=== PATIENT | female | born 1940 | race Caucasian/White ===

== ENCOUNTER → 2019-09-23 13:08 | Outpatient (BNVA) | payer MEDICARE, SELFPAY | PROVIDERS: Family Provider Internal Medicine; PCP Internal Medicine; Visit Provider Orthopaedic Surgery | DX: M25.561 Pain in right knee (principal); M25.571 Pain in right ankle and joints of right foot; M17.11 Unilateral primary osteoarthritis, right knee | CPT/HCPCS: 73560; 73565; 73610 ==

== ENCOUNTER 2019-10-11 11:00 | Day surgery (SDC) | payer MEDICARE, SELFPAY ==
--- NOTE | 2019-10-11 11:35 | ECG_ITS ---
Measurements Intervals [place] Rate: 61 P: 46 WV: 127 QRS: 59 QRSD: 82 T: 72 QT: 400 QTc: [address] DEPRESSION [0.05+ mV ST DEPRESSION] Compared to ECG 04/18/2017 11:00:30 ST (T wave) deviation now present Sinus bradycardia no longer present Electronically Signed On 10-11-2019 15:46:14 CDT by Alta Ballard M.D. [email or web address]
--- NOTE | 2019-10-11 11:45 | ANES.PREANE2 ---
Pre-Anesthetic Assessment Pre-Anesthetic Assessment: Height/Weight: Height 1.55 m Preop Diagnosis: DJD Right Knee Proposed Procedure: Operation Date: 10/14/19 08:10 Proposed Procedures p Right Total Knee Arthroplasty 55284/M17.12 osteoarthritis of right knee(Right) - Dakota Hernandez MD Familial anesthetic complications: Angry upon awakening Social: Social History: No alcohol and No tobacco Exam: Pre-Anes Outpt Exam: alert, oriented x 3, clear to auscultation bilaterally and regular rate & rhythm Airway: Cervical ROM: WNL MP: 3 Additional comments: dentures Pulmonary: Pulmonary: Asthma CV/HEM: CV/HEM: Arrythmia and HTN Comments: lasix is for unilateral ankle swelling and is caused by knee : : None reported Hepatic: Hepatic: None reported GI: GI: None reported Metabolic: Metabolic: DM and Thyroid Musc/skel: Musc/skel: Lower Back Pain Neuropsych: Neuropsych: None reported Anesthetic Plan: ASA status: 2 Anesthesia: General and Regional (specify below) Risk of > 500 ml blood loss (7ml/kg in children): No PFSH Anesthesia PFSH: Social History (Updated 09/23/19 @ 13:29 by Glen Castro LPN) Smoking and tobacco status: never smoked Alcohol intake: never Data Anesthesia Cardiac Studies: No Data to Display
== END 2019-10-11 12:00 | disposition home or self-care (01) ==
LOC: OPS 01-30 10:07
PROVIDERS: PCP Internal Medicine; Visit Provider Orthopaedic Surgery
DX: Z01.818 Encounter for other preprocedural examination (principal); R94.31 Abnormal electrocardiogram [ECG] [EKG]; M17.11 Unilateral primary osteoarthritis, right knee
CPT/HCPCS: 93005

== ENCOUNTER 2019-10-28 12:42 | Observation (INO) | payer MEDICARE, SELFPAY ==
[2019-10-25 12:01] VITALS: BMI 26.4
[2019-10-28] VITALS (13 sets, daily range): BP systolic 90–145; BP diastolic 55–97; PULSE 66–101; RESP 16–20; TEMP 36.1–37.1; O2SAT 94–100
[2019-10-28 07:47] LABS: Glucose Point of Care 102 mg/dL (70-110)
[2019-10-28] MEDS: sodium chloride 0.9% 1,000 ML 30 ML IV (07:58)
--- NOTE | 2019-10-28 08:11 | P.ANESUD_ITS ---
Pre-Anesthetic Update Pre-Anesthetic Assessment: Date of Surgery/Procedure: 10/28/19 Preop Cecily gnosis: DJD Right Knee Proposed Procedure: Operation Date: 10/28/19 09:30 Proposed Procedures p Total Knee Arthroplasty 48319 M17.12(Right) - Dakota Hernandez MD Any changes to Pre-Anesthetic Assessment?: No Last Intake: Intake Last Liquid Date 10/27/19 Last Liquid Time 22:30 Last Solid Date 10/27/19 Last Solid Time 22:30 Labs Last 48hrs: Laboratory Results - last 48 hr 10/28/19 07:45 POC Glucose 102 Vitals: Temperature 96.9 F L 10/28/19 07:37 Temperature Source Temporal Artery S can 10/28/19 07:37 Pulse Rate 66 10/28/19 07:37 Pulse Rhythm 10/28/19 07:37 Pulse Strength 3+ Normal 10/28/19 07:37 Respiratory Rate 18 10/28/19 07:37 Blood Pressure 129/97 10/28/19 07:37 Blood Pressure Leda n 107 10/28/19 07:37 Pulse Oximetry 96 10/28/19 07:37 Oxygen Delivery Me thod 10/28/19 07:37 Exam: Pre-Anes Outpt Exam: alert, oriented x 3, clear to auscultation bilaterally and regular rate & rhythm Cardiac Studies: No Data to Display
--- NOTE | 2019-10-28 08:26 | ANES.PROC ---
Anesthesia Procedures Procedure/Date: 10/28/19 Nerve Block ^: Nerve Block 1: Main Anesthesia: general anesthesia Time Out Performed: Yes Consent: requested by attending/covering physician, from patient, risks and benefits reviewed and patient agrees to proceed Nerve block location: adductor canal (R) Anesthesia monitors applied: pulse oximetry, BP cuff and oxygen Nerve block position: supine Anesthetic Used: ropivicaine 0.5% and with decadron (4 mg) Amount of anesthesia used (mL): 30 Ultrasound used to: recognize landmarks and visualize and ID femerol nerve Interscalene/Femoral BLK: 4 stimuplex 21 g needle used for position and inplane approach, visualize local anesthetic spread and no vascular puncture identified Injection: neg aspiration of heme Patient Tolerated Procedure: well Complications: none
[2019-10-28] MEDS: midazolam 1 mg/mL INJ 2 mL 2 MG IVP (08:28)
--- NOTE | 2019-10-28 10:03 | W.PM.OPSFHP ---
Same Day Surgery H&P Indication for Procedure/HPI DATE OF PROCEDURE: October 28, 2019 CHIEF COMPLAINT/INDICATIONFOR SURGICAL PROCEDURE: Osteoarthritis right knee PREOP DIAGNOSIS: DJD Right Knee PLANNED PROCEDRUE: Operation Date: 10/28/19 09:30 Proposed Procedures p Total Knee Arthroplasty 35572 M17.12(Right) - Dakota Hernandez MD Medications/Allergies* Home Medications Medication Instructions Recorded Confirmed Type acetaminophen 500 mg tablet 1,000 mg PO Q6H PRN tab 09/23/19 10/28/19 History anastrozole 1 mg tablet 1 mg PO DAILY 09/23/19 10/28/19 History aspirin 81 mg tablet,delayed 81 mg PO DAILY 09/23/19 10/28/19 History release atorvastatin 20 mg tablet 20 mg PO DAILY 09/23/19 10/28/19 History calcium carbonate 600 mg calcium 600 mg PO DAILY 09/23/19 10/28/19 History (1,500 mg) tablet furosemide 20 mg tablet 10 mg PO QAM PRN 09/23/19 10/28/19 History levothyroxine 75 mcg capsule 75 mcg PO DAILY 09/23/19 10/28/19 History losartan 25 mg tablet 25 mg PO DAILY 09/23/19 10/28/19 History meloxicam 15 mg tablet 15 mg PO DAILY 09/23/19 10/28/19 History metformin 500 mg tablet 500 mg PO BID 09/23/19 10/28/19 History metoprolol tartrate 50 mg tablet 50 mg PO BID 09/23/19 10/28/19 History montelukast 10 mg tablet 10 mg PO DAILY 09/23/19 10/28/19 History multivitamin 1 tab PO DAILY 09/23/19 10/28/19 History sennosides 8.6 mg capsule 8.6 mg PO BID PRN 09/23/19 10/28/19 History Allergies/Adverse Reactions Allergy/AdvReac Type Severity Reaction Status Date / Time No Known Allergies Allergy Verified 10/25/19 10:35 Current Medications: Generic Name Dose Route Start Last Admin Trade Name Freq PRN Reason Stop Dose Admin Sodium Chloride 1,000 mls @ 30 mls/hr 10/28/19 06:15 10/28/19 07:58 Sodium Chloride 0.9% IV 10/29/19 06:14 30 mls/hr .Q24H ELIAN Administration Pertinent History/Comorbid Conditions* Social History Smoking and tobacco status: never smoked Alcohol intake: never Pertinent Exam Findings alert, oriented x 3 and clear to auscultation bilaterally Recommendations Surgery/Procedure today Coding Level of Care Code Acute Heating And Ventilating Drafter for Giovanni Cabello
[2019-10-28] MEDS: EPINEPHrine 1 mg/mL INJ XX (11:45)
[2019-10-28] MEDS: ketorolac 30 mg/mL INJ XX (11:46)
[2019-10-28] MEDS: tranexamic acid 1,000 mg/10mL SDV 1000 MG IRRIGATION (11:47)
--- NOTE | 2019-10-28 12:26 | XR_ITS ---
WS: [id number] Right knee, 2 views, 10/28/2019 Clinical Data: Right TKA Comparison: Standing knees, 09/23/2019 Findings: A right knee arthroplasty is in position. The components are in good apposition. Anterior surgical st aples are seen. There is air in the joint from the recent surgery. XR/XR knee RT 1-2V 40031 Impression: Right knee arthroplasty.
--- NOTE | 2019-10-28 12:26 | PM.OP ---
Operative Report Date of procedure: October 28, 2019 Pre-op Diagnosis: DJD Right Knee Post-op diagnosis: same Post-op Findings: Same Procedure Done: Right total knee arthroplasty Implants: [place] total knee arthroplasty components were used includin) Size 1 triathalon cruciate retaining femoral component 2) Size 1 Tritanium tibial component 3) 29 mm /9 mm thickness Tritanium asymetric patella 4) Size 1/11 mm thickness CR tibial bearing insert Pathology: none sent Surgeon: Dakota Hernandez Anesthesia: General and Nerve Block (Adductor canal block) Estimated blood loss (mL): 200 Findings: Patient had severe eburnation of the medial femoral condyle medial tibial plateau with bone loss about the far medial tibia. Condition: stable Disposition: PACU Procedure: The patient was taken to the operating room. Patient was given 1 g of tranexamic acid . The above anesthesia provided by the anesthesia service. A timeout was performed. The patient was prepped and draped in the usual fashion with the lower extremity exposed. A anterior incision was made, midline, from a point proximal to the patella to the distal tibial tubercle. Dissection was accomplished through the subcutaneous fat to the extensor mechanism. The vastus medialis oblique is musculature was elevated with a retractor and a capsular incision made from the medial patella along the patellar tendon up into the superior capsule. The patella could be displaced laterally and the knee flexed. The patellar fat pad was resected to provide better visibility. Retractors were placed medially and laterally adjacent to the tibial plateau. The femoral canal was drilled in line with the longitudinal axis of the femur. Intramedullary femoral guide for used to make a distal femoral cut in 5 degrees of valgus, resecting 8 mm from the more prominent condyle. Next the extra medullary tibial guide was placed in alignment with the longitudinal axis of the tibia. The cutting guides were set to remove just over 9 mm from the high tibial plateau. The proximal tibia was then cut. The femoral measuring guide was then placed over the distal femur. Rotation was verified checking the relationship of the guide to the condyle and the trochlear groove. The femur was measured and cut for the desired femoral component. The desired tibial baseplate was then chosen. A trial reduction with the femur tibial baseplate and polyethylene was done, assuring that the knee was stable throughout full motion. Ligament balancing involved release only deep medial collateral ligament and removal of small medial osteophytes.The tibia was prepared for the tibial baseplate. Patellar thickness was then measured. The patella was cut removing articular cartilage and prepared for appropriate size patellar button. All surfaces were cleaned with pulsatile lavage. The femur tibia and patella were then press-fit into place. The posterior capsule and collateral ligaments were then injected with a solution of 100 mL of 0.2% ropivacaine, 1 mL of a 1:1000 epinephrine solution, and 30 mg of Toradol. Final polyethylene component was then snapped into place into the tibia. 2 grams of tranexamic acid were applied to the wound. The tourniquet was deflated. The tranxanemic acid was left contact with the knee for 5 minutes before the knee was irrigated with saline. The extensor retinaculum was closed with 1 Ethibond. The subcutaneous tissues were closed with 2-0 Vicryl and the skin was closed with skin jovana. A compressive dressing was applied. The patient was taken to recovery room in stable condition.
--- NOTE | 2019-10-28 12:27 | SUR.PHASEI ---
1221- ORAL AIRWAY REMOVED, SIMPLE MASK IN PLACE AT 8LPM, SAT 99%
[2019-10-28] MEDS: chlorhexidine gluconate 0.12% Btl 473 mL 30 ML MUCOUS MEM ×3 (15:40→20:10)
[2019-10-28] MEDS: oxyCODONE 5 mg IR Tab/Cap PO ×2 (16:01→20:09)
[2019-10-28 17:52] LABS: Glucose Point of Care 147 mg/dL (70-110)
[2019-10-28] MEDS: sennosides-docusate Tablet 2 TAB PO (18:17)
[2019-10-28] MEDS: metoprolol tartrate 50 mg Tablet PO (18:18)
[2019-10-28] MEDS: atorvastatin 40 mg Tablet 20 MG PO (20:09)
[2019-10-28] MEDS: sodium chloride 0.9% 1,000 ML 100 ML IV (20:10)
[2019-10-28 22:18] LABS: Glucose Point of Care 179 mg/dL (70-110)
[2019-10-29 04:00] VITALS: BP 102/67; PULSE 72; RESP 16; TEMP 36.6; O2SAT 96
[2019-10-29 06:36] VITALS: RESP 16
[2019-10-29] MEDS: oxyCODONE 5 mg IR Tab/Cap PO (06:36)
[2019-10-29 06:38] LABS: Glucose Point of Care 118 mg/dL (70-110)
[2019-10-29 07:18] VITALS: BP 157/76; PULSE 86; RESP 16; TEMP 36.9; O2SAT 97
[2019-10-29] MEDS: aspirin 81 mg EC Tablet PO (08:00)
[2019-10-29 08:01] VITALS: BP 157/76
[2019-10-29] MEDS: multivitamin therapeutic Tablet 1 TAB PO (08:01)
[2019-10-29] MEDS: meloxicam 7.5 mg tablet 15 MG PO (08:01)
[2019-10-29] MEDS: metoprolol tartrate 50 mg Tablet PO (08:01)
[2019-10-29] MEDS: levothyroxine 150 mcg Tablet 75 MCG PO (08:01)
[2019-10-29] MEDS: losartan 50 mg Tablet 25 MG PO (08:01)
[2019-10-29] MEDS: chlorhexidine gluconate 0.12% Btl 473 mL 30 ML MUCOUS MEM (08:02)
[2019-10-29] MEDS: sennosides-docusate Tablet 2 TAB PO (08:02)
[2019-10-29] MEDS: anastrozole 1 mg Tablet PO (08:06)
--- NOTE | 2019-10-29 08:06 | P.DS_ITS ---
Discharge Providers Date of Admission: 10/28/19 12:42 Date of Discharge: October 29, 2019 Attending Provider at Admission: Dakota Hernandez MD Attending Provider at Discharge: Dakota Hernandez MD Primary Care Provider: Balaji Angulo MD Diagnoses at Discharge Discharge Diagnosis (1) Osteoarthritis of right knee: Status: Resolved (2) Status post right knee replacement: Status: Acute Reason for Visit Reason for Visit: Reason For Visit: Primary ostoarthrists of right knee Hospital Course Discharge Summary: Patient underwent elective right total knee arthroplasty on 10/28/2019. Postoperatively she did very well. Her pain was well controlled with oral medications. She made excellent progress with therapy. Her diabetes is initially managed with a sliding scale insulin. She was placed on metformin on her first postoperative day. On that day she was independent with her walker and thought stable for discharge. Physical Exam Narrative: EXAM NARRATIVE: On the day of discharge her incision revealed only trace drainage as expected. She has no calf swelling. Her motion was from 10 d egrees to 90 degrees. She had no distal neurovascular deficit Urinary Catheter Management^: Tejeda: Cath Placed During This Visit: yes, but has since been removed by the nurse Reason for Continuing Indwelling Catheter: Perioperative Use in Selected Surgeries Urinary Catheter Date of Insertion: 10/28/19 Urinary Catheter Time of Insertion: 10:35 Date Urinary Catheter Removed: 10/29/19 Time Urinary Catheter Discontinued: 06:00 Discharge Data Data Completed and Pending: Completed Studies During Hospitalization Category Date Time Status XR knee RT 1-2V 7 3560 Routine Exams 10/28/19 12:26 Completed Pending at discharge Category Date Time Status Hemoglobin AM LAB S Lab 10/30/19 04:00 Ordered Labs from last 24 hours 10/29/19 10/28/19 10/28/19 06:15 22:10 17:19 POC Glucose 118 179 147 Vitals: Last Vital Signs Temp 98.4 F 10/29/19 07:18 Pulse 86 10/29/19 07:18 Resp 16 10/29/19 07:18 BP 157/76 10/29/19 07:18 Pulse Ox 97 10/29/19 07:18 Discharge Plan Discharge Patient Disposition: Home, Self-Care Condition: Stable Prescriptions: New oxycodone 5 mg Tablet 5 mg PO Q4H PRN (Reason: Moderate Pain) Qty: 30 RF: 0 Continued acetaminophen [Tylenol Extra Strength] 500 mg tablet 1,000 mg PO Q6H PRN (Reason: Pain) RF: 0 anastrozole 1 mg tablet 1 mg PO DAILY RF: 0 aspirin 81 mg tablet,delayed release (DR/EC) 81 mg PO DAILY RF: 0 atorvastatin 20 mg tablet 20 mg PO DAILY RF: 0 calcium carbonate [Calcium 600] 600 mg calcium (1,500 mg) tablet 600 mg PO DAILY RF: 0 levothyroxine 75 mcg capsule 75 mcg PO DAILY RF: 0 losartan 25 mg tablet 25 mg PO DAILY RF: 0 meloxicam 15 mg tablet 15 mg PO DAILY RF: 0 metformin 500 mg tablet 500 mg PO BID RF: 0 metoprolol tartrate 50 mg tablet 50 mg PO BID RF: 0 montelukast 10 mg tablet 10 mg PO DAILY RF: 0 multivitamin [Daily Multi-Vitamin] Tablet 1 tab PO DAILY RF: 0 senna 8.6 mg capsule 8.6 mg PO BID PRN (Reason: Constipation) RF: 0 furosemide [Lasix] 20 mg tablet 10 mg PO QAM PRN (Reason: Abdominal Discomfort) RF: 0 mupirocin 2 % ointment 1 applic TOPICAL BID Qty: 30 RF: 0 Discharge Orders: Discharge Order (Routine); Ordered 10/29/19 Ordered By: Dakota Hernandez Other Ambulatory Orders: DME: Ro[facility] (Order) Location: None Selected Ordered By: Dakota Hernandez Referrals: [facility] ([facility]) [Outside] Dakota Hernandez MD [Physician] - 2 weeks Discharge Diet: Advance as tolerated Discharge Activity: Limit activity as instructed Activity Restrictions/Additional Instructions: May shower once incisions completely free of drainage. Replaced dressings as needed for drainage.. Take Meloxicam as before surgery Take oxycodone for breakthrough pain. Exercises per physical therapy. Ice and elevate knees as needed for pain and swelling.. Discharge Attestations Time Spent in Discharge Care*: other Quality Metrics Clinical Quality Measures During this hospital stay, did patient experience: None Coding Level of Care Code Acute Diagnostic Sales Specialist for Giovanni Fwlady Diagnoses Osteoarthritis of right knee M17.11 Status post right knee replacement Z96.651
[2019-10-29 08:56] VITALS: RESP 16
[2019-10-29] MEDS: morphine 4 mg/mL SDV 1 mL 2 MG IVP (08:56)
[2019-10-29 09:49] VITALS: BP 157/76; PULSE 86; RESP 16; TEMP 36.9; O2SAT 97
== END 2019-10-29 10:35 | disposition home or self-care (01) ==
LOC: MEDSURG 14:40
PROVIDERS: Admitting Provider Orthopaedic Surgery; Family Provider Internal Medicine; PCP Internal Medicine; Visit Provider Orthopaedic Surgery
PROC: (CPT 27447; principal; 2019-10-28 09:20)
DX: M17.11 Unilateral primary osteoarthritis, right knee (principal); Z79.82 Long term (current) use of aspirin
CPT/HCPCS: 27447; 12345; 36416; 51702; 73560; 82962; 96361; 96365; 96374; 96375; 97110; 97116; 97161; 97166; C1776; G0378; J0171; J0690; J1100; J1580; J1815; J1885; J2250; J2270; J2405; J2704; J2795; J3010; J3490; J7030; J8999

== ENCOUNTER 2019-11-20 06:00 | Outpatient (RCR) | payer MEDICARE, SELFPAY | END 2019-12-10 23:59 | disposition home or self-care (01) | LOC: WPT 06:00 | PROVIDERS: PCP Internal Medicine; Referring Provider Orthopaedic Surgery; Visit Provider Orthopaedic Surgery | DX: Z47.89 Encounter for other orthopedic aftercare (principal); Z96.651 Presence of right artificial knee joint | CPT/HCPCS: 97110; 97140; 97150; 97162; 97530 ==

== ENCOUNTER 2019-11-29 08:53 | Outpatient (CLI) | payer MEDICARE, SELFPAY ==
[2019-11-29 09:36] LABS: Basophils % 0.6 %; Eosinophils # 0.3 10^3/uL (0.0-0.8); Eosinophils % 4.9 %; Hematocrit 40.1 % (37.0-47.0); Hemoglobin 12.2 g/dL (11.5-15.3); Lymphocytes # 1.9 10^3/uL (0.8-4.8); Lymphocytes % 35.3 %; Mean Corpuscular HGB Conc 30.4 g/dL (30.0-36.0); Mean Corpuscular Hemoglobin 30.1 pg (28.0-34.0); Mean Platelet Volume 9.6 fL (7.4-10.4); Monocytes # 0.6 10^3/uL (0.2-0.9); Monocytes % 10.6 %; Neutrophils # 2.6 10^3/uL (1.8-7.7); Neutrophils % 48.4 %; Nucleated Red Blood Cells % 0 %; Platelet Count 230 10^3/cmm (130-400); Red Blood Count 4.05 10^6/uL (4.1-5.3); Red Cell Distribution Width 14.7 % (12.1-15.1); White Blood Count 5.3 10^3/uL (4.0-10.0)
[2019-11-29 10:11] LABS: Alanine Aminotransferase 9 U/L (0-33); Albumin Level 4.4 g/dL (3.5-5.2); Alkaline Phosphatase 104 IU/L (35-105); Anion Gap 13.4 (5-19); Aspartate Amino Transferase 15 U/L (0-32); Blood Urea Nitrogen 23 mg/dL (8-23); Carbon Dioxide 26 mmol/L (22-29); Chloride 104 mmol/L (98-107); Globulin 2.2 g/dL (1.3-4.6); Glucose 88 mg/dL (65-115); Osmolality Calculated 284 mOsm/kg (285-295); Potassium 4.4 mmol/L (3.5-5.1); Sodium 139 mmol/L (136-145); Total Bilirubin 0.4 mg/dL (0.15-1.2); Total Protein 6.6 g/dL (6.6-8.7)
--- NOTE | 2019-11-29 10:43 | ONC FU_ITS ---
Dr. 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 , patient recently underwent left breast mass excision with sentinel lymph node biopsy on 04/20/2017, tolerated procedure very well final pathology report showed DCIS with medial margin DCIS within 1 mm of inked margin rest was clear and no invasive component was seen but DCIS 2.5 x 1.5 cm lymph node was negative ER 100% NH 99% HER-2/te negative on 05/11/2017 she underwent reexcision and it shows residual DCIS DCIS within 2 mm of posterior inked margin. s/p postlumpectomy radiation therapy. started On Arimidex/vitamin D/calcium on 06/19 2017 , tolerating well Follow-up mammogram done on 05/22/2019 showed BI-RADS 2, benign Came for follow-up, denies any specific complaint today, no fever chills, no nausea or vomiting, no diarrhea or constipation, no new musculoskeletal pain. Since her last visit she underwent right knee replacement on October 28, 2019, now healing well. Tolerating Arimidex/vitamin D/calcium well otherwise Medications: Acetaminophen PM Ex St 1 Tablet (of 500-25 mg) Oral at bedtime, Arimidex 1 (1 mg) Tablet Oral daily, Aspirin 1 (81 mg) Tablet Oral daily, Budesonide-Formoterol Fumarate 1 (160-4.5 mcg/act) Aerosol Inhalation b.i.d., Docusate Sodium 1 Tablet (of 100 mg) Oral daily, Levothyroxine Sodium 1 Tablet (of 88 mcg) Oral daily, Lipitor 1 Tablet (of 20 mg) Oral daily, Lisinopril 1 Tablet (of 5 mg) Oral daily, Losartan Potassium 1 Tablet (of 25 mg) Oral daily, MetFORMIN HCl 1 Tablet (of 500 mg) Oral daily, Metoprolol Tartrate 1 Tablet (of 50 mg) Oral b.i.d., Montelukast Sodium 1 Tablet (of 10 mg) Oral daily, Naproxen 1 Tablet (of 500 mg) Oral b.i.d. Allergies: No Known Allergies. Review of Systems: Constitutional - Appetite is fair and weight is stable. No fever, chills, hot flashes, or night sweats. Energy level is poor, ENMT - Patient denies sinus congestion/drainage. No mouth sores. No sore throat or difficulty swallowing, Hematologic/Lymphatic - No abnormal bruising or bleeding, Respiratory - Some shortness of breath with exertion. No cough. No pleuritic pain or hemoptysis, Cardiovascular - No angina pain. No palpitations, Gastrointestinal - No nausea or vomiting. No heartburn or acid reflux. No diarrhea or constipation. No blood in the stool or black stools, Genitourinary (F) - No dysuria or hematuria. No urinary frequency. No urgency or incontinence, Musculoskeletal - Chronic joint pain , Neurologic - Occasional headache, no dizziness. No numbness/paresthesias or other focal neurologic symptoms, Psychiatric - No anxiety or depression. No insomnia. Vital Signs: Performed on Nov 29, 2019 10:28 Height - 62.00 in Weight - 138.0 lbs (LOW) BSA - 1.63 sq.m BMI - 25.24 Temperature - 98.1 F (LOW) Pulse - 67 /min Respiration - 18 /min BP - 131/84 mm(hg) O2 Sat - 96 % Pain - 0 Performance Status: 0 - Fully active, able to carry on all predisease activities without restrictions. (ECOG) Physical Examination: Respiratory - Lungs are clear, Cardiovascular - Regular rate and rhythm of heart, Gastrointestinal - Abdomen soft, bowel sounds present, Extremities - No visible edema. Lab/Imaging: Most recent lab results are not available for this patient. Impression: DCIS with no invasive component. Involving left breast status post lumpectomy with sentinel lymph node on 04/20/2017, status post reexcision for positive surgical margin on 05/11/2017 showed residual DCIS. 2.5 x 1.5 cm in size, grade 3 pTis (DCIS) sentinel lymph node negative for metastatic disease pN0 ER 100% NH 99% HER-2/te negative Status post postlumpectomy radiation therapy Started on Arimidex 1 mg vittamin D/calcium supplements daily 06/20/17 Persistent Left breast retroareolar mass questionable etiology, postradiation changes versus recurrence/progression of disease Repeat mammogram on 11/01/2017 showed at 11:00 position complex 1.8 x 1.1 x 1.2 cystic complex fluid collection with a few internal septations. No internal vascularity could be due to postoperative changes but indeterminate so aspiration/sampling was recommended. Left breast nodule excisional biopsy done on 12/22/2017 showed no atypia or malignancy identified but compatible with lipoma Plan: Discussed with patient regarding her labs white blood count 5.3 hemoglobin 12.2 hematocrit 40.1 platelets 230,000 CMP within normal limits Clinically, patient is doing well with no signs symptoms suggestive of recurrence of disease, tolerating adjuvant Arimidex/vitamin D/calcium well. She will return to clinic in 6 months with follow-up mammogram. Signed By: Bertha Dumont M.D. <<Signature on File>>
== END 2019-11-29 08:54 | disposition home or self-care (01) ==
PROVIDERS: PCP Internal Medicine; Visit Provider Internal Medicine Hematology & Oncology
DX: Z08 Encounter for follow-up examination after completed treatment for malignant neoplasm (principal); Z86.000 Personal history of in-situ neoplasm of breast; Z79.811 Long term (current) use of aromatase inhibitors; Z92.3 Personal history of irradiation
CPT/HCPCS: 36415; 80053; 85025; G0463

== ENCOUNTER 2019-12-11 06:00 | Outpatient (RCR) | payer MEDICARE, SELFPAY | END 2020-01-10 23:59 | disposition home or self-care (01) | LOC: WPT 06:00 | PROVIDERS: PCP Internal Medicine; Referring Provider Orthopaedic Surgery; Visit Provider Orthopaedic Surgery | DX: Z47.1 Aftercare following joint replacement surgery (principal); Z96.651 Presence of right artificial knee joint | CPT/HCPCS: 97110 ==

== ENCOUNTER 2020-05-26 09:32 | Outpatient (CLI) | payer MEDICARE, SELFPAY ==
--- NOTE | 2020-05-26 09:42 | MM_ITS ---
WS: [id number] Bilateral diagnostic digital mammogram, 05/26/2020 Clinical Data: HX OF BREAST CA Comparison: 05/22/2019, 11/01/2017, 01/09/2017, 04/27/2016, 09/29/2015, 09/18/2014. Findings: The breasts are heterogeneously dense. There is skin retraction and thickening in the left breast unc hanged from surgery and radiation therapy. There are vascular calcifications in both breasts. The rig ht breast shows no spiculated masses or clustered calcifications. MM/[id number] Impression: 1. Negative right breast unchanged. 2. Postsurgical and treatment changes in the left breast unchanged. 3. Recommend annual mammograms. BIRADS: 2-Benign FOLLOW UP: 1 Year Follow-up The CAD color checker roving or yarn was used.
== END 2020-05-26 09:33 | disposition home or self-care (01) ==
LOC: RADSHAW 09:35
PROVIDERS: PCP Internal Medicine; Visit Provider Internal Medicine Hematology & Oncology
DX: Z85.3 Personal history of malignant neoplasm of breast (principal)
CPT/HCPCS: 77066

== ENCOUNTER 2020-05-29 08:29 | Outpatient (CLI) | payer MEDICARE, SELFPAY ==
--- NOTE | 2020-05-29 09:12 | ONC FU_ITS ---
Dr. 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 , patient recently underwent left breast mass excision with sentinel lymph node biopsy on 04/20/2017, tolerated procedure very well final pathology report showed DCIS with medial margin DCIS within 1 mm of inked margin rest was clear and no invasive component was seen but DCIS 2.5 x 1.5 cm lymph node was negative ER 100% [place] 99% HER-2/te negative on 05/11/2017 she underwent reexcision and it shows residual DCIS DCIS within 2 mm of posterior inked margin. s/p postlumpectomy radiation therapy. started On Arimidex/vitamin D/calcium on 06/19 2017 , tolerating well Follow-up mammogram done on 05/22/2019 showed BI-RADS 2, benign Follow-up mammogram done on May 26, 2020 showed postsurgical changes in left breast, negative right breast, BI-RADS 2, benign Came for follow-up, denies any specific complaints, no fever chills, no nausea or vomiting, no diarrhea or constipation, no hot flashes, no worsening of chronic mild musculoskeletal discomfort especially involving left shoulder and right hand. Tolerating Arimidex/vitamin D/calcium well Medications: Acetaminophen PM Ex St 1 Tablet (of 500-25 mg) Oral at bedtime, Arimidex 1 (1 mg) Tablet Oral daily, Aspirin 1 (81 mg) Tablet Oral daily, Budesonide-Formoterol Fumarate 1 (160-4.5 mcg/act) Aerosol Inhalation b.i.d., Docusate Sodium 1 Tablet (of 100 mg) Oral daily, Levothyroxine Sodium 1 Tablet (of 88 mcg) Oral daily, Lipitor 1 Tablet (of 20 mg) Oral daily, Lisinopril 1 Tablet (of 5 mg) Oral daily, Losartan Potassium 1 Tablet (of 25 mg) Oral daily, MetFORMIN HCl 1 Tablet (of 500 mg) Oral b.i.d., Metoprolol Tartrate 1 Tablet (of 50 mg) Oral b.i.d., Montelukast Sodium 1 Tablet (of 10 mg) Oral daily, Naproxen 1 Tablet (of 500 mg) Oral b.i.d. Allergies: No Known Allergies. Review of Systems: Constitutional - Appetite is fair and weight is stable. No fever, chills, hot flashes, or night sweats. Energy level is poor, ENMT - Patient denies sinus congestion/drainage. No mouth sores. No sore throat or difficulty swallowing, Hematologic/Lymphatic - No abnormal bruising or bleeding, Respiratory - Some shortness of breath with exertion. No cough. No pleuritic pain or hemoptysis, Cardiovascular - No angina pain. No palpitations, Gastrointestinal - No nausea or vomiting. No heartburn or acid reflux. No diarrhea or constipation. No blood in the stool or black stools, Genitourinary (F) - No dysuria or hematuria. No urinary frequency. No urgency or incontinence, Musculoskeletal - Chronic joint pain, Pt also reports muscle aches, specifically in shoulder , Neurologic - Occasional headache, no dizziness. No numbness/paresthesias or other focal neurologic symptoms, Psychiatric - No anxiety or depression. No insomnia. Vital Signs: Performed on May 29, 2020 08:43 Height - 62.00 in Weight - 137.4 lbs (LOW) BSA - 1.63 sq.m BMI - 25.13 Temperature - 97.2 F (LOW) Pulse - 64 /min Respiration - 20 /min BP - 155/90 mm(hg) (HIGH) O2 Sat - 98 % Pain - 0 Performance Status: 1 - No physically strenuous activity, but ambulatory and able to carry out light or sedentary work (e.g. office work, light house work). (ECOG) Physical Examination: Respiratory - Lungs are clear to auscultation, Cardiovascular - Regular rate and rhythm of heart, Gastrointestinal - Soft, bowel sounds present, Extremities - No visible edema or rash. Lab/Imaging: Most recent lab results are not available for this patient. Impression: DCIS with no invasive component. Involving left breast status post lumpectomy with sentinel lymph node on 04/20/2017, status post reexcision for positive surgical margin on 05/11/2017 showed residual DCIS. 2.5 x 1.5 cm in size, grade 3 pTis (DCIS) sentinel lymph node negative for metastatic disease pN0 ER 100% [place] 99% HER-2/te negative Status post postlumpectomy radiation therapy Started on Arimidex 1 mg vittamin D/calcium supplements daily 06/20/17 Persistent Left breast retroareolar mass questionable etiology, postradiation changes versus recurrence/progression of disease Repeat mammogram on 11/01/2017 showed at 11:00 position complex 1.8 x 1.1 x 1.2 cystic complex fluid collection with a few internal septations. No internal vascularity could be due to postoperative changes but indeterminate so aspiration/sampling was recommended. Left breast nodule excisional biopsy done on 12/22/2017 showed no atypia or malignancy identified but compatible with lipoma Plan: Discussed with patient regarding her labs white blood count 5.3 hemoglobin 12.2 hematocrit 40.1 platelets 230,000 CMP within normal limits Clinically, patient is doing well with no signs symptoms suggestive of recurrence of disease, tolerating adjuvant Arimidex/vitamin D/calcium well. She will return to clinic in 6 months with follow-up mammogram. Signed By: Bertha Dumont M.D. <<Signature on File>>
--- NOTE | 2020-05-29 09:17 | ONC FU_ITS ---
Dr. 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 , patient recently underwent left breast mass excision with sentinel lymph node biopsy on 04/20/2017, tolerated procedure very well final pathology report showed DCIS with medial margin DCIS within 1 mm of inked margin rest was clear and no invasive component was seen but DCIS 2.5 x 1.5 cm lymph node was negative ER 100% [place] 99% HER-2/te negative on 05/11/2017 she underwent reexcision and it shows residual DCIS DCIS within 2 mm of posterior inked margin. s/p postlumpectomy radiation therapy. started On Arimidex/vitamin D/calcium on 06/19 2017 , tolerating well Follow-up mammogram done on 05/22/2019 showed BI-RADS 2, benign Follow-up mammogram done on May 26, 2020 showed postsurgical changes in left breast, negative right breast, BI-RADS 2, benign Came for follow-up, denies any specific complaints, no fever chills, no nausea or vomiting, no diarrhea or constipation, no hot flashes, no worsening of chronic mild musculoskeletal discomfort especially involving left shoulder and right hand. Tolerating Arimidex/vitamin D/calcium well Medications: Acetaminophen PM Ex St 1 Tablet (of 500-25 mg) Oral at bedtime, Arimidex 1 (1 mg) Tablet Oral daily, Aspirin 1 (81 mg) Tablet Oral daily, Budesonide-Formoterol Fumarate 1 (160-4.5 mcg/act) Aerosol Inhalation b.i.d., Docusate Sodium 1 Tablet (of 100 mg) Oral daily, Levothyroxine Sodium 1 Tablet (of 88 mcg) Oral daily, Lipitor 1 Tablet (of 20 mg) Oral daily, Lisinopril 1 Tablet (of 5 mg) Oral daily, Losartan Potassium 1 Tablet (of 25 mg) Oral daily, MetFORMIN HCl 1 Tablet (of 500 mg) Oral b.i.d., Metoprolol Tartrate 1 Tablet (of 50 mg) Oral b.i.d., Montelukast Sodium 1 Tablet (of 10 mg) Oral daily, Naproxen 1 Tablet (of 500 mg) Oral b.i.d. Allergies: No Known Allergies. Review of Systems: Constitutional - Appetite is fair and weight is stable. No fever, chills, hot flashes, or night sweats. Energy level is poor, ENMT - Patient denies sinus congestion/drainage. No mouth sores. No sore throat or difficulty swallowing, Hematologic/Lymphatic - No abnormal bruising or bleeding, Respiratory - Some shortness of breath with exertion. No cough. No pleuritic pain or hemoptysis, Cardiovascular - No angina pain. No palpitations, Gastrointestinal - No nausea or vomiting. No heartburn or acid reflux. No diarrhea or constipation. No blood in the stool or black stools, Genitourinary (F) - No dysuria or hematuria. No urinary frequency. No urgency or incontinence, Musculoskeletal - Chronic joint pain, Pt also reports muscle aches, specifically in shoulder , Neurologic - Occasional headache, no dizziness. No numbness/paresthesias or other focal neurologic symptoms, Psychiatric - No anxiety or depression. No insomnia. Vital Signs: Performed on May 29, 2020 08:43 Height - 62.00 in Weight - 137.4 lbs (LOW) BSA - 1.63 sq.m BMI - 25.13 Temperature - 97.2 F (LOW) Pulse - 64 /min Respiration - 20 /min BP - 155/90 mm(hg) (HIGH) O2 Sat - 98 % Pain - 0 Performance Status: 1 - No physically strenuous activity, but ambulatory and able to carry out light or sedentary work (e.g. office work, light house work). (ECOG) Physical Examination: Respiratory - Lungs are clear to auscultation, Cardiovascular - Regular rate and rhythm of heart, Gastrointestinal - Soft, bowel sounds present, Extremities - No visible edema or rash. Lab/Imaging: Most recent lab results are not available for this patient. Impression: DCIS with no invasive component. Involving left breast status post lumpectomy with sentinel lymph node on 04/20/2017, status post reexcision for positive surgical margin on 05/11/2017 showed residual DCIS. 2.5 x 1.5 cm in size, grade 3 pTis (DCIS) sentinel lymph node negative for metastatic disease pN0 ER 100% [place] 99% HER-2/te negative Status post postlumpectomy radiation therapy Started on Arimidex 1 mg vittamin D/calcium supplements daily 06/20/17 Persistent Left breast retroareolar mass questionable etiology, postradiation changes versus recurrence/progression of disease Repeat mammogram on 11/01/2017 showed at 11:00 position complex 1.8 x 1.1 x 1.2 cystic complex fluid collection with a few internal septations. No internal vascularity could be due to postoperative changes but indeterminate so aspiration/sampling was recommended. Left breast nodule excisional biopsy done on 12/22/2017 showed no atypia or malignancy identified but compatible with lipoma Follow-up mammogram done on May 26, 2020 showed BI-RADS 2, benign Plan: .Discussed with patient regarding her mammogram findings which shows no evidence of recurrence of disease, clinically, she is doing well with no new signs symptoms suggestive of recurrence of disease,, tolerating Arimidex/vitamin D/calcium well considering her age and now on aromatase inhibitor, patient is high risk for osteoporosis, we will consider DEXA scan to assess bone health prior to her next visit Signed By: Bertha Dumont M.D. <<Signature on File>>
== END 2020-05-29 08:30 | disposition home or self-care (01) ==
LOC: ONCMED 08:31
PROVIDERS: PCP Internal Medicine; Visit Provider Internal Medicine Hematology & Oncology
DX: D05.12 Intraductal carcinoma in situ of left breast (principal); E55.9 Vitamin D deficiency, unspecified; E83.51 Hypocalcemia; Z79.818 Long term (current) use of other agents affecting estrogen receptors and estrogen levels
CPT/HCPCS: 99214

== ENCOUNTER → 2020-07-10 07:56 | Outpatient (BNVA) | payer MEDICARE, SELFPAY | PROVIDERS: PCP Internal Medicine; Visit Provider Orthopaedic Surgery | DX: Z47.1 Aftercare following joint replacement surgery (principal); Z96.651 Presence of right artificial knee joint | CPT/HCPCS: 73560; 73565 ==

== ENCOUNTER 2020-11-19 13:34 | Outpatient (CLI) | payer MEDICARE, SELFPAY ==
--- NOTE | 2020-11-19 13:47 | XR_ITS ---
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 FINDINGS: The L1-L4 bone mineral density measures 1.210 g/cm2. This corresponds to a T score score of 0.2 and Z score of 2.1. Left femoral neck bone mineral density measures 0.918 g/cm2. This corresponds to a T score of -0.7 an d Z score of 1.2. Right femoral neck bone mineral density measures 0.984 g/cm2. This corresponds to a T score -0.2of an d Z score of 1.7. Mean femoral neck bone mineral density measures 0.951 g/cm2. This corresponds to a T score of -0.5 an d Z score of 1.5. XR/XR DEXA axial skeleton* [id number] IMPRESSION: Normal bone mineralization. Patient's FRAX calculated 10 year probability for major osteoporotic fracture i s 18.6 % and osteoporotic hip fracture is 3.8%.
== END 2020-11-19 13:35 | disposition home or self-care (01) ==
PROVIDERS: PCP Internal Medicine; Visit Provider Internal Medicine Hematology & Oncology
DX: Z78.0 Asymptomatic menopausal state (principal); Z79.811 Long term (current) use of aromatase inhibitors
CPT/HCPCS: 77080

== ENCOUNTER 2020-11-27 08:40 | Outpatient (CLI) | payer MEDICARE, SELFPAY ==
[2020-11-27 09:31] LABS: Basophils # 0.1 10^3/uL (0.0-0.1); Basophils % 0.5 %; Eosinophils # 0.3 10^3/uL (0.0-0.8); Eosinophils % 3.5 %; Hematocrit 42.7 % (37.0-47.0); Hemoglobin 13.6 g/dL (11.5-15.3); Lymphocytes # 2.1 10^3/uL (0.8-4.8); Lymphocytes % 21.8 %; Mean Corpuscular HGB Conc 31.9 g/dL (30.0-36.0); Mean Corpuscular Volume 94.3 fL (81-99); Mean Platelet Volume 9.5 fL (7.4-10.4); Monocytes # 0.8 10^3/uL (0.2-0.9); Monocytes % 8.1 %; Neutrophils # 6.26 10^3/uL (1.8-7.7); Neutrophils % 65.6 %; Nucleated Red Blood Cells % 0 %; Platelet Count 235 10^3/cmm (130-400); Red Blood Count 4.53 10^6/uL (4.1-5.3); Red Cell Distribution Width 13.2 % (12.1-15.1); White Blood Count 9.5 10^3/uL (4.0-10.0)
[2020-11-27 09:39] LABS: Alanine Aminotransferase 14 U/L (0-33); Albumin Level 4.1 g/dL (3.5-5.2); Alkaline Phosphatase 78 IU/L (35-105); Anion Gap 15.3 (5-19); Aspartate Amino Transferase 16 U/L (0-32); Blood Urea Nitrogen 40 mg/dL (8-23); Calcium 9.3 mg/dL (8.5-10.5); Carbon Dioxide 28 mmol/L (22-29); Chloride 104 mmol/L (98-107); Globulin 2.3 g/dL (1.3-4.6); Glucose 111 mg/dL (65-115); Osmolality Calculated 306 mOsm/kg (285-295); Potassium 4.3 mmol/L (3.5-5.1); Sodium 143 mmol/L (136-145); Total Bilirubin 0.5 mg/dL (0.15-1.2); Total Protein 6.4 g/dL (6.6-8.7)
--- NOTE | 2020-11-27 11:44 | ONC FU_ITS ---
Dr. 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 , patient recently underwent left breast mass excision with sentinel lymph node biopsy on 04/20/2017, tolerated procedure very well final pathology report showed DCIS with medial margin DCIS within 1 mm of inked margin rest was clear and no invasive component was seen but DCIS 2.5 x 1.5 cm lymph node was negative ER 100% [place] 99% HER-2/te negative on 05/11/2017 she underwent reexcision and it shows residual DCIS DCIS within 2 mm of posterior inked margin. s/p postlumpectomy radiation therapy. started On Arimidex/vitamin D/calcium on 06/19 2017 , tolerating well Follow-up mammogram done on 05/22/2019 showed BI-RADS 2, benign Follow-up mammogram done on May 26, 2020 showed postsurgical changes in left breast, negative right breast, BI-RADS 2, benign Tolerating Arimidex/vitamin D/calcium well DEXA scan done on November 20, 2019 shows normal bone mineralization Came for follow-up, denies any specific complaints, no fever chills, no nausea or vomiting no diarrhea constipation, no bony pain except chronic left shoulder and hip pain, as per patient she had steroid injection to her left shoulder but lasted only 2 weeks and now left shoulder replacement is under consideration. Otherwise, denies any heart flashes or new bony pains, tolerating Arimidex/vitamin D/calcium well her follow-up DEXA scan shows normal bone mineralization Medications: Acetaminophen PM Ex St 1 Tablet (of 500-25 mg) Oral at bedtime, Arimidex 1 (1 mg) Tablet Oral daily, Budesonide-Formoterol Fumarate 1 (160-4.5 mcg/act) Aerosol Inhalation b.i.d., Furosemide (20 mg) Tablet Oral daily, Levothyroxine Sodium 1 Tablet (of 75 mcg) Oral daily, Lipitor 1 Tablet (of 20 mg) Oral daily, Losartan Potassium 1 Tablet (of 25 mg) Oral daily, Meloxicam 1 Tablet (of 15 mg) Oral b.i.d., MetFORMIN HCl 1 Tablet (of 500 mg) Oral b.i.d., Metoprolol Tartrate 1 Tablet (of 50 mg) Oral b.i.d., Montelukast Sodium 1 Tablet (of 10 mg) Oral daily Allergies: No Known Allergies. Review of Systems: Review of Systems is not available for this patient. Vital Signs: Performed on Nov 27, 2020 10:35 Height - 62.00 in Weight - 138 lbs (HIGH) BSA - 1.63 sq.m BMI - 25.24 Temperature - 97.9 F (LOW) Pulse - 73 /min Respiration - 18 /min BP - 102/67 mm(hg) O2 Sat - 96 % Pain - 0 Fatigue - 0 Performance Status: 0 - Fully active, able to carry on all predisease activities without restrictions. (ECOG) Physical Examination: Respiratory - Lungs are clear to auscultation, Cardiovascular - Regular rate and rhythm of heart, Gastrointestinal - Soft, bowel sounds present, Extremities - No visible edema. Lab/Imaging: Most recent lab results are not available for this patient. Impression: DCIS with no invasive component. Involving left breast status post lumpectomy with sentinel lymph node on 04/20/2017, status post reexcision for positive surgical margin on 05/11/2017 showed residual DCIS. 2.5 x 1.5 cm in size, grade 3 pTis (DCIS) sentinel lymph node negative for metastatic disease pN0 ER 100% [place] 99% HER-2/te negative Status post postlumpectomy radiation therapy Started on Arimidex 1 mg vittamin D/calcium supplements daily 06/20/17 Persistent Left breast retroareolar mass questionable etiology, postradiation changes versus recurrence/progression of disease Repeat mammogram on 11/01/2017 showed at 11:00 position complex 1.8 x 1.1 x 1.2 cystic complex fluid collection with a few internal septations. No internal vascularity could be due to postoperative changes but indeterminate so aspiration/sampling was recommended. Left breast nodule excisional biopsy done on 12/22/2017 showed no atypia or malignancy identified but compatible with lipoma Follow-up mammogram done on May 26, 2020 showed BI-RADS 2, benign DEXA scan done on November 19, 2020 showed normal bone mineralization Plan: Discussed with patient regarding her labs white blood count 9.5 hemoglobin 13.6 hematocrit 42.7 platelets 235,000 CMP within normal limits except creatinine 1.3 and BUN 40 and her DEXA scan shows normal bone mineralization Clinically, patient doing well with no new signs symptoms history of recurrence of disease, tolerating Arimidex/vitamin D/calcium well her follow-up DEXA scan shows a normal bone mineralization, her lab work-up also shows mildly elevated BUN/creatinine, probably due to mild dehydration, patient was advised to maintain good hydration Return to clinic in 6 months with mammogram Signed By: Bertha Dumont M.D. <<Signature on File>>
== END 2020-11-27 08:41 | disposition home or self-care (01) ==
PROVIDERS: PCP Internal Medicine; Visit Provider Internal Medicine Hematology & Oncology
DX: D05.12 Intraductal carcinoma in situ of left breast (principal); Z17.0 Estrogen receptor positive status [ER+]; Z90.12 Acquired absence of left breast and nipple; Z79.899 Other long term (current) drug therapy; Z79.811 Long term (current) use of aromatase inhibitors; Z92.21 Personal history of antineoplastic chemotherapy
CPT/HCPCS: 80053; 85025; 99214

== ENCOUNTER → 2021-03-04 09:27 | Outpatient (BNVA) | payer MEDICARE, SELFPAY | PROVIDERS: PCP Internal Medicine; Referring Provider Internal Medicine; Visit Provider Anesthesiology | DX: G89.29 Other chronic pain (principal); M54.5 Low back pain; Z79.891 Long term (current) use of opiate analgesic | CPT/HCPCS: 99204; 99213 ==

== ENCOUNTER → 2021-04-05 09:50 | Outpatient (BNVA) | payer MEDICARE, SELFPAY | PROVIDERS: PCP Internal Medicine; Referring Provider Internal Medicine; Visit Provider Orthopaedic Surgery | DX: M25.512 Pain in left shoulder (principal) | CPT/HCPCS: 73030 ==

== ENCOUNTER 2021-06-23 13:36 | Outpatient (CLI) | payer MEDICARE, SELFPAY ==
--- NOTE | 2021-06-23 14:16 | ONC FU_ITS ---
Dr. 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 , patient recently underwent left breast mass excision with sentinel lymph node biopsy on 04/20/2017, tolerated procedure very well final pathology report showed DCIS with medial margin DCIS within 1 mm of inked margin rest was clear and no invasive component was seen but DCIS 2.5 x 1.5 cm lymph node was negative ER 100% [place] 99% HER-2/te negative on 05/11/2017 she underwent reexcision and it shows residual DCIS DCIS within 2 mm of posterior inked margin. s/p postlumpectomy radiation therapy. started On Arimidex/vitamin D/calcium on 06/19 2017 , tolerating well Follow-up mammogram done on 05/22/2019 showed BI-RADS 2, benign Follow-up mammogram done on May 26, 2020 showed postsurgical changes in left breast, negative right breast, BI-RADS 2, benign Tolerating Arimidex/vitamin D/calcium well DEXA scan done on November 20, 2019 shows normal bone mineralization Came for follow-up, denies any specific complaints, no fever or chills, no nausea or vomiting, no diarrhea or constipation, no new bony pains except chronic left shoulder pain for which she received corticosteroid shot from her PMD, which is helping. Otherwise tolerating Arimidex along with vitamin D and calcium well Medications: Acetaminophen PM Ex St 1 Tablet (of 500-25 mg) Oral at bedtime, Arimidex 1 (1 mg) Tablet Oral daily, Budesonide-Formoterol Fumarate 1 (160-4.5 mcg/act) Aerosol Inhalation b.i.d., Furosemide (20 mg) Tablet Oral daily, Levothyroxine Sodium 1 Tablet (of 75 mcg) Oral daily, Lipitor 1 Tablet (of 20 mg) Oral daily, Losartan Potassium 1 Tablet (of 25 mg) Oral daily, Meloxicam 1 Tablet (of 15 mg) Oral b.i.d., MetFORMIN HCl 1 Tablet (of 500 mg) Oral b.i.d., Metoprolol Tartrate 1 Tablet (of 50 mg) Oral b.i.d., Montelukast Sodium 1 Tablet (of 10 mg) Oral daily Allergies: No Known Allergies. Review of Systems: Review of Systems is not available for this patient. Vital Signs: Vitals are not available for this patient. Performance Status: 0 - Fully active, able to carry on all predisease activities without restrictions. (ECOG) Physical Examination: Respiratory - Lungs are clear to auscultation, Cardiovascular - Regular rate and rhythm of heart, Gastrointestinal - Soft, bowel sounds present, Extremities - No visible edema. Lab/Imaging: Most recent lab results are not available for this patient. Impression: DCIS with no invasive component. Involving left breast status post lumpectomy with sentinel lymph node on 04/20/2017, status post reexcision for positive surgical margin on 05/11/2017 showed residual DCIS. 2.5 x 1.5 cm in size, grade 3 pTis (DCIS) sentinel lymph node negative for metastatic disease pN0 ER 100% [place] 99% HER-2/te negative Status post postlumpectomy radiation therapy Started on Arimidex 1 mg vittamin D/calcium supplements daily 06/20/17 Persistent Left breast retroareolar mass questionable etiology, postradiation changes versus recurrence/progression of disease Repeat mammogram on 11/01/2017 showed at 11:00 position complex 1.8 x 1.1 x 1.2 cystic complex fluid collection with a few internal septations. No internal vascularity could be due to postoperative changes but indeterminate so aspiration/sampling was recommended. Left breast nodule excisional biopsy done on 12/22/2017 showed no atypia or malignancy identified but compatible with lipoma Follow-up mammogram done on May 26, 2020 showed BI-RADS 2, benign DEXA scan done on November 19, 2020 showed normal bone mineralization Plan: Discussed with patient regarding her disease status, question concerns, she is tolerating Arimidex 1 mg p.o. daily along with vitamin D and calcium, patient is due for her follow-up mammogram as per patient she is scheduled for July 05, 2021, in that case we will review her mammogram and give her a call if there is any abnormality otherwise she return to clinic in 6 months, in the meantime continue with daily Arimidex along with vitamin D and calcium Signed By: Bertha Dumont M.D. <<Signature on File>>
== END 2021-06-23 13:37 | disposition home or self-care (01) ==
LOC: ONCMED 13:40
PROVIDERS: PCP Internal Medicine; Visit Provider Internal Medicine Hematology & Oncology
DX: Z85.3 Personal history of malignant neoplasm of breast (principal)
CPT/HCPCS: 99215

== ENCOUNTER 2021-07-05 12:10 | Outpatient (CLI) | payer MEDICARE, SELFPAY ==
--- NOTE | 2021-07-05 12:33 | MM_ITS ---
WS: [id number] BILATERAL DIGITAL DIAGNOSTIC MAMMOGRAM MAMMOGRAPHY WITH CAD CLINICAL INFORMATION: HX OF BREAST CANCER HISTORY: History of left breast cancer with radiation therapy left lumpectomies. COMPARISON: May 26, 2020 TECHNIQUE: Bilateral CC, MLO, and ML views. FINDINGS: Scattered fibroglandular densities bilaterally. Postoperative changes left breast lumpectomy with par enchymal fibrosis. Vascular calcification. Dystrophic calcification right breast. No suspicious focal mass, asymmetry, calcifications, or architectural distortion. No evidence of alcon gnancy. MM/[place] [id number] IMPRESSION: BI-RADS: 2-Benign FOLLOW UP: 1 Year Follow-up Recommend return to annual diagnostic mammography.
== END 2021-07-05 12:11 | disposition home or self-care (01) ==
PROVIDERS: PCP Internal Medicine; Visit Provider Internal Medicine
DX: Z85.3 Personal history of malignant neoplasm of breast (principal)
CPT/HCPCS: 77066

== ENCOUNTER → 2021-09-21 13:37 | Outpatient (BNVA) | payer MEDICARE, SELFPAY | PROVIDERS: PCP Internal Medicine; Visit Provider Orthopaedic Surgery | DX: M19.012 Primary osteoarthritis, left shoulder (principal); Z87.891 Personal history of nicotine dependence | CPT/HCPCS: 20610; 99213; 99215; J0702; J3490 ==

== ENCOUNTER → 2021-11-03 10:56 | Outpatient (BNVA) | payer MEDICARE, SELFPAY | PROVIDERS: PCP Internal Medicine; Visit Provider Orthopaedic Surgery | DX: M19.012 Primary osteoarthritis, left shoulder (principal) | CPT/HCPCS: 99213; 99214 ==

== ENCOUNTER 2021-12-16 08:36 | Outpatient (CLI) | payer MEDICARE, SELFPAY ==
--- NOTE | 2021-12-16 09:00 | CT_ITS ---
WS: [id number] CT LEFT SHOULDER HISTORY: Preop, chronic pain. Technique: All CT scans at [facility] use at least one of these dose optimization techniques: automated exposure control; mA and/or kV adjustment per patient size (includes targeted exams where dose is matched to clinical indication); or iterative reconstruction. DLP: 437.53 mGy.cm COMPARISON: LEFT shoulder radiograph 04/05/2021 Severe narrowing of the glenohumeral joint. There is bone upon bone. Sclerotic changes and subchondra l cysts on both sides of the glenohumeral joint. Osteophytic ridging around the humeral head. There a re a few tiny calcific or osseous densities surrounding the humeral head. There is a calcification in the rotator cuff interval. Probably due to calcific tendinitis. No acute fracture. Moderate narrowing of the AC joint with mild osteophytic ridging. Moderate atrophy of the supraspinatus muscle. There is a small amount of fluid along the subscapulari s tendon. 5 mm noncalcified nodule LEFT apex. CT/CT shoulder LT wo con* [id number] IMPRESSION: 1. Severe LEFT glenohumeral joint osteoarthritis with bone upon bone and bone remodeling. 2. Calcific tendinitis. 3. Moderate AC joint arthritis. 4. Noncalcified 5 mm nodule LEFT upper lobe. Recommend follow-up chest CT with IV contrast.
== END 2021-12-16 08:37 | disposition home or self-care (01) ==
LOC: RAD 08:36
PROVIDERS: PCP Internal Medicine; Visit Provider Orthopaedic Surgery
DX: M19.012 Primary osteoarthritis, left shoulder (principal); M75.32 Calcific tendinitis of left shoulder
CPT/HCPCS: 73200

== ENCOUNTER 2021-12-23 14:50 | Observation (INO) | payer MEDICARE, SELFPAY ==
--- NOTE | 2021-12-15 11:16 | ECG_ITS ---
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 Measurements Intervals [place] Rate: 66 P: 53 VA: 124 QRS: 27 QRSD: 78 T: 73 QT: 391 QTc: 412 Interpretive Statements SINUS RHYTHM MODERATE ST DEPRESSION [0.05+ mV ST DEPRESSION] Compared to ECG 10/11/2019 11:45:26 No significant changes Electronically Signed On 12-15-2021 17:59:30 CDT by Manny Alvarez M.D. [id number]
[2021-12-15 11:27] VITALS: BMI 25.4
[2021-12-15 12:01] LABS: Anion Gap 16.9 (5-19); Blood Urea Nitrogen 27 mg/dL (8-23); Calcium 9.2 mg/dL (8.5-10.5); Carbon Dioxide 24 mmol/L (22-29); Chloride 102 mmol/L (98-107); Glucose 147 mg/dL (65-115); Osmolality Calculated 296 mOsm/kg (285-295); Potassium 3.9 mmol/L (3.5-5.1); Sodium 139 mmol/L (136-145)
--- NOTE | 2021-12-15 13:46 | ANES.PREANE2 ---
Pre-Anesthetic Assessment Height/Weight: Height 1.55 m Weight 61.235 kg Preop Diagnosis: DJD Right Knee Operation Date: 12/20/21 15:50 Proposed Procedures p left Total Reverse Shoulder Arthroplasty 26194?M19.012(Left) - Dakota Hernandez MD Familial anesthetic complications: None Was Beta Edu taken within 24 hours: Yes Was Clonidine taken within 24 hours: N/A Social No alcohol and No tobacco Exam alert, oriented x 3, clear to auscultation bilaterally and regular rate & rhythm Airway Submandibular: within normal limits Cervical ROM: within normal limits Mallampati: Class II Dentition: false Pulmonary Asthma CV/HEM Hypertension Metabolic Diabetes Mellitus, Hyperlipidemia and Thyroid Disease Musc/skel Lower Back Pain and Osteoarthritis/DJD Anesthetic Plan ASA status: 3 Anesthesia: General and Regional (specify below) (Interscalene nerve blk) Medications/Allergies Home Medications Medication Instructions Recorded Confirmed Last Taken Type acetaminophen 500 mg tablet 1,000 mg PO Q6H PRN tab 09/23/19 12/15/21 10/27/19 History (Tylenol Extra Strength) atorvastatin 20 mg tablet 20 mg PO DAILY 09/23/19 12/15/21 10/27/19 History calcium carbonate 600 mg calcium 600 mg PO DAILY 09/23/19 12/15/21 10/27/19 History (1,500 mg) tablet (Calcium) metformin 500 mg tablet 500 mg PO BID 09/23/19 12/15/21 10/27/19 History metoprolol tartrate 50 mg tablet 50 mg PO BID 09/23/19 12/15/21 10/28/19 06:00 History montelukast 10 mg tablet 10 mg PO DAILY 09/23/19 12/15/21 10/28/19 06:00 History multivitamin (Daily Multi-Vitamin) 1 tab PO DAILY 09/23/19 12/15/21 10/27/19 History sennosides 8.6 mg capsule (senna) 8.6 mg PO BID PRN 09/23/19 12/15/21 10/27/19 History budesonide-formoterol HFA 160 2 puff INHALATION BID 03/04/21 12/15/21 Unknown History mcg-4.5 mcg/actuation aerosol inhaler (Symbicort) levothyroxine 75 mcg capsule 88 mcg PO DAILY cap 04/05/21 12/15/21 Unknown History losartan 25 mg tablet 100 mg PO DAILY tab 04/05/21 12/15/21 Unknown History anastrozole 1 mg tablet See Rx Instructions .ROUTE 12/15/21 12/15/21 Unknown Rx .COMPLEX #90 tab cetirizine 10 mg tablet 10 mg PO DAILY PRN 12/15/21 12/15/21 Unknown History Allergies Allergy/AdvReac Type Severity Reaction Status Date / Time No Known Allergies Allergy Verified 11/03/21 11:01 [facility] Anesthesia Medical History Chronic low back pain Diabetes Encounter for long-term (current) use of NSAIDs Encounter for opiate analgesic use agreement Social History Smoking and tobacco status: former smoker Second hand smoke exposure: No Alcohol intake: never History of recent travel: No Data Anesthesia : 12/15/21 11:35 BMP 12/15/21 11:35 Sodium 139 Potassium 3.9 Chloride 102 Carbon Dioxide 24 BUN 27 H Creatinine 1.0 H Glucose 147 H Calcium 9.2 Cardiac Studies: No Data to Display
[2021-12-23] VITALS (17 sets, daily range): BP systolic 106–179; BP diastolic 67–90; PULSE 58–78; RESP 12–20; TEMP 36.3–36.8; O2SAT 90–100; BMI 25.4
[2021-12-23 10:40] LABS: Glucose Point of Care 98 mg/dL (70-110)
[2021-12-23] MEDS: sodium chloride 0.9% 1,000 ML 30 ML IV (10:41)
[2021-12-23] MEDS: acetaminophen 500 mg Tablet 1000 MG PO ×3 (10:42→23:59)
[2021-12-23] MEDS: CELEcoxib 200 mg Capsule 400 MG PO (10:43)
[2021-12-23] MEDS: oxyCODONE 20 mg ER (12 HR) Tablet PO (10:43)
[2021-12-23] MEDS: gabapentin 300 mg Capsule PO (10:44)
[2021-12-23] MEDS: fentaNYL 50 mcg/mL INJ 2mL IVP (12:01)
--- NOTE | 2021-12-23 12:46 | P.ANESUD_ITS ---
Pre-Anesthetic Update Pre-Anesthetic Assessment: Date of Surgery/Procedure: 12/23/21 Preop Cecily gnosis: Osteoarthritis Left shoulder Proposed Procedure: Operation Date: 12/23/21 12:05 Proposed Procedures p left Total Reverse Shoulder Arthroplasty 55501?M19.012(Left) - Dakota Hernandez MD Any changes to Pre-Anesthetic Assessment?: No Last Intake: Intake Last Liquid Date 12/22/21 Last Liquid Time 23:00 Last Solid Date 12/22/21 Last Solid Time 23:00 Vitals: Temperature 97.9 F 12/23/21 10:28 Temperature Source Temporal Artery S can 12/23/21 10:28 Pulse Rate 77 12/23/21 10:28 Respiratory Rate 18 12/23/21 10:43 Respiratory Effort Non-Labored 12/23/21 10:43 Respiratory Depth Normal 12/23/21 10:43 Respiratory Patter n 12/23/21 10:43 Blood Pressure 153/90 12/23/21 10:28 Blood Pressure Leda n 111 12/23/21 10:28 Pulse Oximetry 94 12/23/21 10:28 Oxygen Delivery Me thod 12/23/21 10:28 Exam: Pre-Anes Outpt Exam: alert, oriented x 3, clear to auscultation bilaterally and regular rate & rhythm Cardiac Studies: 2 No Data to Display Anesthesia Procedures Nerve Block: Nerve Block 1: Main Anesthesia: general anesthesia Time Out Performed: Yes Consent: requested by attending/covering physician, from patient, risks and benefits reviewed and patient agrees to proceed Nerve block location: interscalene (left) Anesthesia monitors applied: pulse oximetry, EKG, BP cuff and oxygen Nerve block position: semi sitting Anesthetic Used: ropivicaine 0.5% Amount of anesthesia used (mL): 20 Ultrasound used to: recognize landmarks and visualize and ID brachial plexus Nerve Stimulator Used?: No Interscalene/Femoral BLK: 2 stimuplex 22 g needle used for position and inplane approach Injection: neg aspiration of heme Patient Tolerated Procedure: well Complications: none
[2021-12-23] MEDS: ceFAZolin 2,000 MG in sodium chloride 0.9% (plus) 50 ML 100 MG IV ×2 (12:58→21:56)
--- NOTE | 2021-12-23 13:03 | P.HP_ITS ---
Same Day Surgery H&P Indication for Procedure/HPI DATE OF PROCEDURE: December 23, 2021 CHIEF COMPLAINT/INDICATIONFOR SURGICAL PROCEDURE: Osteoarthritis left shoulder here for shoulder arthroplasty PREOP DIAGNOSIS: Osteoarthritis Left shoulder PLANNED PROCEDURE: Operation Date: 12/23/21 12:05 Proposed Procedures p left Total Reverse Shoulder Arthroplasty 44957?M19.012(Left) - Dakota Hernandez MD Cheyenne is a 81-year-old female with chronic progressive left shoulder pain and loss of functional use due to osteoarthritis. She has been treated with anti- inflammatories and injections without improvement. She is here for elective reverse total shoulder arthroplasty Medications/Allergies* Home Medications Medication Instructions Recorded Confirmed Type acetaminophen 500 mg tablet 1,000 mg PO Q6H PRN tab 09/23/19 12/23/21 History (Tylenol Extra Strength) atorvastatin 20 mg tablet 20 mg PO DAILY 09/23/19 12/23/21 History calcium carbonate 600 mg calcium 600 mg PO DAILY 09/23/19 12/23/21 History (1,500 mg) tablet (Calcium) metformin 500 mg tablet 500 mg PO BID 09/23/19 12/23/21 History metoprolol tartrate 50 mg tablet 50 mg PO BID 09/23/19 12/23/21 History montelukast 10 mg tablet 10 mg PO DAILY 09/23/19 12/23/21 History multivitamin (Daily Multi-Vitamin) 1 tab PO DAILY 09/23/19 12/23/21 History sennosides 8.6 mg capsule (senna) 8.6 mg PO BID PRN 09/23/19 12/23/21 History budesonide-formoterol HFA 160 2 puff INHALATION BID 03/04/21 12/23/21 History mcg-4.5 mcg/actuation aerosol inhaler (Symbicort) levothyroxine 75 mcg capsule 88 mcg PO DAILY cap 04/05/21 12/23/21 History losartan 25 mg tablet 100 mg PO DAILY tab 04/05/21 12/23/21 History cetirizine 10 mg tablet 10 mg PO DAILY PRN 12/15/21 12/23/21 History anastrozole 1 mg tablet (Arimidex) See Rx Instructions .ROUTE .COMPLEX 12/23/21 12/23/21 History Allergies/Adverse Reactions Allergy/AdvReac Type Severity Reaction Status Date / Time No Known Allergies Allergy Verified 12/23/21 10:20 Current Medications: Generic Name Dose Route Start Last Admin Trade Name Alfonzo PRN Reason Stop Dose Admin Fentanyl 50 mcg 12/23/21 10:24 12/23/21 12:01 Fentanyl 50 Mcg/Ml Inj 2ml IVP 50 mcg Q10M PRN Administration Preop Pain Sodium Chloride 1,000 mls @ 30 mls/hr 12/23/21 10:30 12/23/21 10:41 Sodium Chloride 0.9% IV 12/24/21 10:29 30 mls/hr .Q24H ELIAN Administration Pertinent History/Comorbid Conditions* Medical History (Updated 04/05/21 @ 11:11 by Dakota Hernandez MD) Chronic low back pain Diabetes Encounter for long-term (current) use of NSAIDs Encounter for opiate analgesic use agreement Social History Smoking and tobacco status: former smoker Second hand smoke exposure: No Alcohol intake: never History of recent travel: No Pertinent Exam Findings alert, oriented x 3, clear to auscultation bilaterally, regular rate & rhythm and procedure specific exam findings Cheyenne is left shoulder can be flexed to 90 degrees and externally rotated 30 degrees. She can abduct her arm away from her body but has diminished strength of the pain. She has better external rotator strength. 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 She has significant motion loss. I think the most reliable option would be a reverse total shoulder. I again discussed the procedure with her and her family. Agree to proceed. Coding Level of Care Code Acute [facility] S[facility] for Giovanni Cabello
[2021-12-23] MEDS: tranexamic acid 1,000 mg/10mL SDV 1000 MG IV (13:15)
[2021-12-23] MEDS: tobramycin 40 mg/mL SDV 2mL 160 MG IRRIGATION (13:57)
--- NOTE | 2021-12-23 14:56 | PM.OP ---
Operative Report Date of procedure: December 23, 2021 Pre-op diagnosis: Preop Diagnosis Osteoarthritis Left shoulder Post-op diagnosis: same Post-op findings: Osteoarthritis left shoulder Procedure done: Right reverse total shoulder Implants: 1) Tornier Aequalis Ascend Flex to be mm stem 2) Flex Shoulder System reversed tray +0mm 3) Flex Shoulder System 36 mm +6 mm reversed insert 4) Aequalis PerForm Reversed 36 mm standard glenosphere 5) Perform Reversed [place] [id number] mm glenoid baseplate Pathology: none sent Surgeon: Dakota Hernandez Anesthesia: General and Nerve Block (Interscalene block) Estimated blood loss (mL): 200 Findings: The patient had severe degenerative changes of the glenohumeral joint with peripheral humeral head osteophytes and flattening of the head. Of the rotator cuff is intact. The biceps tendon was not visible consistent with a prior rupture Brief History: Cheyenne had left shoulder pain for years with progressive pain and functional loss. She failed a program of anti-inflammatories and corticosteroid injections. She had significant motion loss. Reverse total shoulder was performed to minimize the risk of future cuff failure and for more reliable motion improvements. Procedure: An intrascalene blocks provided the holding area. The patient was taken to the operating room and given a general anesthesia. They were given 2 g of Ancef. A Cruz stand was covered and use to support support the arm A timeout was performed. A 10 cm long incision was made over the deltopectoral groove and dissection carried out with a scalpel blade to the deltopectoral interval. The cephalic vein was identified and retracted laterally. Digital dissection was accomplished to free lesions beneath the deltoid and beneath the coracobrachialis musculature. An Kirill medium tissue protector was used to retract the pectoralis major and the deltoid. [The biceps was released and the proximal bicipital groove and secured with 2 Ethibond sutures to the pectoralis muscle]. The subscapularis and a capsule was then peeled off of the lesser tuberosity and fixed with 3 tape sutures in a locking Krak?w fashion from superior to inferior. Capsular release was accomplished across the inferior capsule from the glenoid. Utilizing electrocautery the glenoid was exposed circumferentially. The centering guide was used to place the central guidepin at a 10 degrees inferior slope in accordance with our preoperative plan to bring the glenoid down to neutral tilt. Glenoid reaming entailedremoving slightly more inferior bone. A 25 mm Aequalis PerForm baseplate was secured with a 35mm cnetral crew, a superior locking 22 mm screw, an inferior locking 26 mm screw. A standard 36 mm Aequalis perFORM ReversedGlenosphere was then placed. Attention was then focused on the humerus. Sequential and broaching of the canal was accomplished up to a size 2B stem with satisfactory stability.. A trial reduction with the 36 mm +6 mm mm reversed insert provided adequate stability. The final humeral stem, reverse tray and insert were press-fit into place and the shoulder reduced with a stable reduction. 4 drill holes were then made in the bicipital groove. Sutures through the subscapularis were then passed through tunnels at the most superior suture through the most proximal hole. The second pair of sutures through the second hole, the third pair of sutures to the third hole in the fourth suture through the fourth hole. They were tied over a small [place] 4-hole mini plate. The wound was irrigated with a solution of 100 cc of saline with 1 g of tranexamic acid and 80 mg of gentamicin. The deltopectoral interval was closed with 0 Vicryl. The subcutaneous tissues were closed with 2-0 Stratafix. The skin was closed with a running 4-0 Stratafix. Sterile dressings were applied. The patient was placed in a sling, extubated and taken to recovery room in stable condition.
--- NOTE | 2021-12-23 15:23 | XRR_ITS ---
PROCEDURE INFORMATION: Exam: XR Left Shoulder Exam date and time: 12/23/2021 3:30 PM Age: 81 years old Clinical indication: Device placement; Other: Status post reverse total shoulder; Prior surgery; Surgery date: Post-operative (0-2 days) TECHNIQUE: Imaging protocol: Radiologic exam of the Left shoulder. Views: 2 or more views. COMPARISON: CT shoulder LT wo con* [id number] 12/16/2021 8:44 AM FINDINGS: Bones/joints: Status post recent reversed shoulder prosthesis placement in good alignment. Regional soft tissue swelling and air is noted consistent with postop status. Osteopenia. No acute fracture or dislocation. The AC joint is obscured by external metallic object. Lungs: It should also be noted that recent shoulder CT exam demonstrated 5 mm noncalcified left upper lobe lung nodule. Additional assessment may be obtained if clinically indicated. Heart/Mediastinum: Somewhat prominent cardiac silhouette and vascularity which may be related to poor lung expansion. However CHF should be excluded clinically. Correlation with chest radiograph with upright positioning and good inspiration may be obtained if clinically indicated. Soft tissues: See Bones/joints finding. Other findings: Two views postop submitted. XR/XR shoulder LT min 2V* [id number] IMPRESSION: Postop reverse shoulder prosthesis placement in good alignment. Other findings as above.
--- NOTE | 2021-12-23 15:44 | ANE.PACU2 ---
Inpatient post-anesthesia follow up: Airway intact: Yes Vital signs: Temperature 97.6 F Pulse Rate 72 Respiratory Rate 18 Blood Pressure 155/84 Pulse Oximetry 97 Oxygen Delivery Me thod Room Air Oxygen Flow Rate 8 Fraction of Inspir ed Oxygen Hydration adequate: Yes Nausea and vomiting: No Pain level: 1 Mental status: Baseline
--- NOTE | 2021-12-23 15:44 | SUR.PHASEI ---
1523 PT TO PACU 5 PT SLEEPS WITH NO DISTRESS , GOOD RESP EFFORT MONITOR SR NO ECTOPY NOTED IV TO RT WRIST #20 WITH 175ML NS UP AT KVO RATE PER GRAVITY, LT SHOULDER DRESSING D/I FIRST ICE TO SITE, SLING INPLACE DISTA LT FINGERS PINK WARM WITH CAP REFILL LESS THAN 3 SECONDS, ID BRACELET TO RT WRIST , PT ID'D WITH 2 IDENTIFIERS.
--- NOTE | 2021-12-23 16:00 | SUR.PHASEI ---
REPORT CALLED TO FLOOR PT FAMILY IN TO SEE PT THEN HOME,PT TO FLOOR PER CART WITH RN, LT SHOULDER DRESSING D/I AND UNCHANGED.
[2021-12-23] MEDS: sennosides 8.6 mg Tablet PO (17:25)
[2021-12-23] MEDS: CELEcoxib 200 mg Capsule PO (17:25)
[2021-12-23] MEDS: sodium chloride 0.9% 1,000 ML 60 ML IV (17:26)
[2021-12-23 20:53] LABS: Glucose Point of Care 158 mg/dL (70-110)
--- NOTE | 2021-12-23 20:56 | PC.NURSE ---
Received telephone order from Dr Hernandez to begin patient on medium insulin sliding scale actid and at bedtime. Rbvo.
[2021-12-23 21:40] LABS: Anion Gap 13.6 (5-19); Blood Urea Nitrogen 21 mg/dL (8-23); Calcium 8.3 mg/dL (8.5-10.5); Carbon Dioxide 25 mmol/L (22-29); Chloride 108 mmol/L (98-107); Glucose 179 mg/dL (65-115); Osmolality Calculated 301 mOsm/kg (285-295); Potassium 4.6 mmol/L (3.5-5.1); Sodium 142 mmol/L (136-145)
[2021-12-23] MEDS: insulin lispro 100 unit/1 mL SUBCUT (21:56)
[2021-12-23] MEDS: oxyCODONE 5 mg IR Tab/Cap PO (23:59)
[2021-12-24] VITALS: BP 98/65; PULSE 67; RESP 16; TEMP 36.8; O2SAT 93
[2021-12-24 04:00] VITALS: BP 102/66; PULSE 58; RESP 17; TEMP 36.7; O2SAT 96
[2021-12-24] MEDS: CELEcoxib 200 mg Capsule PO (04:34)
[2021-12-24] MEDS: ceFAZolin 2,000 MG in sodium chloride 0.9% (plus) 50 ML 100 MG IV (04:35)
[2021-12-24 06:19] VITALS: RESP 17; O2SAT 96
[2021-12-24] MEDS: oxyCODONE 5 mg IR Tab/Cap PO ×2 (06:19→10:24)
[2021-12-24 06:22] LABS: Glucose Point of Care 129 mg/dL (70-110)
[2021-12-24 07:47] VITALS: BP 124/80; PULSE 61; RESP 16; TEMP 36.5; O2SAT 98
[2021-12-24 09:22] VITALS: BP 124/80
[2021-12-24] MEDS: losartan 50 mg Tablet 100 MG PO (09:22)
[2021-12-24] MEDS: montelukast sodium 10 mg Tablet PO (09:23)
[2021-12-24] MEDS: acetaminophen 500 mg Tablet 1000 MG PO (09:23)
[2021-12-24] MEDS: aspirin 325 mg EC Tablet PO (09:23)
[2021-12-24] MEDS: atorvastatin 40 mg Tablet 20 MG PO (09:24)
[2021-12-24] MEDS: levothyroxine 88 mcg Tablet PO (09:24)
[2021-12-24 10:24] VITALS: RESP 16
--- NOTE | 2021-12-24 11:19 | PM.DCS ---
Discharge Providers Date of Admission: 12/23/21 14:50 Date of Discharge: December 24, 2021 Attending Provider at Admission: Dakota Hernandez MD Attending Provider at Discharge: Dakota Hernandez MD Primary Care Provider: Balaji Angulo MD Diagnoses at Discharge Discharge Diagnosis (1) Status post replacement of left shoulder joint: Status: Acute (2) Osteoarthritis of left shoulder: Status: Resolved (3) Diabetes: Status: Acute Hospital Course Hospital Course The patient tolerated surgery well. They remained hemodynamically stable. They was begun on aspirin and sequential compression dressing for DVT prophylaxis. The patient was mobilized with therapy beginning the day of surgery and by the first postoperative day independent with the walker. As the pain was adequately controlled and they were fully mobile they were discharged home. Physical Exam Narrative: On the day of discharge the patient's dressing was clean and dry. The patient's would fire their deltoid and his biceps. No distal neurovascular deficits were noted. Discharge Data Studies Completed and Pending Completed Studies During Hospitalization Category Date Time Status XR shoulder LT min 2V* [id number] Routine Exams 12/23/21 15:23 Completed Radiology Impressions Shoulder X-Ray 12/23/21 15:23 IMPRESSION: Postop reverse shoulder prosthesis placement in good alignment. Other findings as above. Laboratory Results Sodium 142 mmol/L (136-145) 12/23/21 20:52 Potassium 4.6 mmol/L (3.5-5.1) 12/23/21 20:52 Chloride 108 mmol/L (98-107) H 12/23/21 20:52 Carbon Dioxide 25 mmol/L (22-29) 12/23/21 20:52 Anion Gap 13.6 (5-19) 12/23/21 20:52 BUN 21 mg/dL (8-23) 12/23/21 20:52 Creatinine 0.9 mg/dL (0.5-0.9) 12/23/21 20:52 GFR Calculation Not Reportable 12/23/21 20:52 Glucose 179 mg/dL (65-115) H 12/23/21 20:52 POC Glucose 129 mg/dL (70-110) H 12/24/21 06:15 Calculated Osmolality 301 mOsm/kg (285-295) H 12/23/21 20:52 Calcium 8.3 mg/dL (8.5-10.5) L 12/23/21 20:52 Vitals Last Vital Signs Temp 97.7 F 12/24/21 07:47 Pulse 61 12/24/21 07:47 Resp 16 12/24/21 10:24 BP 124/80 12/24/21 09:22 Pulse Ox 98 12/24/21 07:47 Discharge Plan Discharge Patient Disposition: Home Condition: Stable Prescriptions: New celecoxib 200 mg Capsule 200 mg PO Q12H 14 Days Qty: 28 0RF aspirin 325 mg Tablet,Delayed Release (Dr/Ec) 325 mg PO DAILY 30 Days Qty: 30 0RF oxycodone 5 mg Tablet 5 mg PO Q4H PRN (Reason: Moderate Pain) 7 Days Qty: 30 0RF Continued acetaminophen [Tylenol Extra Strength] 500 mg tablet 1,000 mg PO Q6H PRN (Reason: Pain) 0RF atorvastatin 20 mg tablet 20 mg PO DAILY 0RF calcium carbonate [Calcium 600] 600 mg calcium (1,500 mg) tablet 600 mg PO DAILY 0RF metformin 500 mg tablet 500 mg PO BID 0RF metoprolol tartrate 50 mg tablet 50 mg PO BID 0RF montelukast 10 mg tablet 10 mg PO DAILY 0RF multivitamin [Daily Multi-Vitamin] Tablet 1 tab PO DAILY 0RF senna 8.6 mg capsule 8.6 mg PO BID PRN (Reason: Constipation) 0RF losartan 25 mg tablet 100 mg PO DAILY 0RF levothyroxine 75 mcg capsule 88 mcg PO DAILY 0RF budesonide-formoterol [Symbicort] 160-4.5 mcg/actuation HFA aerosol inhaler 2 puff inhalation BID 0RF cetirizine 10 mg tablet 10 mg PO DAILY PRN (Reason: Allergy Symptoms) 0RF Arimidex 1 mg tablet See Rx Instructions .ROUTE .COMPLEX 0RF Rx Instructions: Take 1 tablet by mouth once daily Discharge Orders: Discharge Order (Routine); Ordered 12/24/21 Ordered By: Dakota Hernandez Referrals: Oleg Hagen FNP [Physician [facility]] - 01/07/22 9:30 am Discharge Diet: Advance as tolerated Discharge Activity: Limit activity as instructed Patient Instructions: Oxycodone/Acetaminophen (By mouth), Aspirin (By mouth), Celecoxib (By mouth), Shoulder Arthroplasty (GEN), Opioid Safety Activity Restrictions/Additional Instructions: Okay to shower. No soaking incision in tub Apply FirstIce up to 20 min/hr for pain and swelling Take Celebrex twice a day for the next 15 days for pain , discontinue other anti-inflammatories Take Tylenol 500mg (up to 2 tabs) 3 times a day for mild pain take oxycodone for breakthrough pain. Exercises per Occupational Therapy IF HAVE ANY PROBLEMS OR QUESTIONS CALL [facility] REPA[facility] AT AND ASK TO HAVE DR. SITA ACOSTA. Discharge Attestations Time Spent in Discharge Care*: other Quality Metrics Clinical Quality Measures [ No reported AMI, CVA or VTE this stay] Coding Level of Care Code Acute [facility] [place] note Diagnoses Status post replacement of left shoulder joint Z96.612 Osteoarthritis of left shoulder M19.012 Diabetes E11.9
== END 2021-12-24 10:20 | disposition home or self-care (01) ==
LOC: MEDSURG 14:52
PROVIDERS: Anesthesiology; Admitting Provider Orthopaedic Surgery; PCP Internal Medicine; Visit Provider Orthopaedic Surgery
PROC: (CPT 23472; principal; 2021-12-23 12:05)
DX: M19.012 Primary osteoarthritis, left shoulder (principal); I10 Essential (primary) hypertension; E11.9 Type 2 diabetes mellitus without complications; E78.5 Hyperlipidemia, unspecified; Z79.84 Long term (current) use of oral hypoglycemic drugs; Z87.891 Personal history of nicotine dependence
CPT/HCPCS: 23472; 36415; 36416; 73030; 80048; 82962; 93005; 96372; 97161; 97165; C1713; C1776; G0378; J1100; J1815; J2405; J2704; J2710; J2795; J3010; J3260; J3490; J7030

== ENCOUNTER → 2022-01-06 08:51 | Outpatient (BNVA) | payer MEDICARE, SELFPAY | PROVIDERS: PCP Internal Medicine; Visit Provider Nurse Practitioner Family | DX: Z96.612 Presence of left artificial shoulder joint (principal) | CPT/HCPCS: 99024 ==

== ENCOUNTER → 2022-02-03 09:49 | Outpatient (BNVA) | payer MEDICARE, SELFPAY | PROVIDERS: PCP Internal Medicine; Visit Provider Nurse Practitioner Family | DX: R06.02 Shortness of breath (principal); R07.89 Other chest pain; E11.9 Type 2 diabetes mellitus without complications; E78.5 Hyperlipidemia, unspecified; E05.90 Thyrotoxicosis, unspecified without thyrotoxic crisis or storm; Z87.891 Personal history of nicotine dependence; Z96.612 Presence of left artificial shoulder joint; Z79.84 Long term (current) use of oral hypoglycemic drugs; I11.9 Hypertensive heart disease without heart failure | CPT/HCPCS: 73030; 99024; 99204 ==

== ENCOUNTER 2022-02-08 06:00 | Outpatient (RCR) | payer MEDICARE, SELFPAY | END 2022-02-09 23:59 | disposition home or self-care (01) | LOC: SPT 06:00 | PROVIDERS: PCP Internal Medicine; Visit Provider Nurse Practitioner Family | DX: Z96.612 Presence of left artificial shoulder joint (principal) | CPT/HCPCS: 97110; 97161 ==

== ENCOUNTER 2022-02-09 13:49 | Oncology outpatient (recurring) (ONCR) | payer MEDICARE, SELFPAY | END 2022-02-09 23:59 | disposition home or self-care (01) | PROVIDERS: PCP Internal Medicine; Visit Provider Internal Medicine Hematology & Oncology | DX: D05.12 Intraductal carcinoma in situ of left breast (principal); Z17.1 Estrogen receptor negative status [ER-]; Z79.818 Long term (current) use of other agents affecting estrogen receptors and estrogen levels; Z79.899 Other long term (current) drug therapy; Z87.891 Personal history of nicotine dependence | CPT/HCPCS: 99214 ==

== ENCOUNTER 2022-03-07 09:44 | Outpatient (CLI) | payer MEDICARE, SELFPAY ==
--- NOTE | 2022-03-07 10:00 | CT_ITS ---
WS: [id number] CT CHEST TECHNIQUE: Contrast enhanced CT of the chest with coronal and sagittal reformatted images. CLINICAL INFORMATION: LEFT UPPER LOBE NODULE COMPARISON: CT shoulder December 16, 2021 DLP: 577.[address] scans at [facility] use at least one of these dose optimization techniques: automated e xposure control; mA and/or kV adjustment per patient size (includes targeted exams where dose is matc hed to clinical indication); or iterative reconstruction. FINDINGS: Stable noncalcified nodule LEFT upper lobe measuring 5 mm. This is unchanged since December 16, 2021. Add itional suspicious opacity subpleural RIGHT upper lobe anteriorly measuring 2.0 x 1.1 x 1.2 cm AP by transverse by craniocaudal. Recommend further evaluation with PET/CT. This lesion is slightly spicul ated and has a suspicious appearance. Calcified granulomas. Noncalcified nodule RIGHT middle lobe anteriorly measuring 4 to 5 mm. Hazy atel ectasis in the lung bases. A few chronic appearing hazy opacities in the LEFT upper lobe anteriorly l ikely inflammatory or fibrosis. Slight prominent ascending thoracic aorta measuring 3.1 CM. Normal descending thoracic aorta. No mediastinal or hilar lymphadenopathy. No axillary lymphadenopathy. Moderate esophageal hiatal hernia. Splenic granulomas. LEFT adrenal gland is normal. Thoracolumbar sc oliosis. CT/CT chest w con* [id number] IMPRESSION: 1. Stable noncalcified nodule LEFT upper lobe measuring 5 mm. Recommend 12 mon th follow-up. 2. Suspicious slightly spiculated subpleural opacity RIGHT upper lobe anterior ly at the lung apex measuring 2.0 x 1.1 x 1.2 cm AP by transverse by craniocaud al. Recommend further evaluation with PET/CT. Neoplasm is not excluded. 3. 5 mm noncalcified RIGHT middle lobe pulmonary nodule. Recommend 12 month fo llow-up. 4. Calcified granulomas. 5. Thoracolumbar scoliosis. 6. Moderate esophageal hiatal hernia.
[2022-03-07 11:11] LABS: Blood Urea Nitrogen 22 mg/dL (8-23)
[2022-03-07] MEDS: iohexol 350 mg/mL 100 mL Btl IV (11:14)
== END 2022-03-07 09:45 | disposition home or self-care (01) ==
PROVIDERS: Radiology Neuroradiology; PCP Internal Medicine; Visit Provider Internal Medicine
DX: R91.1 Solitary pulmonary nodule (principal); M41.85 Other forms of scoliosis, thoracolumbar region; L92.9 Granulomatous disorder of the skin and subcutaneous tissue, unspecified
CPT/HCPCS: 71260; 82565; 84520

== ENCOUNTER 2022-05-23 14:49 | Outpatient (CLI) | payer MEDICARE, MEDICAID, SELFPAY ==
--- NOTE | 2022-05-23 15:00 | USCV_ITS ---
Cheyenne Pete Age: 81 Gender: F : 1940 Exam Date: 05/23/2022 15:04 Ordering Phys: Richa Terrell MD ([email or web address]) Technologist: Jimmie Flores [place] [facility] [place]: ? enlarged heart BP: 140 / 82 HR: 63 Rhythm: Sinus Technical Quality: Adequate MEASUREMENTS (Male / Female) Normal Values 2D ECHO LV Diastolic Diameter PLAX 4.4 cm 4.2 - 5.9 / 3.9 - 5.3 cm LV Systolic Diameter PLAX 2.4 cm IVS Diastolic Thickness 0.9 cm 0.6 - 1.0 / 0.6 - 0.9 cm IVS Systolic Thickness 1.6 cm LVPW Diastolic Thickness 1.0 cm 0.6 - 1.0 / 0.6 - 0.9 cm LVPW Systolic Thickness 1.6 cm LVOT Diameter 2.0 cm LV Ejection Fraction 2D Teich 77.0 % LV Ejection Fraction MOD 2C 73.3 % LV Ejection Fraction 2C AL 76.0 % LA Diameter 3.2 cm IVC Diameter 1.3 cm M-MODE Aortic Annulus Diameter 3.3 cm LA Ao Ratio MM 1.1 DOPPLER AV Peak Velocity 122.0 cm/s LVOT Peak Velocity 96.0 cm/s AV Area Cont Eq vti 2.1 cm squared AV Area Cont Eq pk 2.5 cm squared MV Area PHT 5.0 cm squared Mitral E to A Ratio 1.2 MV E' Velocity 48.0 cm/s Mitral E to MV E' Ratio 9.4 Mitral E to LV E' Lateral Ratio 8.4 Mitral E to LV E' Septal Ratio 10.7 TR Peak Velocity 251.3 cm/s TR Peak Gradient 25.3 mmHg TV Peak E Velocity 66.0 cm/s Right Atrial Pressure 3.0 mmHg Pulmonary Artery Systolic Pressu 28.3 mmHg RV Acceleration Time 0.1 s FINDINGS Left Ventricle Normal left ventricular size and systolic function, EF 72 %. No regional wall motion abnormalities. Right Ventricle The right ventricle is normal in size and function. Right Atrium The right atrium is normal in size. Left Atrium The left atrium is normal in size. Mitral Valve Mild mitral annular calcification. Mild mitral valve regurgitation. Aortic Valve Thickened aortic valve. Tricuspid Valve Trace tricuspid valve regurgitation. Pulmonic Valve No gross abnormalities noted Pericardium No pericardial effusion. Aorta Normal ascending aorta dimension. IVC The inferior vena cava appears normal. CONCLUSIONS Normal left ventricular size and systolic function, EF 72 %. No regional wall motion abnormalities. Mild mitral annular calcification. Mild mitral valve regurgitation. Thickened aortic valve. Trace tricuspid valve regurgitation. There is no pericardial effusion. There are no intracardiac masses. No similar previous studies are available for comparison Dr Richa Terrell MD FAC (Electronically Signed) Final Date: 23 May 2022 20:39 S
== END 2022-05-23 14:50 | disposition home or self-care (01) ==
PROVIDERS: PCP Internal Medicine; Visit Provider Internal Medicine Cardiovascular Disease
DX: I08.1 Rheumatic disorders of both mitral and tricuspid valves (principal); R06.09 Other forms of dyspnea
CPT/HCPCS: 93306

== ENCOUNTER → 2022-06-23 10:30 | Outpatient (BNVA) | payer MEDICARE, MEDICAID, SELFPAY | PROVIDERS: PCP Internal Medicine; Visit Provider Internal Medicine Cardiovascular Disease | DX: D05.12 Intraductal carcinoma in situ of left breast (principal); I10 Essential (primary) hypertension; E78.5 Hyperlipidemia, unspecified; E11.9 Type 2 diabetes mellitus without complications; G89.29 Other chronic pain; M54.50 Low back pain, unspecified; Z87.891 Personal history of nicotine dependence; Z79.84 Long term (current) use of oral hypoglycemic drugs | CPT/HCPCS: 99214 ==

== ENCOUNTER 2022-07-08 14:35 | Oncology outpatient (recurring) (ONCR) | payer MEDICARE, MEDICAID, SELFPAY ==
--- NOTE | 2022-07-08 14:56 | MM_ITS ---
WS: [id number] BILATERAL 3D TOMOSYNTHESIS DIGITAL DIAGNOSTIC MAMMOGRAPHY WITH CAD CLINICAL INFORMATION: Annual follow up; HX OF BREAST CA HISTORY: LEFT white nipple discharge. History of LEFT breast cancer with lumpectomy COMPARISON: 2021 weeks TECHNIQUE: Bilateral CC, MLO, and ML views. FINDINGS: The breasts are composed of heterogeneous fibroglandular density, which can limit the detection of sm all underlying mass lesions. Prior postoperative changes LEFT breast with lumpectomy and parenchymal fibrosis. Spot compression views demonstrate architectural distortion in the area of prior lumpectomy with inverted nipple. This is stable in appearance since 2019. Associated skin thickening compatible with post therapeutic changes. Dense parenchymal tissue. This is similar in appearance to 202. Ultr asound of the areola described below. RIGHT breast is unchanged in appearance. Incidental dystrophic calcification RIGHT breast. A few inci dental punctate calcifications. Vascular calcification. ULTRASOUND BREAST LEFT TECHNIQUE: Ultrasound left breast focused area of concern. CLINICAL INFORMATION: Annual follow up; HX OF BREAST CA FINDINGS: Ultrasound LEFT breast about the areola. Dense underlying parenchymal tissue. No cystic or solid lesi ons about the areola. No suspicious lesions to target for biopsy. No other significant findings. MM/[place] [id number] IMPRESSION: BI-RADS: 2-Benign FOLLOW UP: 1 Year Follow-up Recommend return to annual diagnostic mammography.
--- NOTE | 2022-07-08 16:06 | US_ITS ---
WS: [id number] BILATERAL 3D TOMOSYNTHESIS DIGITAL DIAGNOSTIC MAMMOGRAPHY WITH CAD CLINICAL INFORMATION: Annual follow up; HX OF BREAST CA HISTORY: LEFT white nipple discharge. History of LEFT breast cancer with lumpectomy COMPARISON: 2021 weeks TECHNIQUE: Bilateral CC, MLO, and ML views. FINDINGS: The breasts are composed of heterogeneous fibroglandular density, which can limit the detection of sm all underlying mass lesions. Prior postoperative changes LEFT breast with lumpectomy and parenchymal fibrosis. Spot compression views demonstrate architectural distortion in the area of prior lumpectomy with inverted nipple. This is stable in appearance since 2019. Associated skin thickening compatible with post therapeutic changes. Dense parenchymal tissue. This is similar in appearance to 202. Ultr asound of the areola described below. RIGHT breast is unchanged in appearance. Incidental dystrophic calcification RIGHT breast. A few inci dental punctate calcifications. Vascular calcification. ULTRASOUND BREAST LEFT TECHNIQUE: Ultrasound left breast focused area of concern. CLINICAL INFORMATION: Annual follow up; HX OF BREAST CA FINDINGS: Ultrasound LEFT breast about the areola. Dense underlying parenchymal tissue. No cystic or solid lesi ons about the areola. No suspicious lesions to target for biopsy. No other significant findings. US/US breast LT limited* [id number] IMPRESSION: BI-RADS: 2-Benign FOLLOW UP: 1 Year Follow-up Recommend return to annual diagnostic mammography.
== END 2022-07-12 23:59 | disposition home or self-care (01) ==
LOC: RAD 15:37 → ONCMED 07-13 12:16
PROVIDERS: PCP Internal Medicine; Visit Provider Internal Medicine Hematology & Oncology
DX: D05.12 Intraductal carcinoma in situ of left breast (principal); N64.52 Nipple discharge
CPT/HCPCS: 76642; 77062; G0279

== ENCOUNTER → 2022-07-28 11:57 | Outpatient (BNVA) | payer MEDICARE, MEDICAID, SELFPAY | PROVIDERS: PCP Internal Medicine; Visit Provider Family Medicine | DX: E11.9 Type 2 diabetes mellitus without complications (principal); I51.7 Cardiomegaly; E03.9 Hypothyroidism, unspecified; E78.5 Hyperlipidemia, unspecified; E04.2 Nontoxic multinodular goiter | CPT/HCPCS: 80053; 80061; 83036; 84443; 85025 ==

== ENCOUNTER 2022-08-12 09:06 | Oncology outpatient (recurring) (ONCR) | payer MEDICARE, MEDICAID, SELFPAY ==
[2022-08-12 09:41] LABS: Basophils % 0.5 %; Eosinophils # 0.3 10^3/uL (0.0-0.8); Eosinophils % 3.1 %; Hematocrit 44.7 % (37.0-47.0); Hemoglobin 14.1 g/dL (11.5-15.3); Lymphocytes # 2.1 10^3/uL (0.8-4.8); Mean Corpuscular HGB Conc 31.5 g/dL (30.0-36.0); Mean Corpuscular Hemoglobin 29.5 pg (28.0-34.0); Mean Corpuscular Volume 93.5 fl (81-99); Mean Platelet Volume 9.6 fL (7.4-10.4); Monocytes # 0.6 10^3/uL (0.2-0.9); Monocytes % 7.5 %; Neutrophils % 63.7 %; Nucleated Red Blood Cells % 0 %; Platelet Count 255 10^3/cmm (130-400); Red Blood Count 4.78 10^6/uL (4.1-5.3); Red Cell Distribution Width 13.6 % (12.1-15.1); White Blood Count 8.3 10^3/uL (4.0-10.0)
[2022-08-12 09:58] LABS: Albumin Level 4.1 g/dL (3.5-5.2); Alkaline Phosphatase 93 U/L (35-105); Anion Gap 15.7 (5-19); Aspartate Amino Transferase 42 U/L (0-32); Blood Urea Nitrogen 17 mg/dL (8-23); Calcium 9.8 mg/dL (8.5-10.5); Carbon Dioxide 28 mmol/L (22-29); Chloride 104 mmol/L (98-107); Globulin 2.6 g/dL (1.3-4.6); Glucose 94 mg/dL (65-115); Osmolality Calculated 297 mOsm/kg (285-295); Potassium 4.7 mmol/L (3.5-5.1); Sodium 143 mmol/L (136-145); Total Bilirubin 0.4 mg/dL (0.15-1.2); Total Protein 6.7 g/dL (6.6-8.7)
[2022-08-12 10:09] LABS: Alanine Aminotransferase 44 U/L (0-33)
== END 2022-09-09 23:59 | disposition home or self-care (01) ==
PROVIDERS: PCP Internal Medicine; Visit Provider Internal Medicine Hematology & Oncology
DX: Z08 Encounter for follow-up examination after completed treatment for malignant neoplasm (principal); Z85.3 Personal history of malignant neoplasm of breast; Z92.21 Personal history of antineoplastic chemotherapy; Z92.23 Personal history of estrogen therapy; Z87.891 Personal history of nicotine dependence
CPT/HCPCS: 36415; 80053; 85025; 99213; 99214

== ENCOUNTER → 2022-08-22 10:16 | Outpatient (BNVA) | payer MEDICARE, MEDICAID, SELFPAY | PROVIDERS: PCP Internal Medicine; Visit Provider Internal Medicine Hematology & Oncology | DX: D05.12 Intraductal carcinoma in situ of left breast (principal); Z79.899 Other long term (current) drug therapy | CPT/HCPCS: 80053; 85025 ==

== ENCOUNTER 2022-08-25 12:47 | Outpatient (CLI) | payer MEDICARE, MEDICAID, SELFPAY ==
--- NOTE | 2022-08-25 13:30 | US_ITS ---
WS: [id number] THYROID ULTRASOUND HISTORY: E04.2 - Nontoxic multinodular goiter COMPARISON: None available. Right lobe: 1.7 cm x 1.4 cm x 3.8 cm (w x ap x l). Volume: 4.7 cm3. Normal size gland. Very coarse diffuse echotexture throughout the gland. No nodules. No increased vas cularity. Left lobe: 1.0 cm x 1.7 cm x 4.0 cm (w x ap x l). Volume: 3.4 cm3. Normal size gland. Very coarse diffuse echotexture throughout the gland. No increased vascularity. Isthmus: 0.3 cm. US/US thyroid [id number] IMPRESSION: Coarse echotexture throughout the gland. May be due to resolved thyroiditis. No mass or nodule is identified.
== END 2022-08-25 12:48 | disposition home or self-care (01) ==
LOC: RAD 12:52
PROVIDERS: PCP Family Medicine; Visit Provider Family Medicine
DX: E04.2 Nontoxic multinodular goiter (principal)
CPT/HCPCS: 76536

== ENCOUNTER 2022-09-07 09:17 | Outpatient (CLI) | payer MEDICARE, MEDICAID, SELFPAY ==
[2022-09-07 09:35] VITALS: BMI 24.1
--- NOTE | 2022-09-07 09:39 | ECG_ITS ---
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 Interpretive Statements NAME OF STUDY: LEXISCAN SESTAMIBI STRESS TEST INDICATION: [Chest Pain] Procedure: At the baseline, the blood pressure was 130/81 mmHg with a heart rate of 72 bpm. The electrocardiogram showed normal sinus rhythm, normal axis with normal ST and T's. The Lexiscan was infused over a period of 20 seconds. A total of 0.4 mg of Lexiscan was infused. The stress phase was continued for a total of 5 minutes. Heart rate was at the end of stress phase was 120 bpm and a blood pressure of 139/86 mmHg. The EKG at the peak infusion revealed normal sinus rhythm with no significant ST-T wave changes. Sestamibi was injected 20 seconds after the Lexiscan infusion. Blood pressure at the end of recovery phase was 142/80 mmHg with a heart rate of 88 bpm. PVCs are seen Conclusion: 1. Normal EKG response to Lexiscan infusion 2. No Lexiscan induced chest pain or cardiac arrhythmia. 3. Normal blood pressure and heart rate response. 4. Sestamibi/sestamibi perfusion scan pending; see separate report. Electronically Signed On 09-18-2022 14:26:57 CDT by Manny Alvraez M.D. [id number]
--- NOTE | 2022-09-07 09:39 | NMCV_ITS ---
NM dominique perf SPECT r/s* [id number] Cheyenne Pete Age: 81 Gender: F : 1940 Exam Date: 09/07/2022 10:22 Ordering Phys: Saurabh Turpin MD ([email or web address]) Technologist: JIGAR Barney Exam Location: [facility] Indications: CORONARY ANGIOPLASTY STATUS; CHEST PAIN STRESS TEST Please see separate stress test report in [facility] for full findings IMAGE PROTOCOL Rest/Stress 1 Lexiscan Day Radiopharmaceutical Dose (mCi) Administration Site Administered by Rest: Tc-99m 10.6 IV JIGAR Barney Sestamibi Stress:Tc-99m 32.6 IV JIGAR Soto Sestamibi Rest: 07-Sep-2022 60 Discovery 630 Stress: 07-Sep-2022 30 Discovery 630 0.4mg Lexiscan. Supine position only as patient was unable to lay prone. SPECT RESULTS Technical Quality: Excellent Raw Data Analysis: Normal Image Corrections: No attenuation or motion correction applied Summed Stress Score: 1 Summed Rest Score: 0 Summed Difference Score: 1 PERFUSION FINDINGS A small area of slightly decreased tracer uptake was noted in the mid inferolateral region. No significant reversibility was noted with the quality perfusion imaging. However the quantitative perfusion imaging minimal ischemic burden was noted in this region FUNCTIONAL RESULTS (calculated via Gated SPECT) Stress Image LV EF (%): 73 Stress EDV (mL):62 TID: 0.97 Stress ESV (mL):17 FUNCTIONAL FINDINGS: Segmental wall motion analysis revealing no gross wall motion abnormalities IMPRESSIONS 1. Myocardial perfusion imaging revealing a small area of ischemia in the mid inferolateral region. No significant reversible defects were noted with the qualitative imaging. 2. Normal LV ejection fraction 73%. 3. LV wall motion analysis revealing no gross wall motion abnormalities. 4. Normal LV volume. In view of the inconsistency, the reliability of this finding is questionable No similar previous studies are available for comparison Dr Richa Terrell MD [facility] (Electronically Signed) Final Date: 07 September 2022 14:10 S
[2022-09-07] MEDS: regadenoson 0.4 Mg/5 ml Syringe IVP (11:15)
[2022-09-07] MEDS: aminophylline 25 mg/mL SDV 10 mL IVP (11:21)
[2022-09-07 11:28] VITALS: BP 136/84; PULSE 72
== END 2022-09-07 09:18 | disposition home or self-care (01) ==
LOC: CDL 09:21
PROVIDERS: PCP Family Medicine; Visit Provider Internal Medicine Cardiovascular Disease
DX: I25.9 Chronic ischemic heart disease, unspecified (principal)
CPT/HCPCS: 36415; 78452; 93017; 96374; 96375; A9500; J0280; J2785

== ENCOUNTER → 2022-12-28 13:54 | Outpatient (BNVA) | payer MEDICARE, MEDICAID, SELFPAY | PROVIDERS: PCP Family Medicine; Visit Provider Internal Medicine Cardiovascular Disease | DX: R06.02 Shortness of breath (principal); R07.89 Other chest pain; I10 Essential (primary) hypertension; E78.5 Hyperlipidemia, unspecified; Z87.891 Personal history of nicotine dependence | CPT/HCPCS: 99214 ==

== ENCOUNTER → 2023-04-26 11:36 | Outpatient (BNVA) | payer MEDICARE, MEDICAID, SELFPAY | PROVIDERS: PCP Family Medicine; Visit Provider Nurse Practitioner Family | DX: E11.9 Type 2 diabetes mellitus without complications (principal); G89.29 Other chronic pain; K13.0 Diseases of lips; I10 Essential (primary) hypertension | CPT/HCPCS: 80048; 83036 ==

== ENCOUNTER → 2023-06-22 08:48 | Outpatient (BNVA) | payer MEDICARE, MEDICAID, SELFPAY | PROVIDERS: PCP Nurse Practitioner Family; Referring Provider Nurse Practitioner Family; Visit Provider Anesthesiology Pain Medicine | DX: G89.29 Other chronic pain (principal); M54.50 Low back pain, unspecified | CPT/HCPCS: 99203 ==

== ENCOUNTER 2023-07-31 09:46 | Outpatient (CLI) | payer MEDICARE, SELFPAY ==
--- NOTE | 2023-07-31 10:15 | MR_ITS ---
WS: [id number] MRI LUMBAR SPINE NONCONTRAST HISTORY: M54.5 - Low back pain COMPARISON: None available. TECHNIQUE: Sagittal and axial multisequence imaging is submitted. Marked degenerative rotary scoliosis throughout the spine. The entire spine is not been included to n umber accurately from the cervical level. Advanced curvature with degenerative disc disease in the th oracic spine. There are disc and osteophyte encroachment upon the ventral cervical and thoracic cord. Moderate LEFT curvature lumbar spine. Increase in the lumbar lordosis. Severe degenerative disc disease throughout the lumbar spine. There is a small amount of marrow edema at L3, L4 and L5. No acute fracture in the lumbar spine. Conus terminates normally at L1-2 disc level. L1-L2: Bilateral facet arthritis, LEFT greater than RIGHT very slight disc bulging. Shallow LEFT fora ritesh disc protrusion. No stenosis.. L2-L3: Diffuse asymmetric disc bulging to the LEFT. Moderate ligamentum flavum and bilateral facet annamarie int arthritis. Mild central, bilateral subarticular recess and moderate bilateral foraminal stenosis. L3-L4: Marked annular disc bulging, osteophytic ridging with facet arthritis. Ligamentum flavum hyper trophy. Moderate central with severe bilateral subarticular recess and foraminal stenosis. There is d isc encroachment upon the L3 and L4 nerve roots. L4-L5: Marked annular disc bulging with severe facet and ligamentum flavum arthritis. Disc and osteop hyte causing severe central, bilateral subarticular recess and foraminal stenosis. Slightly greater f oraminal stenosis on the RIGHT. Significant encroachment upon the L4 and L5 nerve roots. L5-S1: Diffuse annular disc bulging with severe facet and ligamentum flavum hypertrophy. Severe LEFT and moderate RIGHT foraminal stenosis. Disc contacts the exiting L5 nerve roots. Bilateral renal cysts. Largest cyst within the RIGHT kidney measures 5.9 cm. Low signal mass in the f undal RIGHT uterus measures 2.7 cm consistent with a fibroid. IMPRESSION: 1. Advanced degenerative rotary scoliosis throughout the spine. 2. L3-4: Moderate central with severe bilateral subarticular recess and foraminal stenosis. 3. L4-5: Severe central, bilateral subarticular recess and foraminal stenosis with significant encroa chment upon the L4 and L5 nerve roots. 4. Severe LEFT and moderate RIGHT foraminal stenosis. Disc osteophyte contacts the exiting L5 nerve r oots. 5. L2-3: Mild central, bilateral subarticular recess and moderate foraminal stenosis. 6. Bilateral renal cysts. 7. RIGHT uterine fibroid 2.7 cm.
[2023-07-31] MEDS: gadobenate dimeglumine 20 mL vial IV (11:22)
== END 2023-07-31 09:47 | disposition home or self-care (01) ==
LOC: RAD 09:46
PROVIDERS: PCP Nurse Practitioner Family; Visit Provider Anesthesiology Pain Medicine
DX: M47.816 Spondylosis without myelopathy or radiculopathy, lumbar region (principal); M41.57 Other secondary scoliosis, lumbosacral region; G89.29 Other chronic pain; M48.07 Spinal stenosis, lumbosacral region; M25.78 Osteophyte, vertebrae
CPT/HCPCS: 72158; A9577

== ENCOUNTER 2023-08-07 11:38 | Outpatient (CLI) | payer MEDICARE, SELFPAY ==
--- NOTE | 2023-08-07 11:42 | MM_ITS ---
WS: [id number] VIEWS: MLO, CC, and ML views both breasts. 3D digital tomosynthesis is also included in this exam. Comparison made with prior exam of 11/01/2017, 05/22/2019, 05/26/2020, 07/05/2021, 07/08/2022.. Findings: Post operative architectural distortion seen in the anterior LEFT breast which is stable in appearanc e. No new suspicious finding in either breast. The breasts are heterogeneously dense which may obscur e small masses. Impression: MM/[place] [id number] BI-RADS: 2-Benign finding. FOLLOW-UP: 1 Year Follow-up This mammogram was also analyzed by the Computer Aided Detection System R2 Imag e Principle Software Engineer.
== END 2023-08-07 11:39 | disposition home or self-care (01) ==
LOC: RAD 11:38
PROVIDERS: PCP Nurse Practitioner Family; Visit Provider Nurse Practitioner Family
DX: D05.12 Intraductal carcinoma in situ of left breast (principal)
CPT/HCPCS: 77062; 99214; G0279

== ENCOUNTER → 2023-08-17 13:43 | Outpatient (BNVA) | payer MEDICARE, SELFPAY | PROVIDERS: PCP Nurse Practitioner Family; Visit Provider Anesthesiology Pain Medicine | DX: M47.816 Spondylosis without myelopathy or radiculopathy, lumbar region (principal); G89.29 Other chronic pain | CPT/HCPCS: 64493; 64494; 64495; J3490 ==

== ENCOUNTER 2023-08-18 08:47 | Oncology outpatient (recurring) (ONCR) | payer MEDICARE, SELFPAY ==
[2023-08-18 09:49] LABS: Basophils % 0.6 %; Eosinophils # 0.3 10^3/uL (0.0-0.8); Hematocrit 43.8 % (36-47); Lymphocytes # 2.2 10^3/uL (0.8-4.8); Lymphocytes % 34.6 %; Mean Corpuscular Hemoglobin 30.5 pg (27-33); Mean Corpuscular Volume 95.4 fl (85-98); Mean Platelet Volume 9.2 fL (7.4-10.4); Monocytes # 0.7 10^3/uL (0.2-0.9); Monocytes % 10.8 %; Neutrophils # 3.21 10^3/uL (1.8-7.7); Neutrophils % 49.7 %; Nucleated Red Blood Cells % 0 %; Platelet Count 215 10^3/cmm (157-399); Red Blood Count 4.59 10^6/uL (3.85-5.65); Red Cell Distribution Width 13.1 % (12.1-15.1); White Blood Count 6.47 10^3/uL (3.29-11.43)
[2023-08-18 10:09] LABS: Alanine Aminotransferase 27 U/L (0-33); Albumin Level 4.1 g/dL (3.5-5.2); Alkaline Phosphatase 81 U/L (35-105); Anion Gap 15.2 (5-19); Aspartate Amino Transferase 21 U/L (0-32); Blood Urea Nitrogen 29 mg/dL (8-23); Calcium 9.2 mg/dL (8.5-10.5); Carbon Dioxide 26 mmol/L (22-29); Chloride 105 mmol/L (98-107); Globulin 2.5 g/dL (1.3-4.6); Glucose 66 mg/dL (65-115); Osmolality Calculated 298 mOsm/kg (285-295); Potassium 4.2 mmol/L (3.5-5.1); Sodium 142 mmol/L (136-145); Total Bilirubin 0.3 mg/dL (0.15-1.2); Total Protein 6.6 g/dL (6.6-8.7)
== END 2023-09-10 23:59 | disposition home or self-care (01) ==
PROVIDERS: Nurse Practitioner Family; PCP Nurse Practitioner Family; Visit Provider Internal Medicine Hematology & Oncology
DX: Z53.9 Procedure and treatment not carried out, unspecified reason; Z08 Encounter for follow-up examination after completed treatment for malignant neoplasm; Z85.3 Personal history of malignant neoplasm of breast; Z92.21 Personal history of antineoplastic chemotherapy; Z92.23 Personal history of estrogen therapy; Z87.891 Personal history of nicotine dependence
CPT/HCPCS: 36415; 80053; 85025; 99214

== ENCOUNTER → 2023-09-11 11:58 | Outpatient (BNVA) | payer MEDICARE, SELFPAY | PROVIDERS: PCP Nurse Practitioner Family; Visit Provider Nurse Practitioner Family | DX: J30.89 Other allergic rhinitis (principal); I10 Essential (primary) hypertension; E03.9 Hypothyroidism, unspecified | CPT/HCPCS: 80061; 84443 ==

== ENCOUNTER → 2023-09-14 10:07 | Outpatient (BNVA) | payer MEDICARE, SELFPAY | PROVIDERS: PCP Nurse Practitioner Family; Visit Provider Anesthesiology Pain Medicine | DX: M25.552 Pain in left hip (principal); M54.50 Low back pain, unspecified; G89.29 Other chronic pain | CPT/HCPCS: 73502; 99214 ==

== ENCOUNTER → 2023-09-26 13:20 | Outpatient (BNVA) | payer MEDICARE, SELFPAY | PROVIDERS: PCP Nurse Practitioner Family; Visit Provider Anesthesiology Pain Medicine | DX: M47.816 Spondylosis without myelopathy or radiculopathy, lumbar region (principal); G89.29 Other chronic pain | CPT/HCPCS: 64493; 64494; 64495 ==

== ENCOUNTER → 2023-10-12 09:28 | Outpatient (BNVA) | payer MEDICARE, SELFPAY | PROVIDERS: PCP Nurse Practitioner Family; Visit Provider Anesthesiology Pain Medicine | DX: G89.29 Other chronic pain (principal); M48.061 Spinal stenosis, lumbar region without neurogenic claudication; M41.9 Scoliosis, unspecified | CPT/HCPCS: 99214 ==

== ENCOUNTER → 2024-03-19 08:58 | Outpatient (BNVA) | payer MEDICARE, SELFPAY | PROVIDERS: PCP Nurse Practitioner Family; Visit Provider Nurse Practitioner Family | DX: E55.9 Vitamin D deficiency, unspecified (principal); E03.9 Hypothyroidism, unspecified; E11.9 Type 2 diabetes mellitus without complications; I10 Essential (primary) hypertension; E78.2 Mixed hyperlipidemia | CPT/HCPCS: 80053; 80061; 82306; 83036; 84443; 85025 ==

== ENCOUNTER → 2024-04-05 08:19 | Outpatient (BNVA) | payer OTHER, MEDICARE, SELFPAY | PROVIDERS: PCP Nurse Practitioner Family; Visit Provider Nurse Practitioner Family | DX: R07.81 Pleurodynia (principal); J98.4 Other disorders of lung; J98.11 Atelectasis; Z96.612 Presence of left artificial shoulder joint; M41.84 Other forms of scoliosis, thoracic region | CPT/HCPCS: 71046 ==

== ENCOUNTER 2024-04-30 11:37 | Oncology outpatient (recurring) (ONCR) | payer MEDICARE, SELFPAY ==
--- NOTE | 2024-04-25 09:44 | MM_ITS ---
WS: [id number] LEFT 3D TOMOSYNTHESIS DIGITAL MAMMOGRAPHY WITH CAD CLINICAL INFORMATION: LT NIPPLE DISCH HISTORY: LEFT nipple discharge COMPARISON: 08/07/2023 TECHNIQUE: 3 views of the left breast were obtained. FINDINGS: The left breast is composed of heterogeneous fibroglandular density tissue, which can limit the detec tion of small underlying mass lesions. Chronic inversion LEFT nipple. Vascular calcifications. Dense parenchymal tissue with architectural distortion deep to the areola similar to previous. Ultrasound o f this area is pending ULTRASOUND BREAST LEFT TECHNIQUE: Ultrasound left breast focused area of concern. CLINICAL INFORMATION: LT NIPPLE DISCH FINDINGS: Ultrasound LEFT breast at the areola. Dense underlying parenchymal tissue. Ductal ectasia. No cystic or solid lesions. No suspicious lesions to target for biopsy. Recommend return to annual diagnostic m ammography MM/MM diag LT tomosynthesis [id number] IMPRESSION: DENSITY: The breasts are heterogeneously dense, which may obscure small masses. BI-RADS: 2 - Benign FOLLOW UP: 1 Year Follow-up Recommend return to annual diagnostic mammography.
== END 2024-05-11 23:59 | disposition home or self-care (01) ==
PROVIDERS: PCP Nurse Practitioner Family; Visit Provider Nurse Practitioner Family
DX: Z08 Encounter for follow-up examination after completed treatment for malignant neoplasm (principal); Z85.3 Personal history of malignant neoplasm of breast; Z92.21 Personal history of antineoplastic chemotherapy; Z92.23 Personal history of estrogen therapy; Z87.891 Personal history of nicotine dependence; D05.12 Intraductal carcinoma in situ of left breast; N64.59 Other signs and symptoms in breast; N64.52 Nipple discharge
CPT/HCPCS: 76642; 77061; 99214; G0279

== ENCOUNTER 2024-09-12 08:21 | Oncology outpatient (recurring) (ONCR) | payer MEDICARE, SELFPAY ==
[2024-09-12 09:05] LABS: Basophils % 0.6 %; Eosinophils # 0.4 10^3/uL (0.0-0.8); Eosinophils % 5.9 %; Hematocrit 41.5 % (36-47); Lymphocytes # 1.8 10^3/uL (0.8-4.8); Lymphocytes % 25.8 %; Mean Corpuscular HGB Conc 31.8 g/dL (30-55); Mean Corpuscular Hemoglobin 30.2 pg (27-33); Mean Platelet Volume 9.1 fL (7.4-10.4); Monocytes # 0.7 10^3/uL (0.2-0.9); Neutrophils # 4.08 10^3/uL (1.8-7.7); Neutrophils % 57.3 %; Nucleated Red Blood Cells % 0 %; Platelet Count 228 10^3/cmm (157-399); Red Blood Count 4.37 10^6/uL (3.85-5.65); Red Cell Distribution Width 13.4 % (12.1-15.1); White Blood Count 7.12 10^3/uL (3.29-11.43)
[2024-09-12 09:42] LABS: Alanine Aminotransferase 21 U/L (0-33); Albumin Level 4.1 g/dL (3.5-5.2); Alkaline Phosphatase 84 U/L (35-105); Anion Gap 13.3 (5-19); Aspartate Amino Transferase 21 U/L (0-32); Blood Urea Nitrogen 33 mg/dL (8-23); Calcium 9.9 mg/dL (8.5-10.5); Carbon Dioxide 29 mmol/L (22-29); Chloride 104 mmol/L (98-107); Globulin 2.3 g/dL (1.3-4.6); Glucose 81 mg/dL (65-115); Osmolality Calculated 300 mOsm/kg (285-295); Potassium 4.3 mmol/L (3.5-5.1); Sodium 142 mmol/L (136-145); Thyroid Stimulating Hormone 3.26 uIU/mL (0.27-4.20); Total Bilirubin 0.3 mg/dL (0.15-1.2); Total Protein 6.4 g/dL (6.6-8.7)
== END 2024-10-09 23:59 | disposition home or self-care (01) ==
PROVIDERS: Nurse Practitioner; PCP Nurse Practitioner Family; Visit Provider Nurse Practitioner Family
DX: Z08 Encounter for follow-up examination after completed treatment for malignant neoplasm (principal); Z85.3 Personal history of malignant neoplasm of breast; E78.2 Mixed hyperlipidemia; M17.11 Unilateral primary osteoarthritis, right knee; N64.59 Other signs and symptoms in breast; Z92.23 Personal history of estrogen therapy; Z92.3 Personal history of irradiation
CPT/HCPCS: 36415; 80053; 84443; 85025; 99213

== ENCOUNTER 2024-10-10 09:56 | Outpatient (CLI) | payer MEDICARE, SELFPAY ==
--- NOTE | 2024-10-10 10:30 | MM_ITS ---
WS: [id number] BILATERAL 3D TOMOSYNTHESIS DIGITAL DIAGNOSTIC MAMMOGRAPHY WITH CAD CLINICAL INFORMATION: breast cancer COMPARISON: 2023 TECHNIQUE: Bilateral CC, MLO, and ML views. FINDINGS: The breasts are composed of heterogeneous fibroglandular density, which can limit the detection of small underlying mass lesions. Vascular calcifications. Coarse and punctate calcifications RIGHT breast. Postoperative changes anterior LEFT breast with parenchymal fibrosis and architectural distortion similar to previous. No suspicious focal mass, asymmetry, calcifications, or architectural distortion. No evidence of malignancy. MM/MM diag tomosynthesis [id number] IMPRESSION: DENSITY: The breasts are heterogeneously dense, which may obscure small masses. BI-RADS: 2 - Benign FOLLOW UP: 1 Year Follow-up Recommend return to annual screening mammography.
== END 2024-10-10 09:57 | disposition home or self-care (01) ==
PROVIDERS: PCP Nurse Practitioner Family; Visit Provider Internal Medicine
DX: D05.12 Intraductal carcinoma in situ of left breast (principal); R92.333 Mammographic heterogeneous density, bilateral breasts; R92.1 Mammographic calcification found on diagnostic imaging of breast; Z98.890 Other specified postprocedural states; N64.89 Other specified disorders of breast
CPT/HCPCS: 77062; G0279

== ENCOUNTER → 2024-10-31 09:44 | Outpatient (BNVA) | payer MEDICARE, SELFPAY | PROVIDERS: PCP Nurse Practitioner Family; Visit Provider Internal Medicine Cardiovascular Disease | DX: I10 Essential (primary) hypertension (principal); R06.02 Shortness of breath; R07.89 Other chest pain; E78.2 Mixed hyperlipidemia; R55 Syncope and collapse | CPT/HCPCS: 99214 ==

== ENCOUNTER → 2024-12-16 11:58 | Outpatient (BNVA) | payer MEDICARE, SELFPAY | PROVIDERS: PCP Nurse Practitioner Family; Visit Provider Internal Medicine | DX: D05.12 Intraductal carcinoma in situ of left breast (principal) | CPT/HCPCS: 80053; 83615; 85025 ==

== ENCOUNTER → 2025-04-01 09:27 | Outpatient (BNVA) | payer MEDICARE, SELFPAY | PROVIDERS: PCP Nurse Practitioner Family; Visit Provider Nurse Practitioner Family | DX: E11.9 Type 2 diabetes mellitus without complications (principal); I10 Essential (primary) hypertension | CPT/HCPCS: 80053; 83036; 84443; 85025 ==

== ENCOUNTER → 2025-05-07 11:07 | Outpatient (BNVA) | payer MEDICARE, SELFPAY | PROVIDERS: PCP Nurse Practitioner Family; Visit Provider Nurse Practitioner Family | DX: R07.89 Other chest pain (principal); R06.02 Shortness of breath; I10 Essential (primary) hypertension; E78.5 Hyperlipidemia, unspecified; R00.2 Palpitations; Z79.82 Long term (current) use of aspirin | CPT/HCPCS: 99213 ==

== ENCOUNTER → 2025-05-12 15:28 | Outpatient (BNVA) | payer MEDICARE, SELFPAY | PROVIDERS: PCP Nurse Practitioner Family; Visit Provider Nurse Practitioner Family | DX: J06.9 Acute upper respiratory infection, unspecified (principal) | CPT/HCPCS: 87400; 87426 ==

== ENCOUNTER 2025-06-04 10:34 | Observation (INO) | payer MEDICARE, SELFPAY ==
[2025-06-04] VITALS (11 sets, daily range): BP systolic 98–131; BP diastolic 59–78; PULSE 68–101; RESP 16–20; TEMP 36.4–36.6; O2SAT 92–99
--- OUTSIDE RECORDS SUMMARY | 2025-06-04 10:39 | XMS_ITS | Encounter Summary ---
Author Organization [facility] Address [address] [place] [address] Care Team Providers Care Bsa Officer Name Role Phone Balaji Angulo MD Primary Care Provider Encounter Details Date Type Department Care Team (Late st Contact Info) Description 09/22/2008 Ancillary Orders [facility] Mobile MRI [address] [place] [id number] Balaji Angulo MD [address] [place] [address] [address] [place] [address] Social History Tobacco Use Types Packs/Day Years Used Date Smoking Tobacco: Never Assessed Comments Unknown Sex and Gender Information Value Date Recorded Sex Assigned at Not on file 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
--- OUTSIDE RECORDS SUMMARY | 2025-06-04 10:39 | XMS_ITS | Encounter Summary ---
Author Organization [facility] Address [address] [place] [address] Care Team Providers Care Dinkey Operator Slag Name Role Phone Unavailable Primary Care Provider Unavailabl e Encounter Details Date Type Department Care Team (Late st Contact Info) Description 08/08/2012 Orders Only [facility] Radiology [address] [place] [address] System, Provider Not In, [address] [place] [address] Social History Tobacco Use Types Packs/Day Years Used Date Smoking Tobacco: Never Assessed Comments Unknown Sex and Gender Information Value Date Recorded Sex Assigned at Not on file Legal Sex Female 11:03 AM CDT Gender Identity Not on file Sexual Orientation Not on file documented as of this encounter Plan of Treatment Not on file documented as of this encounter Procedures Procedure Name Priority Date/Time Associated Diagnosis Comments OUTSIDE IMAGES 08/08/2012 11:29 AM CHEMICAL TESTER documented in this encounter Results * Outside Images (08/08/2012 11:29 AM CHEMICAL TESTER) Anatomical Region Laterality Modality N/A Radiographic Charlene ging 08/08/2012 11:2 9 AM CHEMICAL TESTER Narrative 08/08/2012 11:29 AM CHEMICAL TESTER Historic images from [facility] exist and can be viewed by using the hyperlink to access [employer]: [email or web address] 3V Procedure Note System, Provider Not In - 07/03/2020 Historic images from [facility] exist and can be viewed byusing the hyperlink to access [employer] p[employer]: [email or web address] 3V us Provider Not In System MD [facility] OR DERABLES Final Result documented in this encounter Visit Diagnoses Not on filedocumented in this encounter
--- OUTSIDE RECORDS SUMMARY | 2025-06-04 10:39 | XMS_ITS | Encounter Summary ---
Author Organization [facility] Address [address] [place] [address] Care Team Providers Care Robot Technician Name Role Phone Balaji Angulo MD Primary Care Provider Encounter Details Date Type Department Care Team (Latest Contact Info) Description 06/15/2016 Ancillary Orders [facility] Centralized Scheduling [address] [place] [id number] Marni Brannon, BROOM MAN [address] [place] [address] Pain in unspecified shoulder Social History Tobacco Use Types Packs/Day Years Used Date Smoking Tobacco: Former Cigarettes 1 2.5 1 - 10/10/1974 Alcohol Use Standard Drinks/Week Comments No 0 (1 standard drink = 0.6 oz pur e alcohol) Comments No Sex and Gender Information Value Date Recorded Sex Assigned at Not on file 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
--- OUTSIDE RECORDS SUMMARY | 2025-06-04 10:39 | XMS_ITS | Encounter Summary ---
Author Organization [facility] Address [address] [place] [address] Care Team Providers Care Director Cardiovascular Name Role Phone Balaji Angulo MD Primary Care Provider Reason for Referral * Outpatient Services (Routine) - Closed Specialty Diagnoses / Procedures Referred By Bharti gomez Referred To Contact Radiology Diagnoses Other screening mammogram Procedures MAMMO DIGITAL SCREEN BILAT Balaji Angulo MD [address] [place] [address] Phone: tel: fax: [facility] [address] [facility] [address] [place] [address] Phone: tel: fax: Referral ID Status Reason Start Date Expiration Date V isits Requested Visits Authorized [id number] Closed [facility] View CTS to Schedule (SGF) 08/07/2013 09/07/2014 1 1 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 Encounter Details Date Type Department Care Team (Latest Contact Info) Description 08/07/2013 Ancillary Orders [facility] Centralized Scheduling [address] [facility] [address] [place] [address] Balaji Angulo MD [address] [facility] [address] [place] [phone] Other screening mammogram (Primary Dx) Social History Tobacco Use Types Packs/Day Years Used Date Smoking Tobacco: Former Cigarettes 1 2.5 1 - 10/10/1974 Alcohol Use Standard Drinks/Week Comments No 0 (1 standard drink = 0.6 oz pur e alcohol) Comments No Sex and Gender Information Value Date Recorded Sex Assigned at Not on file Legal Sex Female 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 Gender Identity Not on file Sexual Orientation Not on file Occupation Industry Job Start Date Job End Date Not on file Not on file Not on file Not on file Not on file Not on file Not on file Not on file documented as of this encounter Plan of Treatment Not on file documented as of this encounter Results * MAMMO DIGITAL SCREEN BILAT (08/15/2013 9:32 AM RETU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) Anatomical Region Laterality Modality Breast Bilateral Mammography Narrative 08/21/2013 8:44 AM CDT Bilateral Mammogram Reason for Exam: Screening Comparison: Compared to: 08/15/2012 MAMMO DIGITAL SCREEN BILAT, 05/11/2010 MAMMO DIGITIZED STUDY, 03/19/2009 MAMMO DIGITIZED STUDY, 02/27/2008 MAMMO DIGITIZED STUDY Findings: Bilateral CC and MLO views were obtained. This examination was reviewed with the aid of a computer-aided detection system(CAD). The breast tissue is dense. No significant new findings since the prior mammogram(s). Procedure Note Lise Wang MD - 08/21/2013 Bilateral Mammogram Reason for Exam: Screening Comparison: Compared to: 08/15/2012 MAMMO DIGITAL SCREEN BILAT, 05/11/2010MAMMO DIGITIZED STUDY, 03/19/2009 MAMMO DIGITIZED STUDY, 02/27/2008 MAMMODIGITIZED STUDY Findings: Bilateral CC and MLO views were obtained. This examination was reviewed with the aid of a computer-aided detectionsystem(CAD). The breast tissue is dense. No significant new findings since the prior mammogram(s). Balaji Angulo MD MAMMO ORDERABLES Final Result documented in this encounter Visit Diagnoses Diagnosis Other screening mammogram- Primary Other screening mammogram documented in this encounter Care Teams Director Cardiovascular Relationship Specialty Start Date End Date Balaji Angulo MD PCP - General Internal Medicine 07/24/12 documented as of this encounter
--- OUTSIDE RECORDS SUMMARY | 2025-06-04 10:39 | XMS_ITS | Encounter Summary ---
Author Organization [facility] Address [address] [place] [address] Care Team Providers Care Warehouse Receiving Clerk Name Role Phone Balaji Angulo MD Primary Care Provider Reason for Referral * Outpatient Services (Routine) - Closed Specialty Diagnoses / Procedures Referred By Bharti gomez Referred To Contact Radiology Diagnoses Osteopenia Menopause Procedures XR DEXA BONE DENSITY AXIAL 1 OR MORE SITES Balaji Angulo MD Phone: tel: fax: [facility] [address] [place] [address] Phone: tel: fax: Referral ID Status Reason Start Date Expiration Date V isits Requested Visits Authorized [id number] Closed [facility] View CTS to Schedule (SGF) 01/12/2016 02/11/2017 1 1 Encounter Details Date Type Department Care Team (Latest Contact Info) Description 01/12/2016 Ancillary Orders [facility] Scheduling [address] [facility] [address] [place] [address] Balaji Angulo MD [address] [facility] [address] [place] [address] Osteopenia (Primary Dx); Menopause; Encounter for screening mammogram for malignant neoplasm of breast Social History Tobacco Use Types Packs/Day Years Used Date Smoking Tobacco: Former Cigarettes 1 2.5 1 - 10/10/1974 Alcohol Use Standard Drinks/Week Comments No 0 (1 standard drink = 0.6 oz pur e alcohol) Comments No Sex and Gender Information Value Date Recorded Sex Assigned at Not on file 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 Normal bone mineral density. Fracture risk is not increased. Bone mineral calculations were obtained from the lumbar spine and left hip. [id number] Narrative 01/13/2016 3:28 PM CDT Exam: XR DEXA BONE DENSITY AXIAL 1 OR MORE SITES Date/Time of Exam: 01/13/2016 1:14 PM Reason For Exam: Osteopenia,Menopause. Findings: Bone mineral density is 1.094 g/cm2 with a T score of 0.4 and a Z score of 2.7. World Health Organization classifies these numbers as normal bone mineral density. Balaji Angulo MD DIAGNOSTIC IMAGING ORD ERABLES Final Result documented in this encounter Visit Diagnoses Diagnosis Osteopenia- Primary Disorder of bone and cartilage, unspecified Menopause Symptomatic menopausal or female climacteric states Encounter for screening mammogram for malignant neoplasm of breast Other screening mammogram Osteopenia Disorder of bone and cartilage, unspecified Menopause Symptomatic menopausal or female climacteric states documented in this encounter Care Teams Warehouse Receiving Clerk Relationship Specialty Start Date End Date Balaji Angulo MD PCP - General Internal Medicine 07/24/12 documented as of this encounter
--- OUTSIDE RECORDS SUMMARY | 2025-06-04 10:39 | XMS_ITS | Encounter Summary ---
Author Organization [facility] Address [address] [place] [address] Care Team Providers Care Daytime Caregiver Name Role Phone Balaji Angulo MD Primary Care Provider Encounter Details Date Type Department Care Team (Late st Contact Info) Description 09/22/2008 Ancillary Orders [facility] External Department [address] [place] [address] [facility], External Provider [address] [place] [address] STEPHENSON (Headache) Social History Tobacco Use Types Packs/Day Years Used Date Smoking Tobacco: Never Assessed Comments Unknown Sex and Gender Information Value Date Recorded Sex Assigned at Not on file Legal Sex Female 4:23 AM CARDIOLOGY RN Gender Identity Not on file Sexual Orientation Not on file documented as of this encounter Plan of Treatment Not on file documented as of this encounter Visit Diagnoses Diagnosis STEPHENSON (headache) Headache documented in this encounter Care Teams Daytime Caregiver Relationship Specialty Start Date End Date Balaji Angulo MD PCP - General Internal Medicine 07/24/12 documented as of this encounter
--- OUTSIDE RECORDS SUMMARY | 2025-06-04 10:39 | XMS_ITS | Encounter Summary ---
Author Organization [facility] Address [address] [place] [address] Care Team Providers Care Caddy Name Role Phone Balaji Angulo MD Primary Care Provider Reason for Referral * Outpatient Services (Routine) - Closed Specialty Diagnoses / Procedures Referred By Bharti gomez Referred To Contact Radiology Diagnoses Carotid bruit Procedures US CAROTID DOPPLER Jackie Wilson FNP Phone: tel: fax: [facility] [address] [place] [address] Phone: tel: fax: Referral ID Status Reason Start Date Expiration Date V isits Requested Visits Authorized [id number] Closed [facility] View CTS to Schedule (SGF) 03/23/2017 04/23/2018 1 1 Encounter Details Date Type Department Care Team ([facility] st Contact Info) Description 03/23/2017 Ancillary Orders [facility] Centralized Scheduling [address] [facility] [address] [place] [address] Jackie Wilson FNP [address] [address] Carotid bruit Social History Tobacco Use Types Packs/Day Years Used Date Smoking Tobacco: Former Cigarettes 1 2.5 1 - 10/10/1974 Alcohol Use Standard Drinks/Week Comments No 0 (1 standard drink = 0.6 oz pur e alcohol) Comments No Sex and Gender Information Value Date Recorded Sex Assigned at Not on file 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 Gender Identity Not on file Sexual Orientation Not on file Occupation Industry Job Start Date Job End Date Not on file Not on file Not on file Not on file Not on file Not on file Not on file Not on file documented as of this encounter Plan of Treatment Not on file documented as of this encounter Results * US CAROTID DOPPLER (03/24/2017 12:27 PM CDT) Anatomical Region Laterality Modality Neck Ultrasound 03/24/2017 12:1 0 PM CDT Narrative 03/25/2017 5:00 PM CDT [facility] Radiology Services - Noninvasive Vascular [address] [address] Noninvasive Vascular Lab Cerebrovascular Exam Carotid Duplex Patient: Cheyenne Pete Study ID: [id number] Gender: Darnell : 1940 Age: 76 Room: Height: 155cm Weight: 68.7kg BSA: 1.74m\S\2 Pt status: Outpatient Study Date: 03/24/2017 Study Time: 12:10 PM BSA: 1.74m\S\2 Ordering: Jackie Wilson Interpreting:Bigg Mckeon MD, RPVI Associate Loan Officer: Mehul Aguillon Summary The internal carotid arteries reveal no evidence of plaque or stenosis. The common and external carotid arteries reveal no significant stenosis. Spectral velocity data is normal with normal peak systolic and diastolic velocities. The vertebral arteries are patent with normal antegrade flow. Impression: No evidence of significant extracrancial carotid disease. Study data: Carotid duplex study. Complete study and Doppler flow study including spectral analysis, color and chadwick scale imaging. Birthdate: Patient birthdate: 1940. Age: Patient is 76yr old. Sex: Gender: female. Ethnicity: Ethnicity: white. Height: Height: 155cm. Height: 61in. Weight: Weight: 68.7kg. Weight: 151.1lb. Body mass index: BMI: 28.6kg/m\S\2. Body surface area: BSA: 1.74m\S\2. Study date: Study date: 03/24/2017. Location: Vascular laboratory. Patient status: Outpatient. Study status: Routine. Procedure: A vascular evaluation was performed. Image quality was good. Arterial flow: - Right CCA - mid - 0.64m/sec 0.17m/sec - Right carotid bifurcation - 0.43m/sec 0.19m/sec - Right ECA - -0.38m/sec -0.1m/sec - Right ICA - proximal - -0.76m/sec -0.31m/sec - Right ICA - mid - -0.78m/sec -0.31m/sec - Right ICA - distal - -0.88m/sec -0.34m/sec - Right vertebral - 0.52m/sec 0.16m/sec - Left CCA - mid - 0.64m/sec 0.22m/sec - Left carotid bifurcation - 0.49m/sec 0.16m/sec - Left ECA - -0.99m/sec -0.22m/sec - Left ICA - proximal - -0.78m/sec -0.31m/sec - Left ICA - mid - -0.78m/sec -0.28m/sec - Left ICA - distal - -0.54m/sec -0.24m/sec - Left vertebral - 0.49m/sec 0.16m/sec Prepared and Electronically Authenticated Bigg Mckeon MD, TR[place]ON Confirmed 03/25/2017 17:00 Procedure Note Bigg Mckeon MD - 03/25/2017 [facility] Radiology Services - Noninvasive Vascular [address] [address] Noninvasive Vascular Lab Cerebrovascular Exam Carotid Duplex Patient: Cheyenne Pete Study ID: [id number] Gender: F : 1940 Age: 76 Room: Height: 155cm Weight: 68.7kg BSA: 1.74m\S\2 Pt status: Outpatient Study Date: 03/24/2017 Study Time: 12:10 PM BSA: 1.74m\S\2 Ordering: Jackie Wilson Interpreting:Bigg Mckeon MD, TRENTON Associate Loan Officer: Mehul Aguillon Summary The internal carotid arteries reveal no evidence of plaque or stenosis. The common and external carotid arteries reveal no significant stenosis. Spectral velocity data is normal with normal peak systolic and diastolic velocities. The vertebral arteries are patent with normal antegrade flow. Impression: No evidence of significant extracrancial carotid disease. Study data: Carotid duplex study. Complete study and Doppler flow study including spectral analysis, color and chadwick scale imaging. Birthdate: Patient birthdate: 1940. Age: Patient is 76yr old. Sex: Gender: female. Ethnicity: Ethnicity: white. Height: Height: 155cm. Height: 61in. Weight: Weight: 68.7kg. Weight: 151.1lb. Body mass index: BMI: 28.6kg/m\S\2. Body surface area: BSA: 1.74m\S\2. Study date: Study date: 03/24/2017. Location: Vascular laboratory. Patient status: Outpatient. Study status: Routine. Procedure: A vascular evaluation was performed. Image quality was good. Arterial flow: - Right CCA - mid - 0.64m/sec 0.17m/sec - Right carotid bifurcation - 0.43m/sec 0.19m/sec - Right ECA - -0.38m/sec -0.1m/sec - Right ICA - proximal - -0.76m/sec -0.31m/sec - Right ICA - mid - -0.78m/sec -0.31m/sec - Right ICA - distal - -0.88m/sec -0.34m/sec - Right vertebral - 0.52m/sec 0.16m/sec - Left CCA - mid - 0.64m/sec 0.22m/sec - Left carotid bifurcation - 0.49m/sec 0.16m/sec - Left ECA - -0.99m/sec -0.22m/sec - Left ICA - proximal - -0.78m/sec -0.31m/sec - Left ICA - mid - -0.78m/sec -0.28m/sec - Left ICA - distal - -0.54m/sec -0.24m/sec - Left vertebral - 0.49m/sec 0.16m/sec Prepared and Electronically Authenticated Bigg Mckeon MD, RPVI Confirmed 03/25/2017 17:00 Jackie Wilson [facility] US ORDERABLES Final Result documented in this encounter Visit Diagnoses Diagnosis Carotid bruit Other symptoms involving cardiovascular system Carotid bruit Other symptoms involving cardiovascular system documented in this encounter Care Teams Caddy Relationship Specialty Start Date End Date Balaji Angulo MD PCP - General Internal Medicine 07/24/12 documented as of this encounter
--- OUTSIDE RECORDS SUMMARY | 2025-06-04 10:39 | XMS_ITS | Encounter Summary ---
Author Organization [facility] Address [address] [place] [address] Care Team Providers Care Tank House Operator Name Role Phone Balaji Angulo MD Primary Care Provider Encounter Details Date Type Department Care Team (Late st Contact Info) Description 06/14/2016 Ancillary Orders [facility] Centralized Scheduling [address] [facility] [address] [place] [phone] Marni Brannon, SCARIFIER OPERATOR [address] [place] [address] Social History Tobacco Use Types Packs/Day Years Used Date Smoking Tobacco: Former Cigarettes 1 2.5 1 - 10/10/1974 Alcohol Use Standard Drinks/Week Comments No 0 (1 standard drink = 0.6 oz pur e alcohol) Comments No Sex and Gender Information Value Date Recorded Sex Assigned at Not on file 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
--- OUTSIDE RECORDS SUMMARY | 2025-06-04 10:39 | XMS_ITS | Encounter Summary ---
Author Organization [facility] Address [address] [place] [address] Care Team Providers Care Tariff Compiler Name Role Phone Balaji Angulo MD Primary Care Provider Reason for Referral * Outpatient Services (Routine) - Closed Specialty Diagnoses / Procedures Referred By Bharti gomez Referred To Contact Diagnoses Other screening mammogram Procedures MAMMO DIGITIZED STUDY Balaji Angulo MD [address] [place] [address] Phone: tel: fax: Referral ID Status Reason Start Date Expiration Date Visits Re quested Visits Authorized [id number] Closed 08/14/2012 09/14/2013 1 1 IT CARD CONTROL CLERK Encounter Details Date Type Department Care Team (Latest Contact Info) Description 08/14/2012 Ancillary Orders [facility] Centralized Scheduling [address] [facility] [address] [place] [phone] Balaji Angulo MD [address] [place] [address] Other screening mammogram (Primary Dx) Social History Tobacco Use Types Packs/Day Years Used Date Smoking Tobacco: Former Cigarettes 1 2.5 1 - 10/10/1974 Alcohol Use Standard Drinks/Week Comments No 0 (1 standard drink = 0.6 oz pur e alcohol) Comments No Sex and Gender Information Value Date Recorded Sex Assigned at Not on file Legal Sex Female 4:23 AM CREDIT CARD CONTROL CLERK Gender Identity Not on file Sexual Orientation Not on file Occupation Industry Job Start Date Job End Date Not on file Not on file Not on file Not on file Not on file Not on file Not on file Not on file documented as of this encounter Plan of Treatment Not on file documented as of this encounter Results * MAMMO DIGITIZED STUDY (02/27/2008 3:51 PM CDT) Narrative Tati Medeiros, RT - 08/14/2012 3:51 PM CREDIT CARD CONTROL CLERK Order information only. Exam was auto-finalized. Procedure Note Tati Medeiros, RT - 08/14/2012 Order information only. Exam was auto-finalized. Balaji Angulo MD DIAGNOSTIC IMAGING ORD ERABLES Final Result documented in this encounter Visit Diagnoses Diagnosis Other screening mammogram- Primary Other screening mammogram documented in this encounter Care Teams Tariff Compiler Relationship Specialty Start Date End Date Balaji Angulo MD PCP - General Internal Medicine 07/24/12 documented as of this encounter
--- OUTSIDE RECORDS SUMMARY | 2025-06-04 10:39 | XMS_ITS | Encounter Summary ---
Author Organization [facility] Address [address] [place] [address] Care Team Providers Care Manager Integrity Name Role Phone Balaji Angulo MD Primary Care Provider Reason for Referral * Outpatient Services (Routine) - Closed Specialty Diagnoses / Procedures Referred By Bharti gomez Referred To Contact Radiology Diagnoses Pulmonary nodule Procedures CT CHEST W CONTRAST Balaji Angulo MD [address] [employer] [address] [place] [address] Phone: tel: fax: [facility] CT Scan [facility] [address] [place] [address] Phone: tel: fax: Referral ID Status Reason Start Date Expiration Date Visits Re quested Visits Authorized [id number] Closed 10/22/2012 2013 1 1 Encounter Details Date Type Department Care Team (Latest Contact Info) Description 10/22/2012 Ancillary Orders [facility] Centralized Scheduling [address] [place] [phone] Balaji Angulo MD [address] [place] [phone] Pulmonary nodule (Primary Dx) Social History Tobacco Use Types Packs/Day Years Used Date Smoking Tobacco: Former Cigarettes 1 2.5 1 - 10/10/1974 Alcohol Use Standard Drinks/Week Comments No 0 (1 standard drink = 0.6 oz pur e alcohol) Comments No Sex and Gender Information Value Date Recorded Sex Assigned at Not on file Legal Sex Female 4:23 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 Gender Identity Not on file Sexual Orientation Not on file Occupation Industry Job Start Date Job End Date Not on file Not on file Not on file Not on file Not on file Not on file Not on file Not on file documented as of this encounter Plan of Treatment Not on file documented as of this encounter Results * CT CHEST W CONTRAST (10/30/2012 9:40 AM CDT) Anatomical Region Laterality Modality Chest Computed Tomogra phy 10/30/2012 9:32 AM CDT Narrative 10/30/2012 10:35 AM CDT PROCEDURE CHEST CT, IV contrast enhanced 30 Oct 2012 TECHNIQUE After injection of 100 mL [id number] nonionic contrast material intravenously, helical axial CT was obtained from the base of the neck into the abdomen and imaged at 5 mm increments for 73 axial images. Sagittal and coronal reconstructions are also obtained. DESCRIPTION On lung window imaging the lungs appear clear. There is some scarring or atelectasis in the lung bases. No pulmonary nodules are identified. There are several scattered granulomatous calcifications noted. The size and configuration of the nodular density on the chest radiograph of 14 March 2012 appears to correspond to nipple shadow on comparison to the current CT. The study 05 June 2012 was a portable AP projection and the nipple does not project over the lung base on that view. No other corresponding pulmonary density is seen at this time. Mediastinal windows settings shows no mediastinal mass or adenopathy. No hilar adenopathy is seen. Several small mediastinal nodes are seen, not considered pathologic by radiographic size criteria. The chest wall appears intact without axillary adenopathy. The partially visualized liver, gallbladder, and pancreas appear unremarkable. The adrenal glands and visualized portions of the upper poles the kidneys appear unremarkable, except for note of multiple lucencies of the kidneys compatible with cysts. The largest on the right lies anteriorly and measures 3.3 cm in diameter. The largest on the left lies medially and measures 2.7 cm in diameter. The stomach is nondistended. There is moderate fecal artifact in the visualized portion of the colon. IMPRESSION 1. no acute changes of the chest seen 2. no pulmonary or mediastinal masses or adenopathy seen 3. density on the chest radiograph of 14 March 2012 corresponds well with nipple configuration Procedure Note Johny Haider MD - 10/30/[address], IV contrast enhanced 30 Oct 2012 TECHNIQUE After injection of 100 mL [id number] nonionic contrast material intravenously, helical axial CT was obtained from the base of the neck into the abdomen and imaged at 5 mm increments for 73 axial images. Sagittal and coronal reconstructions are also obtained. DESCRIPTION On lung window imaging the lungs appear clear. There is some scarring or atelectasis in the lung bases. No pulmonary nodules are identified. There are several scattered granulomatous calcifications noted. The size and configuration of the nodular density on the chest radiograph of 14 March 2012 appears to correspond to nipple shadow on comparison to the current CT. The study 05 June 2012 was a portable AP projection and the nipple does not project over the lung base on that view. No other corresponding pulmonary density is seen at this time. Mediastinal windows settings shows no mediastinal mass or adenopathy. No hilar adenopathy is seen. Several small mediastinal nodes are seen, not considered pathologic by radiographic size criteria. The chest wall appears intact without axillary adenopathy. The partially visualized liver, gallbladder, and pancreas appear unremarkable. The adrenal glands and visualized portions of the upper poles the kidneys appear unremarkable, except for note of multiple lucencies of the kidneys compatible with cysts. The largest on the right lies anteriorly and measures 3.3 cm in diameter. The largest on the left lies medially and measures 2.7 cm in diameter. The stomach is nondistended. There is moderate fecal artifact in the visualized portion of the colon. IMPRESSION 1. no acute changes of the chest seen 2. no pulmonary or mediastinal masses or adenopathy seen 3. density on the chest radiograph of 14 March 2012 corresponds well with nipple configuration us Balaji Angulo MD CT ORDERABLES Final Result documented in this encounter Visit Diagnoses Diagnosis Pulmonary nodule- Primary Solitary pulmonary nodule Pulmonary nodule Solitary pulmonary nodule documented in this encounter Care Teams Manager Integrity Relationship Specialty Start Date End Date Balaji Angulo MD PCP - General Internal Medicine 07/24/12 documented as of this encounter
--- OUTSIDE RECORDS SUMMARY | 2025-06-04 10:39 | XMS_ITS | Encounter Summary ---
Author Organization [facility] Address [address] [place] [address] Care Team Providers Care Wire Straightener Name Role Phone Balaji Angulo MD Primary Care Provider Encounter Details Date Type Department Care Team (Late st Contact Info) Description 03/14/2012 Ancillary Orders [facility] [place] [address] [place] [address] Jessica Duffy MD [address] [place] [address] Chronic airway obstruction, not elsewhere classified (CMS/HCC); Other dyspnea and respiratory abnormality; Other diseases of lung, not elsewhere classified Social History Tobacco Use Types Packs/Day Years Used Date Smoking Tobacco: Former Alcohol Use Standard Drinks/Week Comments No 0 (1 standard drink = 0.6 oz pur e alcohol) Comments No Sex and Gender Information Value Date Recorded Sex Assigned at Not on file 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 Gender Identity Not on file Sexual Orientation Not on file Occupation Industry Job Start Date Job End Date Not on file Not on file Not on file Not on file documented as of this encounter Plan of Treatment Not on file documented as of this encounter Results * XR CHEST PA AND LATERAL (03/14/2012 2:49 PM CDT) Anatomical Region Laterality Modality Chest Computed Radiogr aphy 03/14/2012 2:46 PM CDT Narrative 03/14/2012 3:34 PM CDT PROCEDURE CHEST, 2 views 14 March 2012 COMPARISON Current: PA and lateral chest views 14 March 2012 Prior: none DESCRIPTION Frontal view of the chest shows no acute infiltrate or atelectasis. There is aortic tortuosity. There is thoracolumbar levoscoliosis and lower dorsal dextroscoliosis with osteoarthritis. Demineralization of the spine is noted on the lateral view suggesting osteoporosis. On the lateral view, no infiltrate or spine sign is seen. There is a nodular density in the right lung base projected at the right seventh rib end of similar size to the rib end measuring approximately 1.6 cm in diameter, possibly representing nipple shadow versus pulmonary nodule. No nodule is identified on the lateral view. Comparison to previous studies or follow-up is suggested. IMPRESSION 1. possible nodule the right lung base 2. aortic tortuosity 3. no acute confluent infiltrate seen Procedure Note Johny Haider MD - 03/14/2012 PROCEDURE CHEST, 2 views 14 March 2012 COMPARISON Current: PA and lateral chest views 14 March 2012 Prior: none DESCRIPTION Frontal view of the chest shows no acute infiltrate or atelectasis. There is aortic tortuosity. There is thoracolumbar levoscoliosis and lower dorsal dextroscoliosis with osteoarthritis. Demineralization of the spine is noted on the lateral view suggesting osteoporosis. On the lateral view, no infiltrate or spine sign is seen. There is a nodular density in the right lung base projected at the right seventh rib end of similar size to the rib end measuring approximately 1.6 cm in diameter, possibly representing nipple shadow versus pulmonary nodule. No nodule is identified on the lateral view. Comparison to previous studies or follow-up is suggested. IMPRESSION 1. possible nodule the right lung base 2. aortic tortuosity 3. no acute confluent infiltrate seen us S Federico Duffy MD DIAGNOSTIC IMAGING ORDERABLES Fi nal Result documented in this encounter Visit Diagnoses Diagnosis Chronic airway obstruction, not elsewhere classified (CMS/HCC) Chronic airway obstruction, not elsewhere classified Other dyspnea and respiratory abnormality Other diseases of lung, not elsewhere classified Chronic airway obstruction, not elsewhere classified (CMS/HCC) Chronic airway obstruction, not elsewhere classified Other dyspnea and respiratory abnormality Other diseases of lung, not elsewhere classified documented in this encounter Care Teams Wire Straightener Relationship Specialty Start Date End Date Balaji Angulo MD PCP - General Internal Medicine 07/24/12 documented as of this encounter
--- OUTSIDE RECORDS SUMMARY | 2025-06-04 10:39 | XMS_ITS | Clinical Summary ---
Author Organization [facility] Address [address] [place] [address] Phone Care Team Providers Care Senior Estimator Name Role Phone Balaji Angulo MD Primary Care Provider Allergies No known active allergies Medications budesonide-form oteroL (SYMBICORT) 160-4.5 mcg/actuation HFA Aerosol Inhaler Take 2 Puffs by inhalation 2 times daily. Active atorvastatin (LIPITOR) 20 mg tablet Take 40 mg by mouth. Active levothyroxine 100 mcg tablet Take 100 mcg by mouth daily. Active metFORMIN (GLUCOPHAGE) 500 mg tablet Take 500 mg by mouth. Active multivitamin (DAILY-DAREN) tablet Take 1 Tablet by mouth daily. Active acetaminophen (TYLENOL) 500 mg tablet Take 1,000 mg by mouth every 6 hours as needed. Active anastrozole (ARIMIDEX) 1 mg tablet Take by mouth daily. Active calcium-vitamin D3 (CALTRATE 600+D) 600 mg(1,500mg) -200 unit Tablet Take by mouth. Activ e cetirizine (ZyrTEC) 10 mg tablet Take 10 mg by mouth daily. Active furosemide (LASIX) 20 mg tablet Take 20 mg by mouth daily. Active glucosamine HCl/chondroitin adams (GLUCOSAMINE-CH ONDROITIN ORAL) Take by mouth. Active losartan (COZAAR) 100 mg tablet Take 100 mg by mouth daily. Active meloxicam (MOBIC) 15 mg tablet Take 15 mg by mouth daily. Active metoprolol tartrate (LOPRESSOR) 50 mg tablet Take 50 mg by mouth 2 times daily. Active montelukast (SINGULAIR) 10 mg tablet Take 10 mg by mouth daily at bedtime. Active C,E,zinc,copper 11/dnmyv2i/lut (OCUVITE ADULT 50 PLUS ORAL) Take by mouth. A ctive sennosides-docu sate sodium (SENNA-S) 8.6-50 mg tablet Take 1 Tablet by mouth daily. Active multivitamin (DAILY-DAREN) tablet Take 1 Tab by mouth daily. 5 Active omega-3 fatty acids-fish oil 300-1,000 mg Capsule Take by mouth daily. 5 Active lisinopriL (PRINIVIL) 5 mg tablet Take 5 mg by mouth daily. 5 Active metFORMIN (GLUCOPHAGE) 500 mg tablet Take 500 mg by mouth daily with breakfast. 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 Adenomatous colon polyp 06/03/2011 Hx of adenomatous colonic polyps 05/13/2011 Immunizations Immunization Administration Dates Next Due (ADACEL/BOOSTRIX)(10 YR UP) TDAP VACCINE, 0.5ML, IM 12/26/2020 (PFIZER)(12 YR UP) COVID-19 VACCINE - EMERGENCY USE AUTHORIZATION, MRNA, [id number](PF) 30 MCG/0.3 ML IM SUSP 09/24/2020,09/03/2020 Family History Medical History Relation Name Comments Cancer Brother LUNG CANCER Lung Cancer Brother Heart Disease Mother Hypertension Mother Stroke Mother Cancer Other 1 NEPHEW LUNG CANCER/WALTER CREATIC CANCER Other Other 2 NIECE ARDS Cancer Sister 1 CERVICAL CANCER Thyroid Disease Sister 1 Breast Cancer Neg Hx Ovarian Cancer Neg Hx Relation Name Status Comments Brother Daughter 1 Alive Daughter 2 Alive Maternal Grandmother Mother Other 1 NEPHEW Other 2 NIECE Sister 1 Alive Sister 2 Alive Social History Tobacco Use Types Packs/Day Years Used Date Smoking Tobacco: Former Cigarettes 1 Q uit: 10/10/1974 Tobacco Cessation:Counseling Given: Not Answered Alcohol Use Standard Drinks/Week Comments No 0 (1 standard drink = 0.6 oz pur e alcohol) Comments No Sex and Gender Information Value Date Recorded Sex Assigned at Not on file 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 Gender Identity Not on file Sexual Orientation Not on file Last Filed Vital Signs Vital Sign Reading Time Taken Comments Blood Pressure 120/78 04/14/2022 10:15 PM CDT Pulse 78 04/14/2022 9:00 PM CDT Temperature 36.7 C (98 F) 04/14/2022 10:15 PM CDT Respiratory Rate 20 04/14/2022 10:15 PM CDT Oxygen Saturation 97% 04/14/2022 10:15 PM CDT Inhaled Oxygen Concentration - - Weight 61.2 kg (135 lb) 04/14/2022 8:09 PM CDT Height 152.4 cm (5') 04/14/2022 8:09 PM CDT Body Mass Index 26.37 04/14/2022 8:09 PM CDT Plan of Treatment Health Maintenance Due Date Last Done Comments DIABETES ANNUAL FOOT EXAM 1960 DIABETES ANNUAL RETINAL EXAM 1960 DIABETES HBA1C Q 6 MONTHS 1960 DIABETES MICROALBUMIN ANNUAL SCREEN 1960 LDL CHOLESTEROL ANNUAL 1960 ZOSTER VACCINE (1 of 2) 1992 PNEUMOCOCCAL VACCINE 50+ YEA RS (2 of 2 - PCV) 03/24/2009 03/24/2008 COLORECTAL SCREENING 10/30/2017 10/30/2014 RSV VACCINE (60+ or ) (1 - 1-dose 75+ series) 2017 OSTEOPOROSIS SCREENING 01/12/2021 01/13/2016, 2015 [place] Preventative Visit/Annual Wellness Visit 06/12/2024 INFLUENZA VACCINE (#1) 2025 8, 03/12/2017, 03/06/2013, Additional history exists COVID-19 Vaccine (3 - 2024-2 6 season) 2025 09/24/2020, 09/03/2020 DTAP/TDAP/TD VACCINES (2 - T d or Tdap) 12/26/2030 12/26/2020 Procedures Procedure Name Priority Date/Time Associated Diagnosis Comments XR DEXA BONE DENSITY AXIAL 1 OR MORE SITES Routine 01/13/2016 1:14 PM CDT Osteopenia Menopause from Last 3 Months or Most Recently Relevant to Health Maintenance Results * XR DEXA BONE DENSITY AXIAL 1 OR MORE SITES (01/13/2016 1:14 PM CDT) Anatomical Region Laterality Modality Other Impressions 01/13/2016 3:28 PM CDT 1. Normal bone mineral density. Fracture risk is not increased. Bone mineral calculations were obtained from the lumbar spine and left hip. [id number] Narrative 01/13/2016 3:28 PM CDT Exam: XR DEXA BONE DENSITY AXIAL 1 OR MORE SITES Date/Time of Exam: 01/13/2016 1:14 PM Reason For Exam: Osteopenia,Menopause. Findings: Bone mineral density is 1.094 g/cm2 with a T score of 0.4 and a Z score of 2.7. World Health Organization classifies these numbers as normal bone mineral density. Procedure Note Bora Hernandez, DO - 09/13/2021 Exam: XR DEXA BONE DENSITY AXIAL 1 OR MORE SITES Date/Time of Exam: 01/13/2016 1:14 PM Reason For Exam: Osteopenia,Menopause. Findings: Bone mineral density is 1.094 g/cm2 with a T score of 0.4 and a Z score of 2.7. World Health Organization classifies these numbers as normal bone mineral density. IMPRESSION 1. Normal bone mineral density. Fracture risk is not increased. Bone mineral calculations were obtained from the lumbar spine and left hip. [id number] Balaji Angulo MD DIAGNOSTIC IMAGING ORD ERABLES Final Result from Last 3 Months or Most Recently Relevant to Health Maintenance Insurance [place] Care Teams Senior Estimator Relationship Specialty Start Date End Date Balaji Angulo MD PCP - General 08/29/20
--- OUTSIDE RECORDS SUMMARY | 2025-06-04 10:39 | XMS_ITS | Encounter Summary ---
Author Organization [facility] Address [address] [place] [address] Care Team Providers Care Branch General Manager Name Role Phone Balaji Angulo MD Primary Care Provider Reason for Referral * Outpatient Services (Routine) - Closed Specialty Diagnoses / Procedures Referred By Bharti gomez Referred To Contact Radiology Diagnoses Other screening mammogram Procedures MAMMO DIGITAL SCREEN BILAT Balaji Angulo MD [address] [place] [address] Phone: tel: fax: [facility] [address] [place] [address] Phone: tel: fax: Referral ID Status Reason Start Date Expiration Date V isits Requested Visits Authorized [id number] Closed [facility] CTS to Schedule (SGF) 08/10/2012 09/10/2013 1 2 S PROPERTY MANAGER Encounter Details Date Type Department Care Team (Latest Contact Info) Description 08/10/2012 Ancillary Orders [facility] Centralized Scheduling [address] [facility] [address] [place] [address] Balaji Angulo MD [address] [place] [phone] Other screening mammogram (Primary Dx) Social History Tobacco Use Types Packs/Day Years Used Date Smoking Tobacco: Former Cigarettes 1 2.5 1 - 10/10/1974 Alcohol Use Standard Drinks/Week Comments No 0 (1 standard drink = 0.6 oz pur e alcohol) Comments No Sex and Gender Information Value Date Recorded Sex Assigned at Not on file 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 This examination was reviewed with the aid of a computer-aided detection system(CAD). The breast tissue density is average. No significant new findings since the prior mammogram(s). Procedure Note Lise Wang MD - 08/17/2012 Bilateral Mammogram Reason for Exam: Screening Comparison: Comparison is made with the prior exam(s) dated 02.27.08,05.11.10 Findings: Bilateral CC and MLO views were obtained. This examination was reviewed with the aid of a computer-aided detectionsystem(CAD). The breast tissue density is average. No significant new findings since the prior mammogram(s). Balaji Angulo MD MAMMO ORDERABLES Final Result documented in this encounter Visit Diagnoses Diagnosis Other screening mammogram- Primary Other screening mammogram documented in this encounter Care Teams Branch General Manager Relationship Specialty Start Date End Date Balaji Angulo MD PCP - General Internal Medicine 07/24/12 documented as of this encounter
--- OUTSIDE RECORDS SUMMARY | 2025-06-04 10:39 | XMS_ITS | Encounter Summary ---
Author Organization [facility] Address [address] [place] [address] Care Team Providers Care Chemical Economist Name Role Phone Balaji Angulo MD Primary Care Provider Encounter Details Date Type Department Care Team (Latest Contact Info) Description 03/23/2007 Outpatient [facility]3] Breast Center [facility] [address] [place] [address] Balaji Angulo MD [address] [facility] [address] [place] [address] Abnormal Mammogram, Unspecified (Primary Dx) Social History Tobacco Use Types Packs/Day Years Used Date Smoking Tobacco: Never Assessed Comments Unknown Sex and Gender Information Value Date Recorded Sex Assigned at Not on file 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
--- OUTSIDE RECORDS SUMMARY | 2025-06-04 10:39 | XMS_ITS | Clinical Summary ---
Author Organization [facility] Address [address] [place] [address] Phone Care Team Providers Care Business Office Representative Name Role Phone Balaji Angulo MD Primary Care Provider Allergies No known active allergies Medications metoprolol succinate ER 24 hour (TOPROL XL) 50 mg Oral tablet Take 50 mg by mouth daily. Active levothyroxine (SYNTHROID) 100 mcg Oral tablet Take 100 mcg by mouth daily. Active budesonide-form oterol (SYMBICORT) 160-4.5 mcg/Actuation Inhalation HFAA Take 2 Puffs by inhalation 2 times daily. Active ALBUTEROL SULFATE INHALATION Take by inhalation. PRN Active atorvastatin (LIPITOR) 20 mg Oral tablet Take 40 mg by mouth Daily LATE . Active lisinopril (PRINIVIL) 5 mg tablet Take 5 mg by mouth daily. Active metFORMIN (GLUCOPHAGE) 500 mg tablet Take 500 mg by mouth daily with breakfast. Active multivitamin (DAILY-DAREN) tablet Take 1 Tab by mouth daily. Active omega-3 fatty acids-fish oil 300-1,000 mg Capsule Take by mouth daily. 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 Gender Identity Not on file Sexual Orientation Not on file Occupation Industry Job Start Date Job End Date Not on file Not on file Not on file Not on file Not on file Not on file Not on file Not on file Last Filed Vital Signs Vital Sign Reading Time Taken Comments Blood Pressure 120/70 11/05/2014 1:44 PM CDT Pulse 68 11/05/2014 1:44 PM CDT Temperature 36 C (96.8 F) 11/05/2014 1:44 PM CDT Respiratory Rate 18 11/05/2014 1:44 PM CDT Oxygen Saturation 98% 11/05/2014 1:44 PM CDT Inhaled Oxygen Concentration - - Weight 68.7 kg (151 lb 6.4 oz) 11/05/2014 1:44 P M CDT Height 154.9 cm (5' 1 ) 11/05/2014 1:44 PM CDT Body Mass Index 28.61 11/05/2014 1:44 PM CDT Plan of Treatment Health Maintenance Due Date Last Done Comments DTAP/TDAP/TD VACCINES (1 - Tdap) 1961 PNEUMOCOCCAL VACCINE 50+ YEA RS (1 of 1 - PCV) 1992 ZOSTER VACCINE (1 of 2) 1992 COLORECTAL SCREENING 10/30/2017 10/30/2014, 10/30/2014, 07/24/2012 RSV VACCINE (60+ or ) (1 - 1-dose 75+ series) 2017 OSTEOPOROSIS SCREENING 01/12/2021 01/13/2016 [place] Prev entative Visit/Annual Wellness Visit 06/12/2024 INFLUENZA VACCINE (#1) 2025 COVID-19 Vaccine ( season) 2025, 09/03/2020 Procedures Procedure Name Priority Date/Time Associated Diagnosis [...] from the lumbar spine and left hip. [id number] Narrative 01/13/2016 3:28 PM CDT Exam: XR [...] Most Recently Relevant to Health Maintenance Insurance [facility] DUAL COMPLETE [facility] PPO D-SNP Advance Directives For more information, please contact: [phone] * Full Code (Latest Code Status on File) Date Activated Date Inactivated Comments 10/30/2014 11:13 AM 10/30/2014 1:37 PM Care Teams Business Office Representative Relationship Specialty Start Date End Date Balaji Angulo MD PCP - General Internal Medicine 07/24/12
--- OUTSIDE RECORDS SUMMARY | 2025-06-04 10:39 | XMS_ITS | Encounter Summary ---
Author Organization [facility] Address [address] [place] [address] Care Team Providers Care Parts Designer Name Role Phone Balaji Angulo MD Primary Care Provider Reason for Referral * Outpatient Services (Routine) - Closed Specialty Diagnoses / Procedures Referred By Bharti gomez Referred To Contact Radiology Diagnoses Other screening mammogram Procedures MAMMO DIGITAL SCREEN BILAT Balaji Angulo MD Phone: tel: fax: [facility] [address] [place] [address] Phone: tel: fax: Referral ID Status Reason Start Date Expiration Date V isits Requested Visits Authorized [id number] Closed [facility] View CTS to Schedule (SGF) 09/11/2014 10/12/2015 1 1 Encounter Details Date Type Department Care Team (Latest Contact Info) Description 09/11/2014 Ancillary Orders [facility] Centralized Scheduling [address] [facility] [address] [place] [phone] Balaji Angulo MD [address] [facility] [address] [place] [address] Other screening mammogram (Primary Dx) Social History Tobacco Use Types Packs/Day Years Used Date Smoking Tobacco: Former Cigarettes 1 2.5 1 - 10/10/1974 Alcohol Use Standard Drinks/Week Comments No 0 (1 standard drink = 0.6 oz pur e alcohol) Comments No Sex and Gender Information Value Date Recorded Sex Assigned at Not on file 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 This examination was reviewed with the aid of a computer-aided detection system(CAD). The breast tissue is dense. No significant new findings since the prior mammogram(s). Balaji Angulo MD MAMMO ORDERABLES Final Result documented in this encounter Visit Diagnoses Diagnosis Other screening mammogram- Primary Other screening mammogram documented in this encounter Care Teams Parts Designer Relationship Specialty Start Date End Date Balaji Angulo MD PCP - General Internal Medicine 07/24/12 documented as of this encounter
--- OUTSIDE RECORDS SUMMARY | 2025-06-04 10:39 | XMS_ITS | Encounter Summary ---
Author Organization [facility] Address [address] [place] [address] Care Team Providers Care High Lift Operator Name Role Phone Unavailable Primary Care Provider Unavailabl e Encounter Details Date Type Department Care Team (Late st Contact Info) Description 08/08/2012 Orders Only [facility] Radiology [address] [place] [address] System, Provider Not In, [address] [place] [address] Social History Tobacco Use Types Packs/Day Years [...] Date/Time Associated Diagnosis Comments OUTSIDE IMAGES 08/08/2012 11:35 AM PLANNING RN documented in this encounter Results * Outside Images (08/08/2012 11:35 AM PLANNING RN) Anatomical Region Laterality Modality N/A Radiographic Charlene ging 08/08/2012 11:3 5 AM PLANNING RN Narrative 08/08/2012 11:35 AM PLANNING RN Historic images from [facility] exist and can be viewed by using the hyperlink to access [employer] p[employer]: HIP COMPLETE MIN 2V Procedure Note System, Provider Not In - 07/03/2020 Historic images from [facility] exist and can be viewed byusing the hyperlink to access [employer] p[employer]: HIP COMPLETE MIN 2V us Provider Not In System MD [facility] OR DERABLES Final Result documented in this encounter Visit Diagnoses Not on filedocumented in this encounter
--- OUTSIDE RECORDS SUMMARY | 2025-06-04 10:39 | XMS_ITS | Encounter Summary ---
Author Organization [facility] Address [address] [place] [address] Care Team Providers Care Urban Planning Teacher Name Role Phone Balaji Angulo MD Primary Care Provider Reason for Referral * Outpatient Services (Routine) - Closed Specialty Diagnoses / Procedures Referred By Bharti gomez Referred To Contact Diagnoses Other screening mammogram Procedures MAMMO DIGITIZED STUDY Balaji Angulo MD [address] [place] [address] Phone: tel: fax: Referral ID Status Reason Start Date Expiration Date Visits Re quested Visits Authorized [id number] Closed 08/14/2012 09/14/2013 1 1 HER SUPERVISOR Encounter Details Date Type Department Care Team (Latest Contact Info) Description 08/14/2012 Ancillary Orders [facility] Centralized Scheduling [address] [facility] [address] [place] [phone] Balaji Angulo MD [address] [place] [address] Other screening [...] on file Legal Sex Female 4:23 AM BUTCHER SUPERVISOR Gender Identity Not on file Sexual Orientation Not on file Occupation Industry Job Start Date Job End Date Not on file Not on file Not on file Not on file Not on file Not on file Not on file Not on file documented as of this encounter Plan of Treatment Not on file documented as of this encounter Results * MAMMO DIGITIZED STUDY (05/11/2010 3:47 PM BUTCHER SUPERVISOR) Narrative Tati Medeiros, RT - 08/14/2012 3:47 PM BUTCHER SUPERVISOR Order information only. Exam was auto-finalized. Procedure Note Tati Medeiros, RT - 08/14/2012 Order information only. Exam was auto-finalized. Balaji Angulo MD DIAGNOSTIC IMAGING ORD ERABLES Final Result documented in this encounter Visit Diagnoses Diagnosis Other screening mammogram- Primary Other screening mammogram documented in this encounter Care Teams Urban Planning Teacher Relationship Specialty Start Date End Date Balaji Angulo MD PCP - General Internal Medicine 07/24/12 documented as of this encounter
--- OUTSIDE RECORDS SUMMARY | 2025-06-04 10:39 | XMS_ITS | Encounter Summary ---
Author Organization [facility] Address [address] [place] [address] Care Team Providers Care Calciminer Name Role Phone Unavailable Primary Care Provider Unavailabl e Encounter Details Date Type Department Care Team (Late st Contact Info) Description 08/08/2012 Orders Only [facility] Radiology [address] [facility] [place] [address] System, Provider Not In, [address] [facility] [place] [address] Social History Tobacco Use Types Packs/Day Years [...] Date/Time Associated Diagnosis Comments OUTSIDE IMAGES 08/08/2012 11:40 AM SALESPERSON TERRAZZO TILES documented in this encounter Results * Outside Images (08/08/2012 11:40 AM SALESPERSON TERRAZZO TILES) Anatomical Region Laterality Modality N/A Radiographic Charlene ging 08/08/2012 11:4 0 AM SALESPERSON TERRAZZO TILES Narrative 08/08/2012 11:40 AM SALESPERSON TERRAZZO TILES Historic images from [facility] exist and can be viewed by using the hyperlink to access [employer] pacs: LUMBAR SPINE 2/3V Procedure Note System, Provider Not In - 07/03/2020 Historic images from [facility] exist and can be viewed byusing the hyperlink to access [employer] pacs: LUMBAR SPINE 2/3V us Provider Not In System MD [facility] OR DERABLES Final Result documented in this encounter Visit Diagnoses Not on filedocumented in this encounter
--- OUTSIDE RECORDS SUMMARY | 2025-06-04 10:39 | XMS_ITS | Encounter Summary ---
Author Organization [facility] Address [address] [place] [address] Care Team Providers Care Sample Weaver Name Role Phone Balaji Angulo MD Primary Care Provider Encounter Details Date Type Department Care Team (Latest Contact Info) Description 03/25/2009 Ancillary Orders [facility] [address] [facility] [address] [place] [address] Christina Salinas, PATHOLOGIST [address] [place], [place] [id number] Other (Abnormal) Findings on Radiological Examination of Breast Social History Tobacco Use Types Packs/Day Years Used Date Smoking Tobacco: Never Assessed Comments Unknown Sex and Gender Information Value Date Recorded Sex Assigned at Not on file Legal Sex Female 4:23 AM LINUX SERVER ENGINEER Gender Identity Not on file Sexual Orientation Not on file documented as of this encounter Plan of Treatment Not on file documented as of this encounter Results * MAMMO BREAST US LT (04/15/2009 9:27 AM LINUX SERVER ENGINEER) Anatomical Region Laterality Modality Breast Left Ultrasound Narrative 04/15/2009 12:47 PM LINUX SERVER ENGINEER Ultrasound report is included in the diagnostic mammogram report of 04/15/09. Procedure Note Teo Bentley MD - 04/17/2009 Ultrasound report is included in the diagnostic mammogram report of04/15/09. us External Provider [facility] MAMMO ORDERABLES Final Res ult documented in this encounter Visit Diagnoses Diagnosis Other (abnormal) findings on radiological examination of breast Other (abnormal) findings on radiological examination of breast documented in this encounter Care Teams Sample Weaver Relationship Specialty Start Date End Date Balaji Angulo MD PCP - General Internal Medicine 07/24/12 documented as of this encounter
--- OUTSIDE RECORDS SUMMARY | 2025-06-04 10:39 | XMS_ITS | Encounter Summary ---
Author Organization [facility] Address [address] [place] [address] Care Team Providers Care Clinical Program Director Name Role Phone Balaji Angulo MD Primary Care Provider Encounter Details Date Type Department Care Team (Latest Contact Info) Description 08/15/2013 Ancillary Orders [facility] Centralized Scheduling [address] [facility] [address] [place] [phone] Balaji Angulo MD [address] [facility] [address] [place] [address] Other screening mammogram (Primary Dx) Social History Tobacco Use Types Packs/Day Years Used Date Smoking Tobacco: Former Cigarettes 1 2.5 1 - 10/10/1974 Alcohol Use Standard Drinks/Week Comments No 0 (1 standard drink = 0.6 oz pur e alcohol) Comments No Sex and Gender Information Value Date Recorded Sex Assigned at Not on file Legal Sex Female 4:23 AM WATER RIGHTS SPECIALIST Gender Identity Not on file Sexual Orientation Not on file Occupation Industry Job Start Date Job End Date Not on file Not on file Not on file Not on file Not on file Not on file Not on file Not on file documented as of this encounter Plan of Treatment Not on file documented as of this encounter Results * MAMMO DIGITIZED STUDY (02/14/2007 10:49 AM CDT) Narrative Tati Medeiros, RT - 08/15/2013 9:49 AM WATER RIGHTS SPECIALIST Order information only. Exam was auto-finalized. Procedure Note Tati Medeiros, RT - 08/15/2013 Order information only. Exam was auto-finalized. us Balaji Angulo MD DIAGNOSTIC IMAGING ORD ERABLES Final Result documented in this encounter Visit Diagnoses Diagnosis Other screening mammogram- Primary Other screening mammogram documented in this encounter Care Teams Clinical Program Director Relationship Specialty Start Date End Date Balaji Angulo MD PCP - General Internal Medicine 07/24/12 documented as of this encounter
--- OUTSIDE RECORDS SUMMARY | 2025-06-04 10:39 | XMS_ITS | Encounter Summary ---
Author Organization [facility] Address [address] [place] [address] Care Team Providers Care Electrical Accessories I Assembler Name Role Phone Balaji Angulo MD Primary Care Provider Encounter Details Date Type Department Care Team (Late st Contact Info) Description 03/20/2009 Ancillary Orders [facility] Imaging External Read [address] [place] [address] Christina Salinas, VASCULAR SURGEON [address] [place] [address] Screening Mammogram Social History Tobacco Use Types Packs/Day Years Used Date Smoking Tobacco: Never Assessed Comments Unknown Sex and Gender Information Value Date Recorded Sex Assigned at Not on file Legal Sex Female 4:23 AM LUMBER CHECKER Gender Identity Not on file Sexual Orientation Not on file documented as of this encounter Plan of Treatment Not on file documented as of this encounter Results * MAMMO SCREENING BILAT (03/20/2009 2:18 PM CDT) Anatomical Region Laterality Modality Breast Bilateral Mammography Impressions 03/23/2009 9:49 AM CDT : The patient needs to return for left breast ultrasound. Narrative 03/23/2009 9:49 AM CDT BILATERAL SCREENING MAMMOGRAM: Bilateral CC and MLO views were obtained. Comparison was made with multiple prior exams dating back to 2003. There is dense breast tissue bilaterally. The distribution of the tissue on the right is stable and unremarkable. On the left, in the subareolar region, there is an area of well-defined nodularity which I believe represents a subtle interval change and I would recommend the patient return for sonographic evaluation. This mammogram was also analyzed by the Computer Aided Detection system (CAD), R2 ImageMicroSolarcker, Version 3.1. Procedure Note Lise Wang MD - 03/24/2009 BILATERAL SCREENING MAMMOGRAM: Bilateral CC and MLO views were obtained.Comparison was made with multiple prior exams dating back to 2003. There is dense breast tissue bilaterally. The distribution of the tissueon the right is stable and unremarkable. On the left, in the subareolar region, there is an area of well- definednodularity which I believe represents a subtle interval change and I wouldrecommend the patient return for sonographic evaluation. This mammogram was also analyzed by the Computer Aided Detection system(CAD), R2 ImageMicroSolarcker, Version 3.1. IMPRESSION: The patient needs to return for left breast ultrasound. us External Provider [facility] MAMMO ORDERABLES Final Res ult documented in this encounter Visit Diagnoses Diagnosis Screening mammogram Other screening mammogram documented in this encounter Care Teams Electrical Accessories I Assembler Relationship Specialty Start Date End Date Balaji Angulo MD PCP - General Internal Medicine 07/24/12 documented as of this encounter
--- OUTSIDE RECORDS SUMMARY | 2025-06-04 10:39 | XMS_ITS | Clinical Summary ---
Author Organization [facility] Address [address] [place] [address] Care Team Providers Care Hand Cementer Name Role Phone Unavailable Primary Care Provider Unavailabl e Social History Tobacco Use Types Packs/Day Years Used Date Smoking Tobacco: Never Assessed Comments Unknown Sex and Gender Information Value Date Recorded Sex Assigned at Not on file Legal Sex Female 11:03 AM CDT Gender Identity Not on file Sexual Orientation Not on file Plan of Treatment Not on file
--- OUTSIDE RECORDS SUMMARY | 2025-06-04 10:39 | XMS_ITS | Encounter Summary ---
Author Organization [facility] Address [address] [place] [address] Care Team Providers Care Account Executive Name Role Phone Balaji Angulo MD Primary Care Provider Reason for Referral * Outpatient Services (Routine) - Closed Specialty Diagnoses / Procedures Referred By Bharti gomez Referred To Contact Diagnoses Back pain Procedures MRI LUMBAR WO CONTRAST Evelyne Suarez MD [address] [facility] [email or web address], [id number] fax: [employer] [facility] [address] [facility] [address] [place] [address] Phone: tel: fax: Referral ID Status Reason Start Date Expiration Date V isits Requested Visits Authorized [id number] Closed [facility] CTS to Schedule (SGF) 09/05/2013 10/06/2014 1 1 Encounter Details Date Type Department Care Team (Latest Contact Info) Description 09/05/2013 Ancillary Orders [facility] Centralized Scheduling [address] [facility] [address] [place] [address] Evelyne Suarez MD [address] [facility] [email or web address], [id number] Back pain (Primary Dx) Social History Tobacco Use Types Packs/Day Years Used Date Smoking Tobacco: Former Cigarettes 1 2.5 1 - 10/10/1974 Alcohol Use Standard Drinks/Week Comments No 0 (1 standard drink = 0.6 oz pur e alcohol) Comments No Sex and Gender Information Value Date Recorded Sex Assigned at Not on file Legal Sex Female 4:23 AM OPTO MECHANICAL TECHNICIAN Gender Identity Not on file Sexual Orientation Not on file Occupation Industry Job Start Date Job End Date Not on file Not on file Not on file Not on file Not on file Not on file Not on file Not on file documented as of this encounter Plan of Treatment Not on file documented as of this encounter Results * MRI LUMBAR WO CONTRAST (09/10/2013 9:54 AM CDT) Anatomical Region Laterality Modality Spine Magnetic Resonan ce 09/10/2013 9:15 AM CDT Impressions 09/13/2013 1:05 PM CDT IMPRESSION: See report below. Exam: MRI LUMBAR WO CONTRAST Date/Time of Exam: Sep 10, 2013 09:54:26 AM Reason For Exam: Backache, unspecified. Technique: MRI of the lumbar spine was performed without the administration of intravenous contrast. Findings: Multilevel degenerative changes and a levoscoliosis. No acute osseous abnormality. Normal distal thoracic cord and conus. L1-L2: Unremarkable. L2-L3: Unremarkable. L3-L4: Advanced disc and endplate degenerative changes, greater on the right. Moderate disc bulge, facet degenerative changes and mild central canal and moderate left and moderate to severe right foraminal narrowing and borderline mass effect on the right L3 nerve root. L4-L5: Mild disc space height loss and fatty endplate marrow degenerative signal change, greater on the right. Mild disc bulge and advanced bilateral facet degenerative changes and mild central canal stenosis. The disc extends into the right foramen and abuts the right L4 nerve root. Moderate left foraminal stenosis. L5-S1: Mild disc bulge, a few punctate annular tears and borderline mass effect on the left L5 nerve root. Moderate to severe facet degenerative changes. Impression: 1. No acute osseous abnormality. 2. Advanced degenerative changes at L3-L4 and a bulging disc which may affect the right L3 nerve root and contributes to mild to moderate central canal stenosis. 3. Mild central canal stenosis at L4-L5 and a bulging disc which abuts the right L4 nerve root and contributes to moderate left foraminal narrowing. 4. The disc bulge at L5-S1 may affect the left L5 nerve root. KBS/arron - uploaded from [employer] - Narrative Procedure Note Stiven Peralta MD - 09/13/2013 IMPRESSION IMPRESSION: See report below. Exam: MRI LUMBAR WO CONTRAST Date/Time of Exam: Sep 10, 2013 09:54:26 AM Reason For Exam: Backache, unspecified. Technique: MRI of the lumbar spine was performed without the administration of intravenous contrast. Findings: Multilevel degenerative changes and a levoscoliosis. No acute osseous abnormality. Normal distal thoracic cord and conus. L1-L2: Unremarkable. L2-L3: Unremarkable. L3-L4: Advanced disc and endplate degenerative changes, greater on the right. Moderate disc bulge, facet degenerative changes and mild central canal and moderate left and moderate to severe right foraminal narrowing and borderline mass effect on the right L3 nerve root. L4-L5: Mild disc space height loss and fatty endplate marrow degenerative signal change, greater on the right. Mild disc bulge and advanced bilateral facet degenerative changes and mild central canal stenosis. The disc extends into the right foramen and abuts the right L4 nerve root. Moderate left foraminal stenosis. L5-S1: Mild disc bulge, a few punctate annular tears and borderline mass effect on the left L5 nerve root. Moderate to severe facet degenerative changes. Impression: 1. No acute osseous abnormality. 2. Advanced degenerative changes at L3-L4 and a bulging disc which may affect the right L3 nerve root and contributes to mild to moderate central canal stenosis. 3. Mild central canal stenosis at L4-L5 and a bulging disc which abuts the right L4 nerve root and contributes to moderate left foraminal narrowing. 4. The disc bulge at L5-S1 may affect the left L5 nerve root. KBS/eaw - uploaded from [employer] - us External Provider [facility] MR ORDERABLES Final Res ult documented in this encounter Visit Diagnoses Diagnosis Back pain- Primary Backache, unspecified Back pain Backache, unspecified documented in this encounter Care Teams Account Executive Relationship Specialty Start Date End Date Balaji Angulo MD PCP - General Internal Medicine 07/24/12 documented as of this encounter"
--- OUTSIDE RECORDS SUMMARY | 2025-06-04 10:39 | XMS_ITS | Encounter Summary ---
Author Organization [facility] Address [address] [place] [address] Care Team Providers Care Hand Crocheter Name Role Phone Unavailable Primary Care Provider Unavailabl e Encounter Details Date Type Department Care Team (Late st Contact Info) Description 08/06/2009 Orders Only [facility] Radiology [address] [facility] [place] [address] System, Provider Not In, [address] [facility] [place] [address] Social History Tobacco Use Types Packs/Day Years [...] Priority Date/Time Associated Diagnosis Comments OUTSIDE IMAGES 08/06/2009 9:06 AM SLEEVER documented in this encounter Results * Outside Images (08/06/2009 9:06 AM SLEEVER) Anatomical Region Laterality Modality N/A Radiographic Charlene ging 08/06/2009 9:06 AM SLEEVER Narrative 08/06/2009 9:06 AM SLEEVER Historic images from [facility] exist and can be viewed by using the hyperlink to access [employer] pacs: XR 2V CHEST Procedure Note System, Provider Not In - 07/07/2020 Historic images from [facility] exist and can be viewed byusing the hyperlink to access [employer] pacs: XR 2V CHEST us Provider Not In System MD [facility] OR DERABLES Final Result documented in this encounter Visit Diagnoses Not on filedocumented in this encounter
--- OUTSIDE RECORDS SUMMARY | 2025-06-04 10:39 | XMS_ITS | Encounter Summary ---
Author Organization [facility] Address [address] [place] [address] Care Team Providers Care Pellet Post Inspector Name Role Phone Balaji Angulo MD Primary Care Provider Encounter Details Date Type Department Care Team (Latest Contact Info) Description 09/05/2019 Ancillary Orders [facility] Centralized Scheduling [address] [place] [address] Balaji Angulo MD [address] [facility] [address] [place] [phone] Pain and swelling of lower extremity, right Social History Tobacco Use Types Packs/Day Years Used Date Smoking Tobacco: Former Cigarettes 1 2.5 1 - 10/10/1974 Alcohol Use Standard Drinks/Week Comments No 0 (1 standard drink = 0.6 oz pur e alcohol) Comments No Sex and Gender Information Value Date Recorded Sex Assigned at Not on file Legal Sex Female 4:23 AM OPERATIONS GENERAL AGENT Gender Identity Not on file Sexual Orientation Not on file Occupation Industry Job Start Date Job End Date Not on file Not on file Not on file Not on file Not on file Not on file Not on file Not on file COVID-19 Exposure Response Date Recorded In the last month, have you been in contact with someone who was confirmed or suspected to have Coronavirus / COVID-19? No / Unsure 09/05/2019 11:03 AM CDT documented as of this encounter Plan of Treatment Not on file documented as of this encounter Visit Diagnoses Diagnosis Pain and swelling of lower extremity, right documented in this encounter Care Teams Pellet Post Inspector Relationship Specialty Start Date End Date Balaji Angulo MD PCP - General Internal Medicine 07/24/12 documented as of this encounter
--- OUTSIDE RECORDS SUMMARY | 2025-06-04 10:39 | XMS_ITS | Encounter Summary ---
Author Organization [facility] Address [address] [place] [address] Care Team Providers Care Senior Test Analyst Name Role Phone Balaji Angulo MD Primary Care Provider Encounter Details Date Type Department Care Team (Latest Contact Info) Description 04/15/2009 Ancillary Orders [facility] [address] [facility] [address] [place] [address] Christina Salinas, FORESTRY CONTRACTOR [address] [place], [place] [address] Other (Abnormal) Findings on Radiological Examination of Breast Social History Tobacco Use Types Packs/Day Years Used Date Smoking Tobacco: Never Assessed Comments Unknown Sex and Gender Information Value Date Recorded Sex Assigned at Not on file Legal Sex Female 4:23 AM BOILER TESTING TECHNICIAN Gender Identity Not on file Sexual Orientation Not on file documented as of this encounter Plan of Treatment Not on file documented as of this encounter Results * MAMMO UNILATERAL DIAG LEFT (04/15/2009 9:40 AM BOILER TESTING TECHNICIAN) Anatomical Region Laterality Modality Breast Left Mammography Narrative 04/15/2009 12:47 PM BOILER TESTING TECHNICIAN UNILATERAL DIAGNOSTIC MAMMOGRAM - LEFT BREAST - AND LEFT BREAST ULTRASOUND: The patient returns for further evaluation of an apparent left subareolar nodule. It came to our attention that the patient has an inverted nipple on the left which fluctuates as to how deep it inverts. Initially, ultrasound was undertaken which was negative. The nipple is simply identified. We placed a BB on the nipple and obtained left-sided CC views. One of the views was with the nipple in profile and the other was with the nipple en face. Those images nicely show the previously identified nodule to represent the nipple. The patient received a result/recommendation letter. SUMMARY: Additional workup on the left is negative and is simply shown to represent the nipple which must have been greatly inverted at the time of the screening. No suspicious findings for malignancy and she can return to bilateral screening in one year's time. This was discussed with the patient. Procedure Note Teo Bentley MD - 04/17/2009 UNILATERAL DIAGNOSTIC MAMMOGRAM - LEFT BREAST - AND LEFT BREASTULTRASOUND: The patient returns for further evaluation of an apparent left subareolarnodule. It came to our attention that the patient has an inverted nipple on theleft which fluctuates as to how deep it inverts. Initially, ultrasoundwas undertaken which was negative. The nipple is simply identified. We placed a BB on the nipple and obtained left-sided CC views. One of theviews was with the nipple in profile and the other was with the nipple enface. Those images nicely show the previously identified nodule torepresent the nipple. The patient received a result/recommendation letter. SUMMARY: Additional workup on the left is negative and is simply shown torepresent the nipple which must have been greatly inverted at the time ofthe screening. No suspicious findings for malignancy and she can returnto bilateral screening in one year's time. This was discussed with thepatient. us External Provider [facility] MAMMO ORDERABLES Final Res ult documented in this encounter Visit Diagnoses Diagnosis Other (abnormal) findings on radiological examination of breast Other (abnormal) findings on radiological examination of breast documented in this encounter Care Teams Senior Test Analyst Relationship Specialty Start Date End Date Balaji Angulo MD PCP - General Internal Medicine 07/24/12 documented as of this encounter
--- OUTSIDE RECORDS SUMMARY | 2025-06-04 10:39 | XMS_ITS | Encounter Summary ---
Author Organization [facility] Address [address] [place] [address] Care Team Providers Care Child Care Center Assistant Director Name Role Phone Balaji Angulo MD Primary Care Provider Reason for Referral * Outpatient Services (Routine) - Closed Specialty Diagnoses / Procedures Referred By Bharti gomez Referred To Contact Diagnoses Screening mammogram Procedures MAMMO SCREENING BILAT Balaji Angulo MD [address] [place] [address] Phone: tel: fax: Referral ID Status Reason Start Date Expiration Date Visits Re quested Visits Authorized [id number] Closed 05/14/2010 11/10/2010 1 1 CILOR Encounter Details Date Type Department Care Team (Late st Contact Info) Description 05/14/2010 Ancillary Orders [facility] Imaging External Read [address] [place] [address] Balaji Angulo MD [address] [place] [id number] Screening mammogram Social History Tobacco Use Types Packs/Day Years Used Date Smoking Tobacco: Former Alcohol Use Standard Drinks/Week Comments No 0 (1 standard drink = 0.6 oz pur e alcohol) Comments Unknown Sex and Gender Information Value Date Recorded Sex Assigned at Not on file Legal Sex Female 4:23 AM COUNCILOR Gender Identity Not on file Sexual Orientation Not on file documented as of this encounter Plan of Treatment Not on file documented as of this encounter Results * MAMMO SCREENING BILAT (05/14/2010 1:36 PM COUNCILOR) Anatomical Region Laterality Modality Breast Bilateral Mammography Addenda Addendum by Teo Bentley MD on 07/02/2010 4:11 PM COUNCILOR ADDENDUM TO SCREENING MAMMOGRAM OF 05/11/10: Previous [facility] study dated 02/14/07 now available for review. The current findings are stable and yearly exams are recommended. *Addendum dictated on 07/01/10 CLARA/arron Narrative 05/24/2010 8:59 AM COUNCILOR BILATERAL SCREENING MAMMOGRAM WITH CAD: The patient's history sheet reports that the patient's had films 03/19/2009 at [facility] and apparently also had a [facility] study. Those are unavailable for review. Moderately dense nodular fibroglandular tissue bilaterally will need to be compared with the prior studies. This mammogram was also analyzed by the Computer Aided Detection System (CAD), Seculert ImageChecker, Version 3.1. SUMMARY: Incomplete evaluation with prior studies necessary. An addendum would be issued. Jose Alfredo Procedure Note Teo Bentley MD - 07/02/2010 BILATERAL SCREENING MAMMOGRAM WITH CAD: The patient's history sheet reports that the patient's had films 03[facility]19[facility]2009t [facility]. Moderately dense nodular fibroglandular tissue bilaterally will need to becompared with the prior studies. This mammogram was also analyzed by the Computer Aided Detection System(CAD), R2 ImageChecker, Version 3.1. SUMMARY: Incomplete evaluation with prior studies necessary. An addendum would beissued. Jose Alfredo Balaji Angulo MD MAMMO ORDERABLES Edite d Result - Final documented in this encounter Visit Diagnoses Diagnosis Screening mammogram Other screening mammogram documented in this encounter Care Teams Child Care Center Assistant Director Relationship Specialty Start Date End Date Balaji Angulo MD PCP - General Internal Medicine 07/24/12 documented as of this encounter
--- OUTSIDE RECORDS SUMMARY | 2025-06-04 10:39 | XMS_ITS | Encounter Summary ---
Author Organization [facility] Address [address] [place] [address] Care Team Providers Care Application Integration Specialist Name Role Phone Balaji Angulo MD Primary Care Provider Encounter Details Date Type Department Care Team (Latest Contact Info) Description 03/23/2007 Outpatient Historical [facility] [address] [facility] [address] [place] [address] Art Vázquez MD NO ADDRESS ON FILE Other Sign and Symptom in Breast (Primary Dx) Social History Tobacco Use Types Packs/Day Years Used Date Smoking Tobacco: Never Assessed Comments Unknown Sex and Gender Information Value Date Recorded Sex Assigned at Not on file 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
--- OUTSIDE RECORDS SUMMARY | 2025-06-04 10:39 | XMS_ITS | Encounter Summary ---
Author Organization [facility] Address [address] [place] [address] Care Team Providers Care Vision Teacher Name Role Phone Balaji Angulo MD Primary Care Provider Encounter Details Date Type Department Care Team (Latest Contact Info) Description 08/15/2013 Ancillary Orders [facility] Centralized Scheduling [address] [place] [id number] Balaji Angulo MD [address] [address] [place] [address] Other screening mammogram (Primary Dx) Social History Tobacco Use Types Packs/Day Years Used Date Smoking Tobacco: Former Cigarettes 1 2.5 1 - 10/10/1974 Alcohol Use Standard Drinks/Week Comments No 0 (1 standard drink = 0.6 oz pur e alcohol) Comments No Sex and Gender Information Value Date Recorded Sex Assigned at Not on file 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 Exam was auto-finalized. Procedure Note Tati Medeiros, RT - 08/15/2013 Order information only. Exam was auto-finalized. us Balaji Angulo MD DIAGNOSTIC IMAGING ORD ERABLES Final Result documented in this encounter Visit Diagnoses Diagnosis Other screening mammogram- Primary Other screening mammogram documented in this encounter Care Teams Vision Teacher Relationship Specialty Start Date End Date Balaji Angulo MD PCP - General Internal Medicine 07/24/12 documented as of this encounter
[2025-06-04 12:13] LABS: Hematocrit 37.9 % (36-47); Hemoglobin 11.50 g/dL (11.27-16.99); Mean Corpuscular HGB Conc 30.3 g/dL (30-55); Mean Corpuscular Hemoglobin 27.5 pg (27-33); Mean Corpuscular Volume 90.7 fl (85-98); Nucleated Red Blood Cells % 0 %; Platelet Count 305 10^3/cmm (157-399); Red Blood Count 4.18 10^6/uL (3.85-5.65); White Blood Count 19.29 10^3/uL (3.29-11.43)
[2025-06-04 12:27] LABS: Glucose Urine UA Negative (Normal); Nitrate Urine Negative (Negative); Specific Gravity, Urine 1.020 (1.005-1.030)
[2025-06-04 12:46] LABS: UA Slide Review UA Slide Review Perf
[2025-06-04 13:12] LABS: Alanine Aminotransferase < 5 U/L (0-33); Albumin Level 2.8 g/dL (3.5-5.2); Alkaline Phosphatase 150 U/L (35-105); Anion Gap 23.6 (5-19); Aspartate Amino Transferase 10 U/L (0-32); Blood Urea Nitrogen 48 mg/dL (8-23); Calcium 10.8 mg/dL (8.5-10.5); Carbon Dioxide 18 mmol/L (22-29); Chloride 98 mmol/L (98-107); Globulin 4.0 g/dL (1.3-4.6); Glucose 94 mg/dL (65-115); Osmolality Calculated 292 mOsm/kg (285-295); Potassium 4.6 mmol/L (3.5-5.1); Sodium 135 mmol/L (136-145); Total Protein 6.8 g/dL (6.6-8.7)
[2025-06-04 13:13] LABS: Lactate (Lactic Acid level) 1.6 mmol/L (0.5-2.2)
[2025-06-04 13:19] LABS: Procalcitonin 0.29 ng/mL (0-0.5)
[2025-06-04 13:21] LABS: Respiratory Syncytial Virus Ce NEGATIVE (Negative); SARS-CoV-2 PCR NEGATIVE (Negative)
--- NOTE | 2025-06-04 13:44 | ED_ITS ---
HPI - Female Genitourinary 2 General: Chief complaint: Urogenital-Female Stated complaint: onc sent, back pain, confusion Time Seen by Provider: 06/04/25 11:34 History of Present Illness: 84-year-old female with a history of tanesha liliana carcinoma, degenerative disc disease, history of radiation therapy, hypothyroidism, cardiomegaly, asthma, hypothyroidism, hypertension, hyperlipidemia and diabetes who presents emergency room from oncology clinic with concerns for acute renal insufficiency and hypercalcemia. She has been having some flank pain. Family were concern for urinary tract infection. No known fevers. She has had incontinence of urine. No dysuria. No altered mental status. No focal motor deficits. No fevers. Related Data Home Medications ?Medication ?Instructions ?Recorded ?Confirmed aspirin 81 mg tablet 81 mg PO .every other day 06/04/25 Previous Rx's ?Medication ?Instructions ?Recorded blood sugar diagnostic #100 ea 03/23/23 blood sugar diagnostic (Blood #50 ea 03/24/23 Glucose Test strips) budesonide-formoterol HFA 160 2 puff inhalation BID #1 0.2 grams 07/16/24 mcg-4.5 mcg/actuation aerosol inhaler (Symbicort) escitalopram oxalate 10 mg tablet 5 mg (1/2 x 10 mg) P O DAILY #90 07/16/24 (Lexapro) tabs metoprolol tartrate 50 mg tablet 75 mg (1.5 x 50 mg) . Route BID 10/02/24 #240 tabs losartan 50 mg tablet 50 mg PO BID #180 tabs 01/22 atorvastatin 20 mg tablet 20 mg PO DAILY #90 tabs 04/12 02/03 hydrochlorothiazide 12.5 mg tablet 12.5 mg PO DAILY hi gh blood 04/29/25 pressure #90 tabs levothyroxine 75 mcg tablet See Rx Instructions .Route 04/29/25 .COMPLEX #90 tabs metformin 500 mg tablet See Rx Instructions .Route 1 06/29/24 .COMPLEX #180 tabs amoxicillin 875 mg tablet 875 mg PO BID 7 days #14 tab s 05/12/25 lidocaine HCl 2 % mucosal solution 5 ml mucous membran e TID PRN pain 05/28/25 (Lidocaine Viscous) #80 mL prochlorperazine maleate 10 mg 10 mg PO Q8H PRN nausea and 05/28/25 tablet (Compazine) vomiting 14 days #42 tabs Allergies Allergy/AdvReac Type Severity Reaction Status Date / Time No Known Allergies Allergy Verified 06/04/25 10:59 Review of Systems 2 Narrative: Constitutional symptoms: Negative except as documented in HPI. Skin symptoms: Negative except as documented in HPI. Eye symptoms: Negative except as documented in HPI. ENMT symptoms: Negative except as documented in HPI. Respiratory symptoms: Negative except as documented in HPI. Cardiovascular symptoms: Negative except as documented in HPI. Gastrointestinal symptoms: Negative except as documented in HPI. Genitourinary symptoms: Negative except as documented in HPI. Musculoskeletal symptoms: Negative except as documented in HPI. Neurologic symptoms: Negative except as documented in HPI. Psychiatric symptoms: Negative except as documented in HPI. Endocrine symptoms: Negative except as documented in HPI. PFSH ED 2 PFSH: Medical History (Updated 06/04/25 @ 15:33 by Brittanie Saeed MD) Upper respiratory tract infection, unspecified type HX: breast cancer Left hip pain Inverted nipple Enrolled in chronic care management Nipple discharge Environmental and seasonal allergies Transaminitis DDD (degenerative disc disease) DJD (degenerative joint disease) Breast cancer Leg swelling Hx of radiation therapy Hypothyroidism Cardiomegaly Ductal carcinoma in situ (DCIS) of left breast Asthma Hyperthyroidism Hypertension Hyperlipidemia Encounter for long-term (current) use of NSAIDs Encounter for opiate analgesic use agreement Chronic low back pain Bursitis of right knee Diabetes Surgical History Hx of total knee replacement Hx of lumpectomy Hx of cataract extraction History of eyelid surgery Hx of breast surgery Hx of hemorrhoidectomy Hx of total shoulder replacement Status post right knee replacement Family History Father No problems noted. Mother CAD (coronary artery disease), Onset Age: 50 Stroke Brother Stroke Cancer Lung disease Denies family history of Diabetes Clotting disorder Dementia Chronic kidney disease (CKD) Suicide Anesthesia complication Bleeding disorder Social History Smoking and tobacco/nicotine status: never used tobacco/nicotine Second hand smoke exposure: No Alcohol intake: never Substance/Drug Use: never Physical Exam 2 Narrative: EXAM NARRATIVE: General: Alert, no acute distress. Skin: Warm, dry. Head: Normocephalic, atraumatic. Neck: Supple, trachea midline. Eye: Extraocular movements are intact. Ears, nose, mouth and throat: mucosa moist. Cardiovascular: Regular, Normal peripheral perfusion. Respiratory: Lungs are clear to auscultation, respirations are non-labored, breath sounds are equal, Symmetrical chest wall expansion. Gastrointestinal: Soft, Nontender, Non distended Musculoskeletal: Normal ROM, no deformity. Neurological: Alert and oriented, No focal neurological deficit observed. Psychiatric: Cooperative, appropriate mood & affect. Course 2 Vital Signs: Vital signs: Vital Signs Temperature 97.6 F 06/04/25 12:00 Pulse Rate 95 06/04/25 15:23 Respiratory Rate 16 06/04/25 15:23 Blood Pressure 98/74 06/04/25 15:23 Pulse Oximetry 98 06/04/25 15:23 Oxygen Delivery Me thod Room Air 06/04/25 10:49 MDM - Female Medical Decision Making Medical decision making Patient's reason for coming to the emergency room: Flank pain, abnormal labs in clinic Social determinants: Daughter present I reviewed the patient's medical record. 84-year-old female with a history of ductal carcinoma, degenerative disc disease, history of radiation therapy, hypothyroidism, cardiomegaly, asthma, hypothyroidism, hypertension, hyperlipidemia and diabetes . Patient was seen in oncology clinic earlier today. Lab was done because of flank pain. She has acute renal insufficiency and hypercalcemia. Sent to the emergency room. I reviewed the patient's current home meds Alternate historians: None Differential diagnosis including but not limited to and based on the above HPI, review of systems and physical exam: In this patient with flank pain would have concern for: Ureterolithiasis. Urinary tract infection. Appendicitis. Cholecystitis. Musculoskeletal / back pain. Pyelonephritis. Orders placed to evaluate differential diagnosis based on the above differential, HPI and physical exam Lab Review: Laboratory results were reviewed and interpreted by myself the emergency room physician. Stable leukocytosis. No anemia. Patient does have acute renal insufficiency with a BUN and creatinine of 48 and 1.4. Calcium is elevated at 10.8. Urinalysis is negative for infection. CT of the abdomen pelvis without contrast: Extensive osteolytic metastatic bone disease. Nodules at the lung bases. 10 mm focal attenuation in the liver that might also be metastatic. Other findings as below. Radiology review Assessment of risk: Level of risk: High risk patient. Elderly. Possible recurrence of cancer with metastatic disease. Hospitalization considerations: Patient is being admitted per Dr. Houser's request. Fluids. Reexamination: Patient remained stable. No increased work of breathing. No altered mental status. No focal motor deficits. Consultation: I spoke with Dr. Houser who saw the patient earlier today. He is her oncologist. He recommends admission and fluids. Consultation: I spoke with Dr. Floyd who is on-call for the hospital service who agrees to admission Assessment and plan: Dehydration Acute on chronic renal insufficiency Hypercalcemia ? 1.5 L normal saline bolus in the emergency room. -I discussed the patient with the hospitalist on-call who is admitting the patient. - Discussed findings and plan with patient. Answered any questions. - All laboratory values were reviewed and interpreted personally by myself, the ER physician - All imaging was reviewed and interpreted personally by myself, the ER physician. - Evaluation and treatment of this problem were appropriate in the emergency setting Lab Data 06/04/25 11:50 06/04/25 12:43 Radiology Impressions Abdomen/Pelvis CT 06/04/25 13:44 IMPRESSION: 1. Extensive osteolytic metastatic bone disease. 2. Small nodules at the lung bases. Metastatic sites not excluded. 3. Moderate size hiatal hernia. 4. Focal area of decreased attenuation RIGHT lobe of the liver measures 10 mm. Metastatic site not excluded. Ultrasound may provide additional information. 5. Large RIGHT renal cyst. 6. No renal obstruction. Nonobstructing 6 mm calcification in the LEFT renal pelvis. 7. Diverticulosis without acute diverticulitis. 8. Tejeda catheter present in a nondistended urinary bladder. Laboratory Results WBC 19.29 10^3/uL (3.29-11.43) H 06/04/25 11:50 RBC 4.18 10^6/uL (3.85-5.65) 06/04/25 11:50 Hgb 11.50 g/dL (11.27-16.99) 06/04/25 11:50 Hct 37.9 % (36-47) 06/04/25 11:50 MCV 90.7 fl (85-98) 06/04/25 11:50 MCH 27.5 pg (27-33) 06/04/25 11:50 MCHC 30.3 g/dL (30-55) 06/04/25 11:50 RDW 15.5 % (12.1-15.1) H 06/04/25 11:50 Plt Count 305 10^3/cmm (157-399) 06/04/25 11:50 MPV 10.7 fL (7.4-10.4) H 06/04/25 11:50 Neut % (Auto) 82.6 % 06/04/25 11:50 Lymph % (Auto) 9.4 % 06/04/25 11:50 [place] % (Auto) 6.3 % 06/04/25 11:50 Eos % (Auto) 0.8 % 06/04/25 11:50 Baso % (Auto) 0.3 % 06/04/25 11:50 Neut # (Auto) 15.93 10^3/uL (1.8-7.7) H 06/04/25 11:50 Lymph # (Auto) 1.8 10^3/uL (0.8-4.8) 06/04/25 11:50 [place] # (Auto) 1.2 10^3/uL (0.2-0.9) H 06/04/25 11:50 Eos # (Auto) 0.2 10^3/uL (0.0-0.8) 06/04/25 11:50 Baso # (Auto) 0.1 10^3/uL (0.0-0.1) 06/04/25 11:50 Nucleated RBC % (auto) 0 % 06/04/25 11:50 Nucleated RBCs # 0.0 /100WBC 06/04/25 11:50 Sodium 135 mmol/L (136-145) L 06/04/25 12:43 Potassium 4.6 mmol/L (3.5-5.1) 06/04/25 12:43 Chloride 98 mmol/L (98-107) 06/04/25 12:43 Carbon Dioxide 18 mmol/L (22-29) L 06/04/25 12:43 Anion Gap 23.6 (5-19) H 06/04/25 12:43 BUN 48 mg/dL (8-23) H 06/04/25 12:43 Creatinine 1.4 mg/dL (0.5-0.9) H 06/04/25 12:43 GFR Calculation Not Reportable 06/04/25 12:43 Glucose 94 mg/dL (65-115) 06/04/25 12:43 Calculated Osmolality 292 mOsm/kg (285-295) 06/04/25 12:43 Lactic Acid Cancelled 06/04/25 11:50 Lactate 1.6 mmol/L (0.5-2.2) 06/04/25 12:43 Calcium 10.8 mg/dL (8.5-10.5) H 06/04/25 12:43 Total Bilirubin 0.4 mg/dL (0.15-1.2) 06/04/25 12:43 AST 10 U/L (0-32) 06/04/25 12:43 ALT < 5 U/L (0-33) 06/04/25 12:43 Alkaline Phosphatase 150 U/L (35-105) H 06/04/25 12:43 C-Reactive Protein 74.0 mg/L (0.0-4.9) H 06/04/25 12:43 Total Protein 6.8 g/dL (6.6-8.7) 06/04/25 12:43 Albumin 2.8 g/dL (3.5-5.2) L 06/04/25 12:43 Globulin 4.0 g/dL (1.3-4.6) 06/04/25 12:43 Procalcitonin 0.29 ng/mL (0-0.5) 06/04/25 12:43 Urine Color Yellow (Yellow) 06/04/25 12:09 Urine Appearance Clear (CLEAR) 06/04/25 12:09 Urine pH 5.0 (5-7) 06/04/25 12:09 Ur Specific [place] 1.020 (1.005-1.030) 06/04/25 12:09 Urine Protein Trace (Negative) A 06/04/25 12:09 Urine Glucose (UA) Negative (Normal) 06/04/25 12:09 Urine Ketones 1+ (Negative) H 06/04/25 12:09 Urine Blood Negative (Negative) 06/04/25 12:09 Urine Nitrate Negative (Negative) 06/04/25 12:09 Urine Bilirubin Negative (Negative) 06/04/25 12:09 Urine Urobilinogen 1.0 mg/dL (Negative) 06/04/25 12:09 Ur Leukocyte Esterase Negative (Negative) 06/04/25 12:09 Urine RBC 3-5 /hpf (0-2) 06/04/25 12:09 Urine WBC 0-5 /hpf (0-5) 06/04/25 12:09 Ur Squamous Epith Cells 0-5 /hpf (0-5) 06/04/25 12:09 Amorphous Sediment Not Reportable 06/04/25 12:09 Urine Bacteria None seen /hpf (NONE) 06/04/25 12:09 Hyaline Casts 17.77 /lpf 06/04/25 12:09 Influenza A (PCR) Negative (Negative) 06/04/25 12:23 Influenza Type B (PCR) Negative (Negative) 06/04/25 12:23 RSV (PCR) Negative (Negative) 06/04/25 12:23 SARS-CoV-2 (PCR) Negative (Negative) 06/04/25 12:23 All radiology interpretation(s) finalized by discharge Discharge Plan Discharge Patient Disposition: Placed in Observation Clinical Impression: Dehydration, Acute on chronic renal insufficiency, Hypercalcemia Coding Level of Care Code ED Straightedge Worker for Natalyg Destiney
--- NOTE | 2025-06-04 13:44 | CT_ITS ---
WS: [id number] CT ABDOMEN AND PELVIS NONCONTRAST HISTORY: flank pain, history of breast cancer. TECHNIQUE: Imaging performed through the abdomen and pelvis. Coronal and sagittal reformats are submitted. All CT scans at [facility] use at least one of these dose optimization techniques: automated exposure control; mA and/or kV adjustment per patient size (includes targeted exams where dose is matched to clinical indication); or iterative reconstruction. DLP: 328.04 mGy.cm COMPARISON: CT 03/07/2022 chest Lower thorax: Very small nodules at the lung bases measuring approximately 2 to 3 mm. These may have been present on prior studies but obscured by overlying airspace disease. Heart is normal size. Moderate size hiatal hernia. Liver: Granulomatous disease within the liver. Focal area of decreased attenuation in the RIGHT lobe of the liver measures 10 mm. Focal fatty sparing along the falciform ligament. Gallbladder: Normal gallbladder. No pericholecystic fluid or cholelithiasis. No gallbladder wall thickening. Pancreas: Diffuse pancreatic atrophy. Spleen: Normal spleen with granulomata. Adrenal glands: Normal. No mass. Right kidney: Mild perinephric stranding. 6.9 cm cyst RIGHT kidney. No renal obstruction. Left kidney: Nonobstructing central renal calcification measures 6 mm. Aorta: Mild atherosclerosis abdominal aorta with no aneurysm. No free fluid, intraperitoneal air or significant lymphadenopathy. GI tract: Nondistended stomach. No small bowel or colon obstruction. Sigmoid diverticulosis without acute diverticulitis. Abdominal wall: Small umbilical hernia contains fat only. Pelvis: Tejeda catheter present in a nondistended urinary bladder. Atrophic uterus. Osseous structures: Extensive osteolytic changes throughout the visualized bones of the abdomen and pelvis consistent with metastatic disease. Some of the largest lytic lesions with bone destruction are within the pelvis. No pathological fractures are identified. One of the largest lesions is in the RI GHT ilium measuring 2.1 cm with associated soft tissue. There is extensive multilevel lytic disease within the lumbar vertebral bodies and T11. Lytic lesions in the sacrum. No cord compression. Central foraminal stenosis at L4-5 is probably degenerative. Disc protrusion in the RIGHT foramen. CT/CT abdomen pelvis wo con [id number] IMPRESSION: 1. Extensive osteolytic metastatic bone disease. 2. Small nodules at the lung bases. Metastatic sites not excluded. 3. Moderate size hiatal hernia. 4. Focal area of decreased attenuation RIGHT lobe of the liver measures 10 mm. Metastatic site not excluded. Ultrasound may provide additional information. 5. Large RIGHT renal cyst. 6. No renal obstruction. Nonobstructing 6 mm calcification in the LEFT renal p rajesh. 7. Diverticulosis without acute diverticulitis. 8. Tejeda catheter present in a nondistended urinary bladder.
--- NOTE | 2025-06-04 18:00 | PC.NURSE ---
Patient and family updated. Awaiting room assignment
--- NOTE | 2025-06-04 19:20 | PC.NURSE ---
Report called to med-surg. All questions and concerns were addressed.
--- NOTE | 2025-06-04 19:39 | PM.HP ---
Providers/Chief Complaint Admitting Physician: Bernardino Jones MD Primary Care Provider: MARCOS Saravia Chief Complaint: onc sent, back pain, confusion History of Present Illness Cheyenne Pete is a 84 year old female With past medical history of left breast cancer diagnosed 2017 status posttreatment, has been following with oncology. Regularly with Dr. Houser. Patient last saw Dr. Andersen today, noted she has been having continuous weakness, falls, and today she complains of back pain. Family states that she has been not herself, suspects maybe she has some kind of infection. Of note, on CT abdomen pelvis patient's has extensive osteolytic metastatic bone disease, possibly recurrence of breast cancer. Patient's primarily sent from Dr. Houser's office for her hypercalcemia, which had tapered to 10.8 from higher number prior to arrival., With IV fluid resuscitation. Patient is awake, slightly confused, disoriented x 2. Medications/Allergies Home Medications ?Medication ?Instructions ?Recorded ?Confirmed ?Last Taken ?Type blood sugar diagnostic #100 ea 03/23/23 06/05/25 Unknown Rx blood sugar diagnostic (Blood #50 ea 03/24/23 06/05/25 Unknown Rx Glucose Test strips) budesonide-formoterol HFA 160 2 puff inhalation BID #10.2 grams 07/16/24 06/05/25 06/03/25 Rx mcg-4.5 mcg/actuation aerosol inhaler (Symbicort) escitalopram oxalate 10 mg tablet 5 mg (1/2 x 10 mg) PO DAILY #90 07/16/24 06/05/25 06/03/25 Rx (Lexapro) tabs losartan 50 mg tablet 50 mg PO BID #180 tabs 01/22/25 06/05/25 06/03/25 Rx aspirin 81 mg tablet 81 mg PO .every other day 04/04/25 06/05/25 06/03/25 History atorvastatin 20 mg tablet 20 mg PO DAILY #90 tabs 04/29/25 06/05/25 06/03/25 Rx hydrochlorothiazide 12.5 mg tablet 12.5 mg PO DAILY high blood 04/29/25 06/05/25 06/03/25 Rx pressure #90 tabs lidocaine HCl 2 % mucosal solution 5 ml mucous membrane TID PRN pain 05/28/25 06/05/25 Unknown Rx (Lidocaine Viscous) #80 mL prochlorperazine maleate 10 mg 10 mg PO Q8H PRN nausea and 05/28/25 06/05/25 Unknown Rx tablet (Compazine) vomiting 14 days #42 tabs levothyroxine 75 mcg tablet 75 mcg PO QAM 06/05/25 06/05/25 06/03/25 History metformin 500 mg tablet 500 mg PO BID 06/05/25 06/05/25 06/03/25 History metoprolol tartrate 50 mg tablet 75 mg PO BID 06/05/25 06/05/25 06/03/25 History Allergies Allergy/AdvReac Type Severity Reaction Status Date / Time No Known Allergies Allergy Verified 06/04/25 10:59 PFSH Acute PFSH: Medical History (Updated 06/05/25 @ 14:35 by Bernardino Jones MD) Upper respiratory tract infection, unspecified type HX: breast cancer Left hip pain Inverted nipple Enrolled in chronic care management Nipple discharge Environmental and seasonal allergies Transaminitis DDD (degenerative disc disease) DJD (degenerative joint disease) Breast cancer Leg swelling Hx of radiation therapy Hypothyroidism Cardiomegaly Ductal carcinoma in situ (DCIS) of left breast Asthma Hyperthyroidism Hypertension Hyperlipidemia Encounter for long-term (current) use of NSAIDs Encounter for opiate analgesic use agreement Chronic low back pain Bursitis of right knee Diabetes Surgical History Hx of total knee replacement Hx of lumpectomy Hx of cataract extraction History of eyelid surgery Hx of breast surgery Hx of hemorrhoidectomy Hx of total shoulder replacement Status post right knee replacement Family History Father No problems noted. Mother CAD (coronary artery disease), Onset Age: 50 Stroke Brother Stroke Cancer Lung disease Denies family history of Diabetes Clotting disorder Dementia Chronic kidney disease (CKD) Suicide Anesthesia complication Bleeding disorder Social History Smoking and tobacco/nicotine status: never used tobacco/nicotine Second hand smoke exposure: No Alcohol intake: never Substance/Drug Use: never Vitals/I&O/Wt Last Vital Signs Temp 97.6 F 06/04/25 12:00 Pulse 90 06/04/25 17:43 Resp 18 06/04/25 17:43 BP 109/59 06/04/25 17:43 Pulse Ox 94 06/04/25 17:43 O2 Del Method Room Air 06/04/25 10:49 Weight last 48 hrs Weight 49.442 kg Physical Exam Const: COMMON NORMALS: alert ORIENTATION/CONSCIOUSNESS: Yes awake HENMT: COMMON NORMALS: oropharynx normal Neck/C-Spine: COMMON NORMALS: no JVD Resp: COMMON NORMALS: normal respiratory effort and clear to auscultation bilaterally AUSCULTATION: clear to auscultation bilaterally Cardio: COMMON NORMALS: no JVD, regular rhythm, S1 normal heart sound present, S2 normal heart sound present and No murmurs present (Cardio) RHYTHM: regular rhythm HEART SOUNDS: S1 normal heart sound present and S2 normal heart sound present GI: COMMON NORMALS: Normal to inspection, nondistended, normoactive bowel sounds present, Soft to palpation and non-tender PALPATION: Yes Soft to palpation Back/Pelvis: OTHER: Sharp tenderness in the left flank Extremity: COMMON NORMALS: no joint enlargement and no pedal edema Neuro: COMMON NORMALS: patient oriented x3 and moves all extremities SENSORIUM/ORIENTATION: Yes alert Skin: COMMON NORMALS: no rashes or lesions noted GENERAL SKIN EXAM: no rashes or lesions noted Urinary Catheter Management: Tejeda: Cath Placed During This Visit: yes Urinary Catheter Date of Insertion: 06/04/25 Urinary Catheter Time of Insertion: 12:36 Data 06/06/25 04:52 06/06/25 04:52 Micro: Microbiology 06/04/25 11:50 Blood Culture - Preliminary Blood SPECIMEN COLLECTED 06/04/25 11:55 Blood Culture - Preliminary Blood SPECIMEN COLLECTED A&P Assessment and plan 1. Hypercalcemia: 2. Breast cancer metastasized to bone: Plan: ROSY, hypovolemia, confused state due to hypercalcemia?primary versus secondary Metastatic bone disease, likely cancer Bone metastases, fracture risk Pain due to malignancy Cancer cachexia Constipation, due to dehydration, cachexia Prerenal ROSY Electrolyte derangement Anemia of chronic disease/iron deficiency Inflammatory response with leukocytosis Patient with suspected recurrent metastatic breast cancer extensive osteolytic bone disease continue inpatient stabilization with symptom management, while awaiting oncology input. IV zoledronic acid is held due to GFR less than 30. Consider starting dronabinol. Continue IV fluids for prerenal ROSY, dehydration Daily monitoring of renal function electrolytes, replete as needed. Fall precautions Monitor for neurologic changes DVT prophylaxis?Lovenox PDMP PDMP Reviewed: Not Reviewed Attestations Medical Necessity Statement*: Patient requires inpatient stay for IV fluid resuscitation, treatment of hypercalcemia, frequent labs, radiological workup. Patient has a high fracture risk, advanced metastatic disease, palliative appropriate. Poor prognosis. Diagnoses Hypercalcemia E83.52 Breast cancer metastasized to bone C50.919; C79.51
[2025-06-05] VITALS (8 sets, daily range): BP systolic 91–147; BP diastolic 51–89; PULSE 64–115; RESP 16–18; TEMP 36.4–36.9; O2SAT 91–99
[2025-06-05 04:58] LABS: Hematocrit 33.6 % (36-47); Hemoglobin 10.30 g/dL (11.27-16.99); Mean Corpuscular HGB Conc 30.7 g/dL (30-55); Mean Corpuscular Hemoglobin 27.8 pg (27-33); Mean Corpuscular Volume 90.8 fl (85-98); Nucleated Red Blood Cells % 0 %; Platelet Count 267 10^3/cmm (157-399); Red Blood Count 3.70 10^6/uL (3.85-5.65); White Blood Count 15.83 10^3/uL (3.29-11.43)
[2025-06-05 05:31] LABS: Alanine Aminotransferase < 5 U/L (0-33); Albumin Level 2.6 g/dL (3.5-5.2); Alkaline Phosphatase 131 U/L (35-105); Anion Gap 19.2 (5-19); Aspartate Amino Transferase 10 U/L (0-32); Blood Urea Nitrogen 34 mg/dL (8-23); Calcium 9.7 mg/dL (8.5-10.5); Carbon Dioxide 19 mmol/L (22-29); Chloride 105 mmol/L (98-107); Globulin 3.4 g/dL (1.3-4.6); Glucose 78 mg/dL (65-115); Magnesium 1.3 mg/dL (1.7-2.3); Osmolality Calculated 294 mOsm/kg (285-295); Potassium 4.2 mmol/L (3.5-5.1); Sodium 139 mmol/L (136-145); Total Protein 6.0 g/dL (6.6-8.7)
[2025-06-05] MEDS: magnesium sulfate premix 2 GM/50 ML PIGGYBACK IV (09:10)
--- NOTE | 2025-06-05 14:31 | CTR_ITS ---
PROCEDURE INFORMATION: Exam: CT Chest Without Contrast; Diagnostic Exam date and time: 06/05/2025 3:00 PM Age: 84 years old Clinical indication: Abnormal findings; Abnormal radiologic exam of lung or chest; Prior surgery; Surgery date: 6+ months; Surgery type: Left shoulder, left breast; Follow up to chest xray and CT abd/pel, lytic lesions, possible FX. HX of breast cancer; Additional info: Lytic lesions, possible fracture TECHNIQUE: Imaging protocol: Diagnostic computed tomography of the chest without contrast. Radiation optimization: All CT scans at this facility use at least one of these dose optimization techniques: automated exposure control; mA and/or kV adjustment per patient size (includes targeted exams where dose is matched to clinical indication); or iterative reconstruction. COMPARISON: CT chest w con* [id number] 03/07/2022 11:05 AM RADIATION DOSE METRICS: Total DLP (mGy-cm): 217.4 FINDINGS: Lungs: No other suspicious pulmonary masses identified. Multiple calcified granulomas in both lungs. No infiltrates or lobar consolidation. Pleural spaces: No pleural effusions or pneumothorax. Heart: Heart size within normal limits. Coronary arteries: Scattered atherosclerotic coronary artery calcifications. Lymph nodes: Prominent pretracheal lymph nodes and right hilar lymph nodes, likely metastatic. The largest pretracheal lymph node measures up to 13 mm in the AP dimension. Vasculature: Large spiculated mass in the medial aspect of the right upper lobe abutting the superior mediastinum without definite invasion of the adjacent structures with to include superior vena cava, the trachea, in the right mainstem bronchus. The mass measures 3.3 x 5.3 x 3.8 cm. Diaphragm: Small hiatal hernia. Liver: Calcified granulomas in the liver and spleen consistent with sequelae of old granulomatous disease. Bones/joints: Numerous lytic lesions throughout the visualized spine consistent with osseous metastases with the largest lesions located within the T2, T7, T9, and L1 vertebral bodies. Soft tissues: Unremarkable. CT/CT chest wo con [id number] IMPRESSION: 1. Large spiculated mass in the medial aspect of the right upper lobe abutting the superior mediastinum without definite invasion of the adjacent structures with to include superior vena cava, the trachea, in the right mainstem bronchus. The mass measures 3.3 x 5.3 x 3.8 cm. Findings most concerning for primary bronchogenic carcinoma. 2. No other suspicious pulmonary masses identified. Multiple calcified granulomas in both lungs. 3. Prominent pretracheal lymph nodes and right hilar lymph nodes, likely metastatic. The largest pretracheal lymph node measures up to 13 mm in the AP dimension. 4. Numerous lytic lesions throughout the visualized spine consistent with osseous metastases with the largest lesions located within the T2, T7, T9, and L1 vertebral bodies. 5. Scattered atherosclerotic coronary artery calcifications.
--- NOTE | 2025-06-05 14:32 | MRR_ITS ---
PROCEDURE INFORMATION: Exam: MR Head Without Contrast Exam date and time: 06/05/2025 3:11 PM Age: 84 years old Clinical indication: Altered mental status/memory loss; Confusion or disorientation; Additional info: Metastatic disease/confusion TECHNIQUE: Imaging protocol: Magnetic resonance imaging of the head without contrast. COMPARISON: [place] thyroid [id number] 08/25/2022 1:44 PM FINDINGS: Brain: The brain is developmentally normal. There is no evidence of intracranial hemorrhage, mass lesion, or acute ischemic change. Minimal microangiopathic white matter changes are identified without areas of restricted diffusion. No susceptibility artifacts are present. Cerebral ventricles: Normal. No ventriculomegaly. Bones: Seen on axial images 14 on multiple series is a small left parietal diploic intermediate T1 and intermediate T2 signal intensity structure measuring 10.8 x 8.7 x 2.7 mm in diameter, likely a small diploic cervantes. The calvarium and skull base are otherwise unremarkable. Paranasal sinuses: Normal as visualized. No acute sinusitis. Mastoid air cells: Normal as visualized. No mastoid effusion. Orbital cavities: Cataract surgery is apparent. The globes are otherwise unremarkable. Soft tissues: Unremarkable. MR/MR head wo con* [id number] IMPRESSION: 1. Mild microangiopathic white matter changes. 2. No evidence of acute intracranial pathology
--- NOTE | 2025-06-05 14:38 | P.PN_ITS ---
Subjective 2 Subjective: Saw patient at bedside this morning, she is in good spirits, watching TV. No complaints. ? Family was at bedside, I shared with them the information about her advanced cancer. CT and MRI are pending. Discussed with Dr. Houser about plan of care, recommendations appreciated. Vitals/I&O/Wt Last Vital Signs Temp 97.8 F 06/05/25 11:56 Pulse 77 06/05/25 11:56 Resp 16 06/05/25 11:56 BP 125/81 06/05/25 11:56 Pulse Ox 95 06/05/25 11:56 O2 Del Method Room Air 06/05/25 11:56 06/04/25 06/05/25 06/05/25 22:59 06:59 14:59 Intake Total 3201.25 / 3201.25 Output Total 50 / 50 200 / 250 Balance -50 / -50 -200 / -250 3201.25 / 3201.25 Weight last 48 hrs Weight 51.88 kg Weight 52.617 kg Weight 49.442 kg Physical Exam 2 Const: COMMON NORMALS: patient oriented x3 and alert O RIENTATION/CONSCIOUSNESS: Yes awake HENMT: COMMON NORMALS: oropharynx normal Neck/C-Spine: COMMON NORMALS: no JVD Resp: COMMON NORMALS: normal respiratory effort and clear to auscultation bilaterally AUSCULTATION: clear to auscultation bilaterally Cardio: COMMON NORMALS: no JVD, regular rhythm, S1 normal heart sound present, S2 normal heart sound present and No murmurs present (Cardio) RHYTHM: regular rhythm HEART SOUNDS: S1 normal heart sound present and S2 normal heart sound present GI: COMMON NORMALS: Normal to inspection, nondistended, normoactive bowel sounds present, Soft to palpation and non-tender PALPATION: Yes Soft to palpation Back/Pelvis: OTHER: Sharp tenderness in the left flank Extremity: COMMON NORMALS: no joint enlargement and no pedal edema Neuro: COMMON NORMALS: patient oriented x3 and moves all extremities S ENSORIUM/ORIENTATION: Yes alert Skin: COMMON NORMALS: no rashes or lesions noted GENERAL SKIN EXAM: no rashes or lesions noted Urinary Catheter Management: Tejeda: Cath Placed During This Visit: yes Reason for Continuing Indwelling Catheter: Acute Urinary Retention or Obstruction Urinary Catheter Date of Insertion: 06/04/25 Urinary Catheter Time of Insertion: 12:36 Data 06/06/25 04:52 06/06/25 04:52 Micro: Microbiology 06/04/25 11:50 Blood Culture - Preliminary Blood NEGATIVE TO DATE 06/04/25 11:55 Blood Culture - Preliminary Blood NEGATIVE TO DATE A&P Assessment and plan 1. Hypercalcemia: 2. Breast cancer metastasized to bone: Plan: ROSY, hypovolemia, confused state due to hypercalcemia?primary versus secondary Metastatic bone disease, likely cancer Bone metastases, fracture risk Pain due to malignancy Cancer cachexia Constipation, due to dehydration, cachexia Prerenal ROSY Electrolyte derangement Anemia of chronic disease/iron deficiency Inflammatory response with leukocytosis Patient with suspected recurrent metastatic breast cancer extensive osteolytic bone disease continue inpatient stabilization with symptom management, while awaiting oncology input. IV zoledronic acid is held due to GFR less than 30. Consider starting dronabinol. Continue IV fluids for prerenal ROSY, dehydration Daily monitoring of renal function electrolytes, replete as needed. Fall precautions Monitor for neurologic changes Discussed with oncology?obtain MRI brain, CT of the chest since only CT of the abdomen and pelvis was done yesterday, identify any fractures causing the patient's left back pain, possible rib fracture. ? Start [place] 5?3 25 scheduled, with scheduled bowel regiment. Start dronabinol for poor appetite. Continue home medications. ? Continue IV fluid resuscitation, zoledronic acid prior to discharge if kidney function permits ? Follow-up outpatient bone biopsy, patient remained stable, possible discharge tomorrow to go home. DVT prophylaxis?Lovenox PDMP PDMP Reviewed: Not Reviewed Attestations 2 Medical Necessity Statement*: Patient requires inpatient stay for IV fluid resuscitation, treatment of hypercalcemia, frequent labs, radiological workup. Patient has a high fracture risk, advanced metastatic disease, palliative appropriate. Poor prognosis. Diagnoses Hypercalcemia E83.52 Breast cancer metastasized to bone C50.919; C79.51
[2025-06-05] MEDS: HYDROcodone-acetaminophen 5-325 mg Tablet 1 TAB PO ×2 (16:41→20:27)
[2025-06-05] MEDS: polyethylene glycol 3350 Pkt 17 gm PO (18:22)
[2025-06-06 01:06] VITALS: BP 126/77
[2025-06-06 04:00] VITALS: BP 114/68; PULSE 71; RESP 16; TEMP 36.7; O2SAT 93
[2025-06-06] MEDS: polyethylene glycol 3350 Pkt 17 gm PO (05:07)
[2025-06-06] MEDS: ATORVASTATIN 20 MG TABLET PO (05:07)
[2025-06-06 05:20] LABS: Hematocrit 33.9 % (36-47); Hemoglobin 10.50 g/dL (11.27-16.99); Mean Corpuscular HGB Conc 31.0 g/dL (30-55); Mean Corpuscular Hemoglobin 27.8 pg (27-33); Mean Corpuscular Volume 89.7 fl (85-98); Nucleated Red Blood Cells % 0 %; Platelet Count 288 10^3/cmm (157-399); Red Blood Count 3.78 10^6/uL (3.85-5.65); White Blood Count 14.96 10^3/uL (3.29-11.43)
[2025-06-06 05:30] LABS: Alanine Aminotransferase < 5 U/L (0-33); Albumin Level 2.6 g/dL (3.5-5.2); Alkaline Phosphatase 131 U/L (35-105); Anion Gap 15.1 (5-19); Aspartate Amino Transferase 11 U/L (0-32); Blood Urea Nitrogen 23 mg/dL (8-23); Calcium 9.4 mg/dL (8.5-10.5); Carbon Dioxide 22 mmol/L (22-29); Chloride 103 mmol/L (98-107); Globulin 3.4 g/dL (1.3-4.6); Glucose 88 mg/dL (65-115); Magnesium 1.6 mg/dL (1.7-2.3); Osmolality Calculated 285 mOsm/kg (285-295); Potassium 4.1 mmol/L (3.5-5.1); Sodium 136 mmol/L (136-145); Total Protein 6.0 g/dL (6.6-8.7)
[2025-06-06 07:27] VITALS: BP 112/66; PULSE 75; RESP 16; TEMP 36.6; O2SAT 90
[2025-06-06 11:18] VITALS: BP 107/70; PULSE 70; RESP 16; TEMP 36.4; O2SAT 94
[2025-06-06] MEDS: zoledronic acid (Zometa) 4 MG/100 ML PIGGYBACK 200 MG IV (12:17)
--- NOTE | 2025-06-06 13:13 | PM.DCS ---
Discharge Providers Date of Admission: 06/05/25 18:16 Date of Discharge: June 06, 2025 Attending Provider at Admission: Bernardino Jones MD Attending Provider at Discharge: Bernardino Jones MD Primary Care Provider: MARCOS Saravia Diagnoses at Discharge Discharge Diagnosis 1. Hypercalcemia: 2. Breast cancer metastasized to bone: Reason for Visit Reason for Visit: onc sent, back pain, confusion Brief History: Cheyenne Pete is a 84 year old female With past medical history of left breast cancer diagnosed 2017 status posttreatment, has been following with oncology. Regularly with Dr. Houser. Patient last saw Dr. Andersen today, noted she has been having continuous weakness, falls, and today she complains of back pain. Family states that she has been not herself, suspects maybe she has some kind of infection. Of note, on CT abdomen pelvis patient's has extensive osteolytic metastatic bone disease, possibly recurrence of breast cancer. Patient's primarily sent from Dr. Houser's office for her hypercalcemia, which had tapered to 10.8 from higher number prior to arrival., With IV fluid resuscitation. Patient is awake, slightly confused, disoriented x 2. Hospital Course Hospital Course Plan: ROSY, hypovolemia, confused state due to hypercalcemia?primary versus secondary Metastatic bone disease, likely cancer Bone metastases, fracture risk Pain due to malignancy Cancer cachexia Constipation, due to dehydration, cachexia Prerenal ROSY Electrolyte derangement Anemia of chronic disease/iron deficiency Inflammatory response with leukocytosis Patient with suspected recurrent metastatic breast cancer extensive osteolytic bone disease continue inpatient stabilization with symptom management, while awaiting oncology input. IV zoledronic acid is held due to GFR less than 30. Consider starting dronabinol. Continue IV fluids for prerenal ROSY, dehydration Daily monitoring of renal function electrolytes, replete as needed. Fall precautions Monitor for neurologic changes Discussed with oncology?CT of the chest did show more lytic lesions along her spine, likely the source of her pain. MRI of the brain was unremarkable. ?Patient declined the opiates, so they were not sent home with her. She did have improved pain and appetite with the dronabinol, so I gave her a 30-day supply as needed for poor appetite. ?Kidney function improved on day of discharge, and patient was infused with 4 mg of IV Zometa, and instructed to follow-up with her primary care and oncologist ? Follow-up outpatient bone biopsy, patient remained stable, discharge to go home. With family. Physical Exam Const: COMMON NORMALS: patient oriented x3 and alert ORIENTATION/CONSCIOUSNESS: Yes awake HENMT: COMMON NORMALS: oropharynx normal Neck/C-Spine: COMMON NORMALS: no JVD Resp: COMMON NORMALS: normal respiratory effort and clear to auscultation bilaterally AUSCULTATION: clear to auscultation bilaterally Cardio: COMMON NORMALS: no JVD, regular rhythm, S1 normal heart sound present, S2 normal heart sound present and No murmurs present (Cardio) RHYTHM: regular rhythm HEART SOUNDS: S1 normal heart sound present and S2 normal heart sound present GI: COMMON NORMALS: Normal to inspection, nondistended, normoactive bowel sounds present, Soft to palpation and non-tender PALPATION: Yes Soft to palpation Back/Pelvis: OTHER: Sharp tenderness in the left flank Extremity: COMMON NORMALS: no joint enlargement and no pedal edema Neuro: COMMON NORMALS: patient oriented x3 and moves all extremities SENSORIUM/ORIENTATION: Yes alert Skin: COMMON NORMALS: no rashes or lesions noted GENERAL SKIN EXAM: no rashes or lesions noted Urinary Catheter Management: Tejeda: Cath Placed During This Visit: yes Reason for Continuing Indwelling Catheter: Acute Urinary Retention or Obstruction Urinary Catheter Date of Insertion: 06/04/25 Urinary Catheter Time of Insertion: 12:36 Discharge Data Studies Completed and Pending Completed Studies During Hospitalization Category Date Time Status CT abdomen pelvis wo con [id number] Stat Cat Scan 06/04/25 13:[address] chest wo con [id number] Routine Cat Scan 06/05/25 14:31 Completed MR head wo con* [id number] Routine MRI 06/05/25 14:32 Completed Pending at discharge Category Date Time Status Blood Culture Stat Lab 06/04/25 11:50 Results Complete Blood Count w/Auto AM LABS Lab 06/07/25 04:00 Ordered Comprehensive Metabolic Panel AM LABS Lab 06/07/25 04:00 Ordered Magnesium AM LABS Lab 06/07/25 04:00 Ordered Phosphorus AM LABS Lab 06/07/25 04:00 Ordered Radiology Impressions Abdomen/Pelvis CT 06/04/25 13:44 IMPRESSION: 1. Extensive osteolytic metastatic bone disease. 2. Small nodules at the lung bases. Metastatic sites not excluded. 3. Moderate size hiatal hernia. 4. Focal area of decreased attenuation RIGHT lobe of the liver measures 10 mm. Metastatic site not excluded. Ultrasound may provide additional information. 5. Large RIGHT renal cyst. 6. No renal obstruction. Nonobstructing 6 mm calcification in the LEFT renal pelvis. 7. Diverticulosis without acute diverticulitis. 8. Tejeda catheter present in a nondistended urinary bladder. Chest CT 06/05/25 14:31 IMPRESSION: 1. Large spiculated mass in the medial aspect of the right upper lobe abutting the superior mediastinum without definite invasion of the adjacent structures with to include superior vena cava, the trachea, in the right mainstem bronchus. The mass measures 3.3 x 5.3 x 3.8 cm. Findings most concerning for primary bronchogenic carcinoma. 2. No other suspicious pulmonary masses identified. Multiple calcified granulomas in both lungs. 3. Prominent pretracheal lymph nodes and right hilar lymph nodes, likely metastatic. The largest pretracheal lymph node measures up to 13 mm in the AP dimension. 4. Numerous lytic lesions throughout the visualized spine consistent with osseous metastases with the largest lesions located within the T2, T7, T9, and L1 vertebral bodies. 5. Scattered atherosclerotic coronary artery calcifications. Head MRI 06/05/25 14:32 IMPRESSION: 1. Mild microangiopathic white matter changes. 2. No evidence of acute intracranial pathology Laboratory Results WBC 14.96 10^3/uL (3.29-11.43) H 06/06/25 04:52 RBC 3.78 10^6/uL (3.85-5.65) L 06/06/25 04:52 Hgb 10.50 g/dL (11.27-16.99) L 06/06/25 04:52 Hct 33.9 % (36-47) L 06/06/25 04:52 MCV 89.7 fl (85-98) 06/06/25 04:52 MCH 27.8 pg (27-33) 06/06/25 04:52 MCHC 31.0 g/dL (30-55) 06/06/25 04:52 RDW 15.4 % (12.1-15.1) H 06/06/25 04:52 Plt Count 288 10^3/cmm (157-399) 06/06/25 04:52 MPV 9.3 fL (7.4-10.4) 06/06/25 04:52 Neut % (Auto) 75.3 % 06/06/25 04:52 Lymph % (Auto) 12.0 % 06/06/25 04:52 [place] % (Auto) 6.1 % 06/06/25 04:52 Eos % (Auto) 5.2 % 06/06/25 04:52 Baso % (Auto) 0.3 % 06/06/25 04:52 Neut # (Auto) 11.24 10^3/uL (1.8-7.7) H 06/06/25 04:52 Lymph # (Auto) 1.8 10^3/uL (0.8-4.8) 06/06/25 04:52 [place] # (Auto) 0.9 10^3/uL (0.2-0.9) 06/06/25 04:52 Eos # (Auto) 0.8 10^3/uL (0.0-0.8) 06/06/25 04:52 Baso # (Auto) 0.1 10^3/uL (0.0-0.1) 06/06/25 04:52 Nucleated RBC % (auto) 0 % 06/06/25 04:52 Nucleated RBCs # 0.0 /100WBC 06/06/25 04:52 Sodium 136 mmol/L (136-145) 06/06/25 04:52 Potassium 4.1 mmol/L (3.5-5.1) 06/06/25 04:52 Chloride 103 mmol/L (98-107) 06/06/25 04:52 Carbon Dioxide 22 mmol/L (22-29) 06/06/25 04:52 Anion Gap 15.1 (5-19) 06/06/25 04:52 BUN 23 mg/dL (8-23) 06/06/25 04:52 Creatinine 0.8 mg/dL (0.5-0.9) 06/06/25 04:52 GFR Calculation Not Reportable 06/06/25 04:52 Glucose 88 mg/dL (65-115) 06/06/25 04:52 POC Glucose 83 mg/dL (70-110) 06/06/25 10:46 Calculated Osmolality 285 mOsm/kg (285-295) 06/06/25 04:52 Lactic Acid Cancelled 06/04/25 11:50 Lactate 1.6 mmol/L (0.5-2.2) 06/04/25 12:43 Calcium 9.4 mg/dL (8.5-10.5) 06/06/25 04:52 Ionized Calcium Jose Cruz 1.3 mmol/L (1.1-1.4) 06/05/25 14:53 Phosphorus 2.1 mg/dL (2.5-4.5) L 06/06/25 04:52 Magnesium 1.6 mg/dL (1.7-2.3) L 06/06/25 04:52 Total Bilirubin 0.3 mg/dL (0.15-1.2) 06/06/25 04:52 AST 11 U/L (0-32) 06/06/25 04:52 ALT < 5 U/L (0-33) 06/06/25 04:52 Alkaline Phosphatase 131 U/L (35-105) H 06/06/25 04:52 C-Reactive Protein 74.0 mg/L (0.0-4.9) H 06/04/25 12:43 Total Protein 6.0 g/dL (6.6-8.7) L 06/06/25 04:52 Albumin 2.6 g/dL (3.5-5.2) L 06/06/25 04:52 Globulin 3.4 g/dL (1.3-4.6) 06/06/25 04:52 25-OH Vitamin D Total 23 ng/mL (30-100) L 06/05/25 04:47 Procalcitonin 0.29 ng/mL (0-0.5) 06/04/25 12:43 Urine Color Yellow (Yellow) 06/04/25 12:09 Urine Appearance Clear (CLEAR) 06/04/25 12:09 Urine pH 5.0 (5-7) 06/04/25 12:09 Ur Specific Porter 1.020 (1.005-1.030) 06/04/25 12:09 Urine Protein Trace (Negative) A 06/04/25 12:09 Urine Glucose (UA) Negative (Normal) 06/04/25 12:09 Urine Ketones 1+ (Negative) H 06/04/25 12:09 Urine Blood Negative (Negative) 06/04/25 12:09 Urine Nitrate Negative (Negative) 06/04/25 12:09 Urine Bilirubin Negative (Negative) 06/04/25 12:09 Urine Urobilinogen 1.0 mg/dL (Negative) 06/04/25 12:09 Ur Leukocyte Esterase Negative (Negative) 06/04/25 12:09 Urine RBC 3-5 /hpf (0-2) 06/04/25 12:09 Urine WBC 0-5 /hpf (0-5) 06/04/25 12:09 Ur Squamous Epith Cells 0-5 /hpf (0-5) 06/04/25 12:09 Amorphous Sediment Not Reportable 06/04/25 12:09 Urine Bacteria None seen /hpf (NONE) 06/04/25 12:09 Hyaline Casts 17.77 /lpf 06/04/25 12:09 Influenza A (PCR) Negative (Negative) 06/04/25 12:23 Influenza Type B (PCR) Negative (Negative) 06/04/25 12:23 RSV (PCR) Negative (Negative) 06/04/25 12:23 SARS-CoV-2 (PCR) Negative (Negative) 06/04/25 12:23 Vitals Last Vital Signs Temp 97.6 F 06/06/25 11:18 Pulse 70 06/06/25 11:18 Resp 16 06/06/25 11:18 BP 107/70 06/06/25 11:18 Pulse Ox 94 06/06/25 11:18 O2 Del Method Room Air 06/06/25 11:18 Discharge Plan Discharge Patient Disposition: Home Condition: Stable Prescriptions: New dronabinol 2.5 mg Capsule 2.5 mg PO PRN 30 Days Qty: 30 0RF Rx Instructions: Take as needed for poor appetite. Continued escitalopram oxalate [Lexapro] 10 mg tablet 5 mg PO DAILY Qty: 90 3RF budesonide-formoterol [Symbicort] 160-4.5 mcg/actuation HFA aerosol inhaler 2 puff inhalation BID Qty: 10.2 10RF Rx Instructions: if possible 3 months at a time (DME) blood sugar diagnostic Strip See Rx Instructions .Route Qty: 100 1RF Rx Instructions: Use to check blood sugar daily aspirin 81 mg tablet 81 mg PO .every other day prochlorperazine maleate [Compazine] 10 mg tablet 10 mg PO Q8H PRN (Reason: nausea and vomiting) 14 Days Qty: 42 0RF (DME) Blood Glucose Test Strip See Rx Instructions .Route Qty: 50 11RF Rx Instructions: USE ONE STRIP TO CHECK GLUCOSE ONCE DAILY atorvastatin 20 mg tablet 20 mg PO DAILY Qty: 90 1RF lidocaine HCl [Lidocaine Viscous] 2 % solution 5 ml mucous membrane TID PRN (Reason: pain) Qty: 80 0RF Rx Instructions: add Maalox 80ml and benadryl 80ml Nystatin 80ml to make mouthwash, swish and spit metformin 500 mg tablet 500 mg PO BID levothyroxine 75 mcg tablet 75 mcg PO QAM Changed losartan 50 mg tablet 25 mg PO BID Qty: 180 1RF metoprolol tartrate 50 mg tablet 25 mg PO BID Qty: 30 0RF Discontinued hydrochlorothiazide 12.5 mg tablet 12.5 mg PO DAILY Qty: 90 1RF [employer] OK for DC: Hematolgy/Oncology Referrals: SHOAIB Hunt FNP [Primary Care Provider, Family Practice] Referral Note: We have notified your physician's clinic of the need for a follow-up appointment to be scheduled. If you have not heard from them within the next 2 business days, please call them directly. Bridger Houser MD [Hospitalist, Oncology] - 1 week Discharge Diet: Advance as tolerated Discharge Activity: Use walker/crutches as instructed Patient Instructions: Opioid Safety, Pain Management, Patient Portal & January Instructions Discharge Attestations Time Spent in Discharge Care*: greater than 30 min Quality Metrics Clinical Quality Measures [ No reported AMI, CVA or VTE this stay] Coding Level of Care Code 24365 Diagnoses Hypercalcemia E83.52 Breast cancer metastasized to bone C50.919; C79.51
--- NOTE | 2025-06-06 13:50 | PC.SOCIAL ---
IMM Updated Updated pt on IMM. No questions voiced. Provided pt a copy. Initialed, dated, & timed a copy & placed in chart.
[2025-06-06 16:11] VITALS: BP 107/70; PULSE 70; RESP 16; TEMP 36.4; O2SAT 94
== END 2025-06-06 15:10 | disposition home or self-care (01) ==
LOC: ER 18:10 → MEDSURG 19:13
PROVIDERS: Admitting Provider Internal Medicine; Emergency Provider Emergency Medicine; PCP Nurse Practitioner Family; Visit Provider Internal Medicine
DX: E83.52 Hypercalcemia (principal); C50.919 Malignant neoplasm of unspecified site of unspecified female breast; C79.51 Secondary malignant neoplasm of bone; Z79.82 Long term (current) use of aspirin; Z79.84 Long term (current) use of oral hypoglycemic drugs; E05.90 Thyrotoxicosis, unspecified without thyrotoxic crisis or storm; E78.5 Hyperlipidemia, unspecified; I10 Essential (primary) hypertension; E03.9 Hypothyroidism, unspecified
CPT/HCPCS: 36415; 36416; 51702; 70551; 71250; 74176; 80053; 81001; 82306; 82330; 82962; 83605; 83735; 84100; 84145; 85025; 86140; 87040; 87637; 96360; 96372; 99285; G0378; J1650; J3475; J3489; J7030; J7040; J9999; Q0167

== ENCOUNTER 2025-06-11 09:30 | Oncology outpatient (recurring) (ONCR) | payer MEDICARE, SELFPAY ==
[2025-05-15 13:02] LABS: Hematocrit 37.2 % (36-47); Hemoglobin 11.50 g/dL (11.27-16.99); Mean Corpuscular HGB Conc 30.9 g/dL (30-55); Mean Corpuscular Hemoglobin 27.6 pg (27-33); Mean Corpuscular Volume 89.2 fl (85-98); Nucleated Red Blood Cells % 0 %; Platelet Count 452 10^3/cmm (157-399); Red Blood Count 4.17 10^6/uL (3.85-5.65); White Blood Count 17.35 10^3/uL (3.29-11.43)
[2025-05-15 13:19] LABS: Alanine Aminotransferase 7 U/L (0-33); Albumin Level 3.7 g/dL (3.5-5.2); Alkaline Phosphatase 172 U/L (35-105); Anion Gap 16.3 (5-19); Aspartate Amino Transferase 12 U/L (0-32); Blood Urea Nitrogen 32 mg/dL (8-23); Calcium 9.9 mg/dL (8.5-10.5); Carbon Dioxide 27 mmol/L (22-29); Chloride 100 mmol/L (98-107); Globulin 4.0 g/dL (1.3-4.6); Glucose 122 mg/dL (65-115); Osmolality Calculated 296 mOsm/kg (285-295); Potassium 4.3 mmol/L (3.5-5.1); Sodium 139 mmol/L (136-145); Total Protein 7.7 g/dL (6.6-8.7)
[2025-05-15 15:41] LABS: Ferritin 358 ng/mL (15-150); Iron 25 ug/dL (37-145); Total Iron Binding Capacity 204 mcg/dl; Unsaturated Iron Binding 179 ug/dL (112-347)
[2025-05-15 16:30] LABS: Vitamin B12 295 pg/mL (232-1245)
--- NOTE | 2025-05-23 09:38 | XRR_ITS ---
PROCEDURE INFORMATION: Exam: XR Chest Exam date and time: 05/23/2025 10:09 AM Age: 84 years old Clinical indication: Condition or disease; Other: Breast cancer TECHNIQUE: Imaging protocol: Radiologic exam of the chest. Views: 2 views. COMPARISON: CR XR chest 2V* [id number] 04/05/2024 9:17 AM FINDINGS: Lungs: See Bones/joints finding. Pleural spaces: Unremarkable. No pleural effusion. No pneumothorax. Heart/Mediastinum: Unremarkable. No cardiomegaly. Bones/joints: Status post left shoulder arthroplasty. Calcified pulmonary nodules suggest previous granulomatous disease. No focal or diffuse significant airspace disease. Curvature of the spine, possible scoliosis. XR/XR chest 2V* [id number] IMPRESSION: No acute cardiopulmonary abnormality.
--- NOTE | 2025-05-23 09:45 | US_ITS ---
WS: [id number] Complete ABDOMINAL ULTRASOUND HISTORY: breast cancer COMPARISON: None available. Liver: 12.9 cm in length. Normal size liver and echogenicity. No bile duct dilatation or mass. Portal Vein: Normal hepatopetal flow with monophasic waveform. Gallbladder: Normally distended gallbladder with no stones or wall thickening. CBD: 0.2 cm Pancreas: Partially visualized. No abnormality identified. Right kidney: 8.5 cm x 4.4 x 4.3 cm. Cortex:0.9 cm. Low normal size RIGHT kidney with cortical thinning. There is a large cyst extending anteriorly from the kidney measuring 6.2 x 5.5 x 6.6 cm. Smaller cyst from the superior pole measures 2.4 x 2.1 x 2.4 cm. No renal obstruction. Left kidney: 8.4 cm x 4.4 cm x 4.6 cm. Cortex: 1.0 cm. Mild atrophy LEFT kidney with mild cortical thinning. No obstruction. Cortical cyst superior kidney measures 1.3 x 1.3 x 0.9 cm. Spleen: 7.4 cm. Normal size spleen. There are a few calcified granuloma. Hypoechoic nodules in the spleen. The largest measures 1.0 x 1.0 x 0.7 cm. Aorta and IVC: Unremarkable abdominal aorta and IVC. US/US abdomen complete* [id number] Impression: 1. Bilateral renal cysts. The largest from the anterior RIGHT kidney measures 6.2 x 5.5 x 6.6 cm. 2. Mild bilateral renal atrophy with cortical thinning. 3. Scattered nodules of decreased echogenicity in the spleen. Metastatic disea se may appear similar. These may be hemangiomas or complex cysts. Recommend fol low-up CT abdomen and pelvis with IV contrast. 4. Negative gallbladder. 5. No liver mass seen.
[2025-05-28 12:43] LABS: Hematocrit 37.7 % (36-47); Hemoglobin 11.80 g/dL (11.27-16.99); Mean Corpuscular HGB Conc 31.3 g/dL (30-55); Mean Corpuscular Hemoglobin 27.7 pg (27-33); Mean Corpuscular Volume 88.5 fl (85-98); Nucleated Red Blood Cells % 0 %; Platelet Count 443 10^3/cmm (157-399); Red Blood Count 4.26 10^6/uL (3.85-5.65); White Blood Count 22.04 10^3/uL (3.29-11.43)
[2025-05-28 13:13] LABS: Alanine Aminotransferase 7 U/L (0-33); Albumin Level 3.5 g/dL (3.5-5.2); Alkaline Phosphatase 178 U/L (35-105); Anion Gap 19.4 (5-19); Aspartate Amino Transferase 14 U/L (0-32); Blood Urea Nitrogen 46 mg/dL (8-23); Calcium 10.3 mg/dL (8.5-10.5); Carbon Dioxide 24 mmol/L (22-29); Chloride 98 mmol/L (98-107); Globulin 3.9 g/dL (1.3-4.6); Glucose 100 mg/dL (65-115); Osmolality Calculated 296 mOsm/kg (285-295); Potassium 4.4 mmol/L (3.5-5.1); Sodium 137 mmol/L (136-145); Total Protein 7.4 g/dL (6.6-8.7)
[2025-05-29 15:23] LABS: Leukemia Profile (BBPL) See Report
[2025-05-30 22:54] LABS: BCR ABL1 (IS) 0.000 (0.000); BCR ABL1/ALB1 % 0.000 (0.000); P190 BCR ALB1 NOT DETECTED; P190 BCR ALB1 Yes Test Yes; P210 BCR ALB1 NOT DETECTED; P210 BCR ALB1 Yes Test Yes; Source whole blood
[2025-06-04 09:38] LABS: Hematocrit 37.7 % (36-47); Hemoglobin 11.50 g/dL (11.27-16.99); Mean Corpuscular HGB Conc 30.5 g/dL (30-55); Mean Corpuscular Hemoglobin 27.3 pg (27-33); Mean Corpuscular Volume 89.5 fl (85-98); Nucleated Red Blood Cells % 0 %; Platelet Count 345 10^3/cmm (157-399); Red Blood Count 4.21 10^6/uL (3.85-5.65); White Blood Count 18.34 10^3/uL (3.29-11.43)
[2025-06-04 10:05] LABS: Alanine Aminotransferase 6 U/L (0-33); Albumin Level 3.3 g/dL (3.5-5.2); Alkaline Phosphatase 168 U/L (35-105); Anion Gap 21.6 (5-19); Aspartate Amino Transferase 14 U/L (0-32); Blood Urea Nitrogen 46 mg/dL (8-23); Calcium 11.3 mg/dL (8.5-10.5); Carbon Dioxide 23 mmol/L (22-29); Chloride 97 mmol/L (98-107); Globulin 3.9 g/dL (1.3-4.6); Glucose 114 mg/dL (65-115); Osmolality Calculated 297 mOsm/kg (285-295); Potassium 4.6 mmol/L (3.5-5.1); Sodium 137 mmol/L (136-145); Total Protein 7.2 g/dL (6.6-8.7)
[2025-06-11] MEDS: iohexol 350 mg/mL 500 mL Btl (per mL) IV (08:27)
--- NOTE | 2025-06-11 09:30 | CT_ITS ---
WS: [id number] CT ABDOMEN AND PELVIS WITH CONTRAST HISTORY: Incidental finding in spleen 05/23/25 US ABD. Hx breast CA. TECHNIQUE: Imaging performed of the abdomen and pelvis with IV contrast. Single phase imaging of the abdomen. Coronal and sagittal reformats are submitted. All CT scans at [facility] use at least one of these dose optimization techniques: automated exposure control; mA and/or kV adjustment per patient size (includes targeted exams where dose is matched to clinical indication); or iterative reconstruction. IV CONTRAST: Omnipaque 350; 100 mL IV. Oral contrast: No DLP: 241.98 mGy.cm COMPARISON: 06/04/2025, ultrasound 05/23/2025 Lower thorax: 3 mm nodule at the RIGHT lung base. Heart is normal size. Moderate size hiatal hernia. Liver/biliary system: Normal size liver. Focal fatty sparing along the falciform ligament. Granulomatous disease. There are a few very tiny low-attenuation nodules within the spleen liver. Gallbladder: Normal. No gallstones or wall thickening. No pericholecystic fluid. Pancreas: Mild diffuse atrophy. Spleen: Normal size spleen with granuloma. Numerous low-attenuation masses scattered throughout the spleen are identified with the largest measuring 10 mm. Adrenal glands: Normal. Right kidney: No obstruction. Cortical cyst. Left kidney: No obstruction. Nonobstructing central renal calcification measures 6 mm. Too small to characterize cortical hypodensities. Slight perinephric stranding. Aorta: Mild atherosclerosis with no aneurysm. Lymphadenopathy: None. Free fluid: None. GI tract: No GI tract obstruction. New high-density foci in the cecum and terminal ileum are probably medicinal as these are new since 06/04/2025. Mild increase fluid in the distal small bowel but no obstruction. Diverticulosis without diverticulitis. Abdominal wall: Fat containing umbilical hernia. Pelvis: Atrophic uterus. Bones: Patient has known extensive lytic bone metastasis with soft tissue components. Previously described in detail on 06/04/2025. CT/CT abdomen pelvis w con* [id number] IMPRESSION: 1. 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 2. Patient has extensive osteolytic metastatic bone disease which was previous ly described on 06/04/2025. 3. Tiny low-attenuation foci within the liver may be early metastatic sites. 4. Bilateral renal cysts. 5. Small amount of increased fluid in the small bowel but no obstruction. 6. No free air or obstruction. 7. 6 mm nonobstructing calcifications LEFT renal pelvis. 8. Diverticulosis without acute diverticulitis.
== END 2025-06-11 23:59 | disposition home or self-care (01) ==
LOC: RAD 06-12 00:01 → ONCMED 06-16 10:11
PROVIDERS: Nurse Practitioner; PCP Nurse Practitioner Family; Visit Provider Internal Medicine
DX: Z53.9 Procedure and treatment not carried out, unspecified reason; Z85.3 Personal history of malignant neoplasm of breast; D73.9 Disease of spleen, unspecified; C79.51 Secondary malignant neoplasm of bone; K76.9 Liver disease, unspecified; N28.1 Cyst of kidney, acquired; K57.90 Diverticulosis of intestine, part unspecified, without perforation or abscess without bleeding
CPT/HCPCS: 36415; 71046; 74177; 76700; 80053; 81206; 81207; 82607; 82728; 82746; 83010; 83540; 83550; 83615; 85025; 85045; 86880; 88184; 88185; 99213; 99214